=== PATIENT | female | born 1950 | race African-American/Black ===

== ENCOUNTER 2016-05-26 20:42 | Emergency (ER) | payer MEDICARE, MEDICAID ==
[~2016-05-26] VITALS: Ht 167.6 cm; Wt 51.7 kg
[~2016-05-26 20:42] MED LIST: ALBUTEROL SULF8.5 GM INH; AMLODIPINE BESY10 MG PO; ASPIRIN-LOW81 MG PO; ATENOLOL25 MG ORAL; AVAPRO150 MG ORAL; CATAPRES0.1 MG ORAL; DIOVAN80 MG PO; GUAIFENESIN-CO118 M1 ORAL; HYDROCHLOROTHIA25 MG ORAL; METOPROLOL SUCC25 MG ORAL; METOPROLOL TART25 MG ORAL; MICROZIDE12.5 M1 PO; NAPROXEN250 MG PO; RANITIDINE HCL150 MG ORAL; ZITHROMAX250 MG ORAL
[2016-05-26 21:15] VITALS: BP 154/76
--- NOTE | 2016-05-26 21:26 | Emergency Room Report ---
History of Present Illness General Chief Complaint: Multiple Trauma/Fall Source: Patient Present Illness HPI Patient is a 66-year-old female presented after a fall from a step ladder. Patient reported falling. She denied loss of consciousness. She denied having any fever. She denied feeling dizzy prior to falling. She reports having some bleeding from a laceration to the side of her head. She denied other locations of pain. The patient states that she takes medication for hypertension. She denied any other injuries. Allergies: Coded Allergies: No Known Allergies (Verified Allergy, Unknown, 12/19/05) Patient History Past Medical History: see triage record Reviewed Nursing Documentation: PMH: Agreed, PSxH: Agreed Nursing Documentation-PMH Hx Cardiac Problems: Yes Hx Hypertension: Yes Hx COPD: Yes Hx Cancer: No Hx Gastrointestinal Problems: No Hx Neurological Problems: No Hx Cerebrovascular Accident: Yes - 2010 Review of Systems All Other Systems: negative except mentioned in HPI Physical Exam Vital Signs Date Time Temp Pulse Resp B/P Pulse Ox O2 Delivery O2 Flow Rate FiO2 05/26/16 20:57 98.1 96 16 179/98 98 Room Air Sp02 EP Interpretation: reviewed, normal General Appearance: normal inspection, well appearing, no apparent distress, alert, GCS 15 Head: atraumatic ENT: normal ENT inspection, hearing grossly normal, normal voice Neck: normal inspection, full range of motion, supple, no bony tend Respiratory: normal inspection, lungs clear, normal breath sounds, no respiratory distress, no retraction, no wheezing Cardiovascular #1: regular rate, rhythm, no edema Gastrointestinal: normal inspection, normal bowel sounds, non tender, soft, no guarding, no hernia Genitourinary: no CVA tenderness Musculoskeletal: normal inspection, back normal, normal range of motion Neurologic: normal inspection, alert, responsive, speech normal Psychiatric: normal inspection, judgement/insight normal, mood/affect normal Skin: no rash, laceration - 1cm with minimal bleeding, overlying right parietal hematoma Medical Decision Making Diagnostic Impression: Primary Impression: Fall Additional Impressions: Blunt head trauma Contusion of scalp, initial encounter ER Course Patient presented for fall . Differential diagnosis included was not limited to neck fracture, CVA, close head injury, syncopal episode, basilar ischemia. Patient appeared to have a small laceration to the right side of her scalp. CT the head read by radiology showed soft tissue swelling without evident fracture there is no acute hemorrhage noted. CT cervical spine read by radiologist showed degenerative changes without fracture. At the time of discharge patient was awake alert and oriented, she was ambulatory without assistance.Patient was advised to discontinue her aspirin for the next 2 days. Patient's tetanus is up-to-date.The patient is advised to follow up with primary care doctor in 1 -2 days. Patient is advised to return if any worsening condition or if any changes in status that are concerning.Patient was given head injury precautions. Last Vital Signs Date Time Temp Pulse Resp B/P Pulse Ox O2 Delivery O2 Flow Rate FiO2 05/26/16 20:57 98.1 96 16 179/98 98 Room Air Status: improved Disposition: HOME, SELF-CARE Condition: Stable Scripts Acetaminophen (Tylenol) 325 Mg Tablet 650 MG ORAL Q6H Y for Prn Pain/Headache/Temp > 101, #30 TAB 0 Refills Prov: Isaac Dutton 05/26/16 Isaac Dutton May 26, 2016 21:26
[2016-05-26] MEDS ORDERED: Bacitracin Oint UD TOPIC ONE (21:30)
[2016-05-26] MEDS ORDERED: TYLENOL325 MG ORAL (22:14)
[2016-05-26 22:35] VITALS: BP 158/72
[2016-05-26 22:40] VITALS: BP 154/76
--- NOTE | 2016-05-27 11:01 | Diagnostic Imaging Report ---
Indication: Neck pain. Technique: Continuous helical imaging of the cervical spine was obtained transaxially from the skull base to the upper thoracic spine. 2-D coronal and sagittal reformatted images were obtained. Total Dose length Product (DLP): [address] Dose Index Volume (CTDIvol): 12 mGy Comparison: None Findings: There is no acute fracture or malalignment identified. There is no soft tissue swelling identified. 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 Some of the intervertebral discs show mild narrowing. There is reversal of cervical lordosis which is possibly due to muscle spasm. The bones are osteopenic. Impression: No acute injury Mild spondylosis [facility] has communicated the preliminary results to the Emergency Department. Their findings are largely concordant with this report. The CT scanner at [facility] is accredited by the [employer] and the scans are performed using protocols designed to limit radiation exposure to as low as reasonably achievable to attain images of sufficient resolution adequate for diagnostic evaluation.
--- NOTE | 2016-05-27 12:27 | Diagnostic Imaging Report ---
Indication: Headache Technique: Contiguous 5 mm thick transaxial imaging of the head obtained in a Siemens Sensation [address] scanner. Soft tissue and bone windows generated. Total Dose length Product (DLP): [address] Dose Index Volume (CTDIvol): 70.38 mGy Comparison: 12/21/15 Findings: There is mild prominence of the ventricles, basal cisterns, and cerebral sulci consistent with atrophy. Mild, nonspecific, white matter hypoattenuation is noted throughout the brain consistent with chronic small vessel disease. There is no midline shift, edema, acute hemorrhage, mass effect, or abnormal extra-axial fluid collections. Bones and extra osseous soft tissues are unremarkable. Some mucosal thickening noted within the paranasal sinuses. Impression: No acute intracranial bleed, mass effect or edema. Mild atrophy of the brain. Nonspecific white matter hypoattenuation probably due to chronic small vessel disease. Sinusitis [facility] has communicated the preliminary results to the Emergency Department. Their findings are largely concordant with this report. The CT scanner at [facility] is accredited by the [employer] and the scans are performed using protocols designed to limit radiation exposure to as low as reasonably achievable to attain images of sufficient resolution adequate for diagnostic evaluation.
== END 2016-05-26 22:40 | disposition home or self-care (01) ==
LOC: EMR 21:23
DX: S00.03XA Contusion of scalp, initial encounter (principal); S01.01XA Laceration without foreign body of scalp, initial encounter; I10 Essential (primary) hypertension; J44.9 Chronic obstructive pulmonary disease, unspecified; Z86.73 Personal history of transient ischemic attack (TIA), and cerebral infarction without residual deficits; W11.XXXA Fall on and from ladder, initial encounter; Y92.9 Unspecified place or not applicable; Y99.8 Other external cause status
CPT/HCPCS: 70450; 72125; 99284

== ENCOUNTER 2016-08-13 13:17 | Emergency (ER) | payer MEDICARE, MEDICAID ==
[~2016-08-13] VITALS: Ht 167.6 cm; Wt 52.2 kg
[~2016-08-13 13:17] MED LIST changes: +TYLENOL325 MG ORAL
--- NOTE | 2016-08-13 13:57 | Emergency Room Report ---
History of Present Illness General Chief Complaint: Hypertension Source: Patient, Family Member Present Illness HPI The patient presents with headache and blurred vision. When this happens in the past her high blood pressure has been out of control. She's been on these blood pressure medicines for many months now. She hasn't seen her doctor for 3 months. The headache is 9/10 and radiates towards the occiput on the R. She's never had migraines before. She just takes Tylenol at home for the pain. The headache is pounding. She's had headaches this severe in the past. She also complains about nausea. She's had some blurry vision. Her sister took her blood pressure earlier today. It was over 200 systolic and they got a diastolic of 198. She felt her sister needed to come to the hospital. Last night the patient took an extra dose of atenolol. She denies any chest pain. There is no shortness of breath. Her exercise is limited by pain in her knees. She also has some pain in her shoulders and elbows. She treats this with the Tylenol also. In the past for she's had a headache like this she's received morphine and fentanyl. She states that at home she would also take Tylenol with codeine. The patient denies any fevers, upper respiratory symptoms, change in bowels, dysuria, skin rashes. She's not on blood thinners. There is some diffuse tingling but no unilateral weakness. The patient has no oncologic problems. 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 He does not smoke or drink alcohol. Allergies: Coded Allergies: No Known Allergies (Verified Allergy, Unknown, 12/19/05) Patient History Past Medical History: see triage record Social History: Denies: smoking Social History Narrative and cares for others Reviewed Nursing Documentation: PMH: Agreed, PSxH: Agreed Nursing Documentation-PMH Hx Cardiac Problems: Yes Hx Hypertension: Yes Hx COPD: Yes Hx Cancer: No Hx Gastrointestinal Problems: No Hx Neurological Problems: No Hx Cerebrovascular Accident: Yes - 2010 Review of Systems All Other Systems: negative except mentioned in HPI Physical Exam Vital Signs Date Time Temp Pulse Resp B/P Pulse Ox O2 Delivery O2 Flow Rate FiO2 08/13/16 13:23 97.7 69 20 208/108 100 Room Air Sp02 EP Interpretation: reviewed, normal General Appearance: well appearing, no apparent distress, GCS 15, thin Head: normocephalic, atraumatic Eyes: bilateral eye PERRL, bilateral eye normal inspection ENT: moist mucus membranes Neck: supple Respiratory: lungs clear, normal breath sounds Cardiovascular #1: regular rate, rhythm Cardiovascular #2: 2+ radial (R) Gastrointestinal: normal inspection, normal bowel sounds, non tender, no mass, no bruit, non-distended, scaphoid Musculoskeletal: back normal, gait/station normal, normal range of motion Neurologic: alert, oriented x3, 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 Differential includes hypertensive urgency, malignant hypertension, uncontrolled hypertension, electrolyte imbalance, renal failure amongst others. Blood pressure is high and she symptomatic. This necessitates emergent evaluation with EKG, CT, labs. The patient will be treated with Zofran and fentanyl and possibly extra antihypertensive medication for blood pressure remains high. No red flag symptoms, but needs CT. EKG with LVH, CXR with enlarged heart. Labs unremarkable. CT with sinusitis and question of L mastoiditis (not where pain is and no sinus symptoms). Given dose of catapres. BP improved and symptoms resolved. Patient stable for outpatient observation and treatment. Laboratory Tests Test 08/13/16 13:50 08/13/16 15:14 White Blood Count 6.4 K/UL (4.8-10.8) Red Blood Count 4.03 M/UL (4.20-5.40) L Hemoglobin 13.5 G/DL (12.0-16.0) Hematocrit 38.7 % (37.0-47.0) Mean Corpuscular Volume 96 FL (80-99) Mean Corpuscular Hemoglobin 33.5 PG (27.0-31.0) H Mean Corpuscular Hemoglobin Concent 34.9 G/DL (32.0-36.0) Red Cell Distribution Width 10.9 % (11.6-14.8) L Platelet Count 218 K/UL (150-450) Mean Platelet Volume 8.3 FL (6.5-10.1) Neutrophils (%) (Auto) 50.8 % (45.0-75.0) Lymphocytes (%) (Auto) 34.7 % (20.0-45.0) Monocytes (%) (Auto) 9.8 % (1.0-10.0) Eosinophils (%) (Auto) 3.3 % (0.0-3.0) H Basophils (%) (Auto) 1.3 % (0.0-2.0) Erythrocyte Sedimentation Rate 25 MM/HR (0-30) Sodium Level 132 mEQ/L (135-145) L Potassium Level 3.5 mEQ/L (3.4-4.9) Chloride Level 92 mEQ/L (98-107) L Carbon Dioxide Level 25 mEQ/L (20-30) Anion Gap 15 (5-15) Blood Urea Nitrogen 6 mg/dL (7-23) L Creatinine 0.7 mg/dL (0.5-0.9) Estimate Glomerular Filtration Rate > 60 mL/min (>60) Glucose Level 91 mg/dL (74-106) Calcium Level 8.7 mg/dL (8.6-10.2) Total Bilirubin 0.4 mg/dL (0.0-1.2) Aspartate Amino Transferase (AST) 21 U/L (5-40) Alanine Aminotransferase (ALT) 10 U/L (3-33) Alkaline Phosphatase 72 U/L (35-104) Total Creatine Kinase 81 U/L (26-140) Creatine Kinase MB < 1.5 ng/mL (< 3.8) Creatine Kinase MB Relative Index Troponin I < 0.30 ng/mL (<=0.30) Pro-B-Type Natriuretic Peptide 255 pg/mL (0-125) H Total Protein 7.2 g/dL (6.6-8.7) Albumin 4.0 g/dL (3.5-5.2) Globulin 3.2 g/dL Albumin/Globulin Ratio 1.2 (1.0-2.7) Urine Color Pale yellow Urine Appearance Clear Urine pH 6.5 (4.5-8.0) Urine Specific [place] 1.005 (1.005-1.035) Urine Protein 1+ (NEGATIVE) H Urine Glucose (UA) Negative (NEGATIVE) Urine Ketones Negative (NEGATIVE) Urine Occult Blood 4+ (NEGATIVE) H Urine Nitrite Negative (NEGATIVE) Urine Bilirubin Negative (NEGATIVE) Urine Urobilinogen Normal MG/DL (0.0-1.0) Urine Leukocyte Esterase Negative (NEGATIVE) Urine RBC 5-10 /HPF (0 - 2) H Urine WBC 2-4 /HPF (0 - 2) Urine Squamous Epithelial Cells Few /LPF (NONE/OCC) Urine Bacteria Few /HPF (NONE) EKG Diagnostic Results Rate: normal Rhythm: NSR ST Segments: no acute changes - LVH Rhythm Strip Diag. Results EP Interpretation: yes Rhythm: NSR, no PVC's, no ectopy Chest X-Ray Diagnostic Results EP Interpretation: Yes Findings: no consolidation, no effusion, no pneumothorax, other - increased cor CT/MRI/US Diagnostic Results CT/MRI/US Diagnostic Results : Imaging Test Ordered: head Impression chronic white matter changes sinusitis and poss mastoiditis Last Vital Signs Date Time Temp Pulse Resp B/P Pulse Ox O2 Delivery O2 Flow Rate FiO2 08/13/16 16:28 76 16 140/90 98 Room Air 08/13/16 16:11 97.7 Status: improved Disposition: HOME, SELF-CARE Condition: Improved Vishal Mcneill M.D. August 13, 2016 13:57
[2016-08-13] MEDS ORDERED: fentaNYL 100 mcg/2 mL IV ONE (14:00)
[2016-08-13 14:12] LABS: BASOPHILS % (AUTO) 1.3 % (0.0-2.0); EOSINOPHILS % (AUTO) 3.3 % (0.0-3.0); LYMPHOCYTES % (AUTO) 34.7 % (20.0-45.0); MEAN CORPUSCULAR HEMOGLOBIN 33.5 PG (27.0-31.0); MEAN CORPUSCULAR HGB CONC 34.9 G/DL (32.0-36.0); MEAN CORPUSCULAR VOLUME 96 FL (80-99); MEAN PLATELET VOLUME 8.3 FL (6.5-10.1); MONOCYTES % (AUTO) 9.8 % (1.0-10.0); NEUTROPHILS % (AUTO) 50.8 % (45.0-75.0); PLATELET COUNT 218 K/UL (150-450); RED BLOOD COUNT 4.03 M/UL (4.20-5.40); RED CELL DISTRIBUTION WIDTH 10.9 % (11.6-14.8); WHITE BLOOD COUNT 6.4 K/UL (4.8-10.8)
[2016-08-13 14:20] LABS: TROPONIN I < 0.30 ng/mL (<=0.30)
[2016-08-13 14:21] LABS: ALANINE AMINOTRANSFERASE 10 U/L (3-33); ALBUMIN/GLOBULIN RATIO 1.2 (1.0-2.7); ANION GAP 15 (5-15); ASPARTATE AMINO TRANSFERASE 21 U/L (5-40); CALCIUM 8.7 mg/dL (8.6-10.2); CARBON DIOXIDE 25 mEQ/L (20-30); CHLORIDE 92 mEQ/L (98-107); CREATININE 0.7 mg/dL (0.5-0.9); GLOMERULAR FILTRATION RATE > 60 mL/min (>60); HEMOLYSIS 7; POTASSIUM 3.5 mEQ/L (3.4-4.9); SODIUM 132 mEQ/L (135-145); TOTAL PROTEIN 7.2 g/dL (6.6-8.7)
[2016-08-13 14:31] LABS: CKMB < 1.5 ng/mL (< 3.8)
[2016-08-13] MEDS ORDERED: cloNIDine 0.2mg Tab ORAL ONE (15:00)
[2016-08-13 15:32] VITALS: BP 188/97
[2016-08-13 15:45] LABS: APPEARANCE,URINE CLEAR; KETONES,URINE NEGATIVE (NEGATIVE); LEUKOCYTE ESTERASE ,URINE NEGATIVE (NEGATIVE); NITRITE,URINE NEGATIVE (NEGATIVE); PH,URINE 6.5 (4.5-8.0); PROTEIN,URINE 1+ (NEGATIVE); UROBILINOGEN,URINE NORMAL MG/DL (0.0-1.0)
[2016-08-13 15:53] LABS: BACTERIA,URINE FEW /HPF; SQUAMOUS EPITHELIAL CELL,UR FEW /LPF (NONE/OCC)
[2016-08-13 16:11] VITALS: BP 149/78
--- NOTE | 2016-08-13 16:23 | Diagnostic Imaging Report ---
Indications: Shortness of breath, dizziness Technique: Portable AP chest Findings: Comparison: 12/21/2015 Cardiac silhouette remains enlarged. Pulmonary vasculature remains within normal limits. Lungs and pleura remain clear. IMPRESSION: No evidence of acute disease, unchanged Stable chronic changes as described
[2016-08-13 16:28] VITALS: BP 140/90
--- NOTE | 2016-08-13 16:35 | Diagnostic Imaging Report ---
Indications: Vertigo Technique: Continuous helical CT imaging of the brain was performed with automatic exposure control on a Siemens sensation [address] scanner. Axial and coronal images were reconstructed at 5 mm slice thickness and interval. CTDI volume(s): 70 mGy Total DLP: 1350 mGy-cm Findings: Comparison: 05/26/16 Chronic microvascular ischemic changes bilateral cerebral periventricular and deep white matter, diffuse atrophy unchanged.. No evidence of mass or hemorrhage, other attenuation abnormality, mass effect, midline shift, hydrocephalus or increased intracranial pressure. Bone window images are unremarkable. Mucoperiosteal thickening persists in the paranasal sinuses. Partial opacification of the left mastoid air cells persists. Right Mastoid air cells are clear. IMPRESSION: No evidence of acute intracranial pathology, unchanged . Early/subtle acute abnormalities may be missed, however. If clinically indicated, MRI of the brain without and with gadolinium may be of benefit in further evaluation Stable sinusitis, left mastoiditis. Stable chronic age-related changes as described The CT scanner at [facility] is accredited by the [employer] and the scans are performed using protocols designed to limit radiation exposure to as low as reasonably achievable to attain images of sufficient resolution adequate for diagnostic evaluation.
--- NOTE | 2016-08-14 19:00 | Cardiology Report ---
APPROVED REPORT EKG Measurement Heart [id number] Normal sinus rhythm Voltage criteria for left ventricular hypertrophy Nonspecific ST abnormality Abnormal ECG
[2016-08-15] MEDS ORDERED: CATAPRES0.2 MG ORAL (21:08)
== END 2016-08-13 16:31 | disposition home or self-care (01) ==
LOC: EMR 14:39
DX: I10 Essential (primary) hypertension (principal); R51 Headache; Z86.79 Personal history of other diseases of the circulatory system; J44.9 Chronic obstructive pulmonary disease, unspecified; Z86.73 Personal history of transient ischemic attack (TIA), and cerebral infarction without residual deficits
CPT/HCPCS: 36415; 70450; 71010; 80053; 81003; 82550; 82553; 83880; 84484; 85025; 85651; 93005; 96374; 96375; 99284; J2405; J3010

== ENCOUNTER 2016-11-17 07:53 | Emergency (ER) | payer MEDICARE, MEDICAID ==
[~2016-11-17] VITALS: Ht 165.1 cm; Wt 45.4 kg
[~2016-11-17 07:53] MED LIST changes: +CATAPRES0.2 MG ORAL
[2016-11-17 07:55] VITALS: BP 189/95
[2016-11-17] MEDS ORDERED: HYDRALAZINE HCL50 MG ORAL (08:05)
[2016-11-17] MEDS ORDERED: LOPRESSOR25 M1 ORAL (08:05)
[2016-11-17 08:32] VITALS: BP 165/98
[2016-11-17 08:47] LABS: ALANINE AMINOTRANSFERASE 10 U/L (3-33); ALBUMIN/GLOBULIN RATIO 1.4 (1.0-2.7); ANION GAP 12 (5-15); ASPARTATE AMINO TRANSFERASE 19 U/L (5-40); CALCIUM 9.2 mg/dL (8.6-10.2); CARBON DIOXIDE 25 mEQ/L (20-30); CHLORIDE 91 mEQ/L (98-107); CREATININE 0.9 mg/dL (0.5-0.9); GLOMERULAR FILTRATION RATE > 60 mL/min (>60); HEMOLYSIS 4; POTASSIUM 3.4 mEQ/L (3.4-4.9); SODIUM 128 mEQ/L (135-145); TOTAL PROTEIN 7.5 g/dL (6.6-8.7)
[2016-11-17 08:49] LABS: BASOPHILS % (AUTO) 1.5 % (0.0-2.0); EOSINOPHILS % (AUTO) 3.2 % (0.0-3.0); MEAN CORPUSCULAR HEMOGLOBIN 33.9 PG (27.0-31.0); MEAN CORPUSCULAR HGB CONC 34.3 G/DL (32.0-36.0); MEAN CORPUSCULAR VOLUME 99 FL (80-99); MEAN PLATELET VOLUME 7.9 FL (6.5-10.1); MONOCYTES % (AUTO) 9.6 % (1.0-10.0); NEUTROPHILS % (AUTO) 64.8 % (45.0-75.0); PLATELET COUNT 245 K/UL (150-450); RED BLOOD COUNT 3.89 M/UL (4.20-5.40); RED CELL DISTRIBUTION WIDTH 11.3 % (11.6-14.8); TROPONIN I < 0.30 ng/mL (<=0.30); WHITE BLOOD COUNT 8.5 K/UL (4.8-10.8)
[2016-11-17 08:58] LABS: CKMB < 1.5 ng/mL (< 3.8)
--- NOTE | 2016-11-17 09:09 | Emergency Room Report ---
History of Present Illness General Chief Complaint: Hypertension Source: Patient Present Illness HPI 66-year-old female presents ED for evaluation. Patient presents with high blood pressure. States that this morning her systolic blood pressure was greater than 200. She presented with headache. Throbbing, frontal, 5/10. Patient states she gets headaches typically when her blood pressure is high. States that she is compliant with her medications but has trouble keeping her blood pressure controlled. Denies any drug use. Denies any chest pain shortness of breath. Denies photophobia, blurry vision, nausea or vomiting. No other aggravating relieving factors. Denies any other associated symptoms Allergies: Coded Allergies: No Known Allergies (Verified Allergy, Unknown, 12/19/05) Patient History Past Medical History: HTN, COPD, CVA/TIA Past Surgical History: none Pertinent Family History: none Social History: Denies: smoking, alcohol use, drug use Now: No Immunizations: UTD Reviewed Nursing Documentation: PMH: Agreed, PSxH: Agreed Nursing Documentation-PMH Hx Cardiac Problems: Yes - Palpatations Hx Hypertension: Yes Hx COPD: Yes Hx Cancer: No Hx Gastrointestinal Problems: No Hx Neurological Problems: No Hx Cerebrovascular Accident: Yes - 2010 Review of Systems All Other Systems: negative except mentioned in HPI Physical Exam Vital Signs Date Time Temp Pulse Resp B/P (MAP) Pulse Ox O2 Delivery O2 Flow Rate FiO2 11/17/16 07:55 97.7 62 16 189/95 98 Room Air Sp02 EP Interpretation: reviewed, normal General Appearance: no apparent distress, alert, GCS 15, non-toxic Head: normocephalic, atraumatic Eyes: bilateral eye normal inspection, bilateral eye PERRL ENT: hearing grossly normal, normal pharynx, no angioedema, normal voice Neck: full range of motion, supple, no meningismus, supple/symm/no masses Respiratory: chest non-tender, lungs clear, normal breath sounds, speaking full sentences Cardiovascular #1: regular rate, rhythm, no edema Cardiovascular #2: 2+ carotid (R), 2+ carotid (L), 2+ radial (R), 2+ radial (L) , 2+ dorsalis pedis (R), 2+ dorsalis pedis (L) Gastrointestinal: normal bowel sounds, non tender, soft, non-distended, no guarding, no rebound Rectal: deferred Genitourinary: normal inspection, no CVA tenderness Musculoskeletal: back normal, gait/station normal, normal range of motion, non- tender Neurologic: alert, oriented x3, responsive, motor strength/tone normal, sensory intact, speech normal Psychiatric: judgement/insight normal, memory normal, mood/affect normal, no suicidal/homicidal ideation Reflexes: 3+ bicep (R), 3+ bicep (L), 3+ tricep (R), 3+ tricep (L), 3+ knee (R) , 3+ knee (L) Skin: normal color, no rash, warm/dry, well hydrated Lymphatic: no adenopathy Medical Decision Making Diagnostic Impression: Primary Impression: Hypertension Qualified Codes: I10 - Essential (primary) hypertension ER Course Hospital Course 66-year-old female presents ED complaining of elevated BP, c/o headache Differential diagnoses include: hypertensive urgency, hypertensive emergency, arrythmia, MS/ACS Clinical course Patient placed on stretcher. After initial history and physical I ordered labs , EKG, CT labs reviewed- all electrolytes normal, troponins negative, no leukocytosis, hemoglobin/hematocrit stable EKG - NSR, no acute ischemic changes intrpreted by me CT Head unremarkable upon reassessment patient's BP has reduced on its own without intervention. Patient is on 3 medications to be taken twice daily. Patient also prescribed clonidine. I recommend that patient take a clonidine if her blood pressure is high before she is scheduled for her next dose of medications. I. I feel this is a highly complex case requiring extensive working including EKG/Rhythm strip, Xray/CT/US, Blood/urine lab work, repeat exams while in ED, and administration of strong opiates/narcotics for pain control, admission to hospital or close patient follow up. Diagnosis - hypertension Stable and discharged to home. Take medications as directed. Instructed to followup with PMD. Return to ED if symptoms recur or worsen Labs Test 11/17/16 08:25 White Blood Count 8.5 K/UL (4.8-10.8) Red Blood Count 3.89 M/UL (4.20-5.40) Hemoglobin 13.2 G/DL (12.0-16.0) Hematocrit 38.4 % (37.0-47.0) Mean Corpuscular Volume 99 FL (80-99) Mean Corpuscular Hemoglobin 33.9 PG (27.0-31.0) Mean Corpuscular Hemoglobin Concent 34.3 G/DL (32.0-36.0) Red Cell Distribution Width 11.3 % (11.6-14.8) Platelet Count 245 K/UL (150-450) Mean Platelet Volume 7.9 FL (6.5-10.1) Neutrophils (%) (Auto) 64.8 % (45.0-75.0) Lymphocytes (%) (Auto) 21.0 % (20.0-45.0) Monocytes (%) (Auto) 9.6 % (1.0-10.0) Eosinophils (%) (Auto) 3.2 % (0.0-3.0) Basophils (%) (Auto) 1.5 % (0.0-2.0) Sodium Level 128 mEQ/L (135-145) Potassium Level 3.4 mEQ/L (3.4-4.9) Chloride Level 91 mEQ/L (98-107) Carbon Dioxide Level 25 mEQ/L (20-30) Anion Gap 12 (5-15) Blood Urea Nitrogen 8 mg/dL (7-23) Creatinine 0.9 mg/dL (0.5-0.9) Estimat Glomerular Filtration Rate > 60 mL/min (>60) Glucose Level 95 mg/dL (74-106) Calcium Level 9.2 mg/dL (8.6-10.2) Total Bilirubin 0.7 mg/dL (0.0-1.2) Aspartate Amino Transf (AST/SGOT) 19 U/L (5-40) Alanine Aminotransferase (ALT/SGPT) 10 U/L (3-33) Alkaline Phosphatase 73 U/L (35-104) Total Creatine Kinase 64 U/L (26-140) Creatine Kinase MB < 1.5 ng/mL (< 3.8) Creatine Kinase MB Relative Index Troponin I < 0.30 ng/mL (<=0.30) Total Protein 7.5 g/dL (6.6-8.7) Albumin 4.4 g/dL (3.5-5.2) Globulin 3.1 g/dL Albumin/Globulin Ratio 1.4 (1.0-2.7) EKG Diagnostic Results Rate: normal Rhythm: NSR ST Segments: no acute changes ASA given to the pt in ED: No Rhythm Strip Diag. Results EP Interpretation: yes Rhythm: NSR, no PVC's, no ectopy CT/MRI/US Diagnostic Results CT/MRI/US Diagnostic Results : Imaging Test Ordered: CT Head Last Vital Signs Date Time Temp Pulse Resp B/P (MAP) Pulse Ox O2 Delivery O2 Flow Rate FiO2 11/17/16 08:32 97.7 58 17 165/98 99 Room Air Status: improved Disposition: HOME, SELF-CARE Condition: Stable Referrals: Tommy Enrique MD (PCP) TAL SEGURA M.D. Nov 17, 2016 09:09
[2016-11-17 09:15] VITALS: BP 174/78
--- NOTE | 2016-11-17 09:19 | Diagnostic Imaging Report ---
Indication: Headache Technique: Contiguous 5 mm thick transaxial imaging of the head obtained in a Siemens Sensation [address] scanner. Soft tissue and bone windows generated. Total Dose length Product (DLP): [address] Dose Index Volume (CTDIvol): 70.38, 0.15 mGy Comparison: 08/13/16 Findings: There is moderate prominence of the ventricles, basal cisterns, and cerebral sulci consistent with atrophy. Moderate, nonspecific, white matter hypoattenuation is noted throughout the brain consistent with chronic small vessel disease. There is no midline shift, edema, acute hemorrhage, mass effect, or abnormal extra-axial fluid collections. Bones and extra osseous soft tissues are unremarkable. There is mucosal thickening in the ethmoid sinus. Impression: No acute intracranial bleed, mass effect or edema. Moderate atrophy of the brain. Evidence of chronic small vessel disease involving white matter tracts. Sinusitis The CT scanner at [facility] is accredited by the [employer] and the scans are performed using dose optimization techniques as appropriate to a performed exam including Automatic Exposure control.
[2016-11-17] MEDS ORDERED: Famotidine 20 MG/ 2ML VIAL IVP ONE (09:30)
[2016-11-17 09:37] VITALS: BP 174/78
== END 2016-11-17 09:46 | disposition home or self-care (01) ==
LOC: EMR 08:16
DX: I10 Essential (primary) hypertension (principal); J44.9 Chronic obstructive pulmonary disease, unspecified; Z86.73 Personal history of transient ischemic attack (TIA), and cerebral infarction without residual deficits
CPT/HCPCS: 36415; 70450; 80053; 82550; 82553; 84484; 85025; 93005; 96374; 99284; S0028

== ENCOUNTER 2017-04-19 19:11 | Inpatient (IN) | payer MEDICARE, MEDICAID ==
[~2017-04-19] VITALS: Ht 165.1 cm; Wt 46.7 kg
[~2017-04-19 19:11] MED LIST changes: +HYDRALAZINE HCL50 MG ORAL; +LOPRESSOR25 M1 ORAL
[2017-04-19 20:15] VITALS: BP 220/125
[2017-04-19] MEDS ORDERED: Albuterol ud Inhalation HHN ONE (20:45)
[2017-04-19] MEDS ORDERED: Ipratropium 0.02% Inh Soln 2.5ml UD HHN ONE (20:45)
[2017-04-19 21:40] VITALS: BP 192/92
[2017-04-19 21:51] LABS: BASOPHILS % (AUTO) 1.6 % (0.0-2.0); EOSINOPHILS % (AUTO) 2.2 % (0.0-3.0); HEMATOCRIT 32.3 % (37.0-47.0); HEMOGLOBIN 11.3 G/DL (12.0-16.0); LYMPHOCYTES % (AUTO) 30.2 % (20.0-45.0); MEAN CORPUSCULAR VOLUME 97 FL (80-99); MONOCYTES % (AUTO) 13.5 % (1.0-10.0); NEUTROPHILS % (AUTO) 52.5 % (45.0-75.0); PLATELET COUNT 200 K/UL (150-450); RED BLOOD COUNT 3.33 M/UL (4.20-5.40); RED CELL DISTRIBUTION WIDTH 11.6 % (11.6-14.8); WHITE BLOOD COUNT 6.5 K/UL (4.8-10.8)
[2017-04-19] MEDS ORDERED: Solu-MEDROL 125mg Inj IVP ONE (22:00)
[2017-04-19 22:03] LABS: ANION GAP 10 mmol/L (5-15); BLOOD UREA NITROGEN 15 mg/dL (7-18); CALCIUM 8.9 MG/DL (8.5-10.1); CARBON DIOXIDE 29 MMOL/L (21-32); CHLORIDE 100 MMOL/L (98-107); POTASSIUM 3.1 MMOL/L (3.5-5.1); SODIUM 139 MMOL/L (136-145)
[2017-04-19] MEDS ORDERED: Nitroglycerin Subl 0.4mg tab SL PRN (22:15)
[2017-04-19] MEDS ORDERED: Miralax 17gm pkt ORAL PRN (22:15)
[2017-04-19] MEDS ORDERED: Labetalol 5mg/ml 20ml vial IV PRN (22:15)
[2017-04-19] MEDS ORDERED: dilTIAZem HCl 25mg/5ml Inj IV PRN (22:15)
[2017-04-19 22:18] LABS: ALANINE AMINOTRANSFERASE 15 U/L (12-78); ALBUMIN 3.7 G/DL (3.4-5.0); ALBUMIN/GLOBULIN RATIO 1.1 (1.0-2.7); ALKALINE PHOSPHATASE 72 U/L (46-116); ASPARTATE AMINO TRANSFERASE 18 U/L (15-37); BILIRUBIN,TOTAL 0.5 MG/DL (0.2-1.0); CKMB < 0.5 NG/ML (0.0-3.6); CREATINE KINASE 63 U/L (26-308)
[2017-04-19 22:30] VITALS: BP 168/88
--- NOTE | 2017-04-19 23:16 | Emergency Room Report ---
History of Present Illness General Chief Complaint: Upper Respiratory Illness Source: Patient Present Illness HPI Patient is a 67-year-old female who presented after increased cough congestion and difficulty breathing. Patient gradual onset of symptoms. She reports having some chest tightness she states that she had been compliant with her blood pressure medications. She reports having prior history of hypertension. She denies being a smoker Allergies: Coded Allergies: No Known Allergies (Verified Allergy, Unknown, 12/19/05) Patient History Past Medical History: see triage record Reviewed Nursing Documentation: PMH: Agreed, PSxH: Agreed Nursing Documentation-PMH Hx Cardiac Problems: Yes - Palpatations Hx Hypertension: Yes Hx COPD: Yes Hx Cancer: No Hx Gastrointestinal Problems: No Hx Neurological Problems: No Hx Cerebrovascular Accident: Yes - 2010 Review of Systems All Other Systems: negative except mentioned in HPI Physical Exam Vital Signs Date Time Temp Pulse Resp B/P (MAP) Pulse Ox O2 Delivery O2 Flow Rate FiO2 04/19/17 20:02 97.7 84 16 226/127 97 Room Air Sp02 EP Interpretation: reviewed, normal General Appearance: normal inspection, well appearing, no apparent distress, alert, GCS 15 Head: atraumatic ENT: normal ENT inspection, hearing grossly normal, normal voice Neck: normal inspection, full range of motion, supple, no bony tend Respiratory: normal inspection, no respiratory distress, no retraction, speaking full sentences, wheezing Cardiovascular #1: regular rate, rhythm, no edema Gastrointestinal: normal inspection, normal bowel sounds, non tender, soft, no guarding, no hernia Genitourinary: no CVA tenderness Musculoskeletal: normal inspection, back normal, normal range of motion Neurologic: normal inspection, alert, oriented x3, responsive, cone operator III-XII nml as tested, speech normal Psychiatric: normal inspection, judgement/insight normal, mood/affect normal Skin: normal inspection, normal color, no rash Medical Decision Making Diagnostic Impression: Primary Impression: Uncontrolled hypertension Additional Impressions: Headache Chest pain ER Course Patient presented for chest pain. Differential included but was not limited to anemia, pneumonia, pneumothorax, myocardial infarction, pericardial effusion, congestive heart failure, acidosis. Because of complexity of patient's case laboratory testing and imaging studies were ordered. the patient noted be markedly hypertensive. She is given clonidine by mouth as well as breathing treatment. Patient was noted to be continued to have some chest discomfort. The patient was given clonidine for blood pressure. Dr. Tommy Enrique was contacted for inpatient management Labs Test 04/19/17 21:05 White Blood Count 6.5 K/UL (4.8-10.8) Red Blood Count 3.33 M/UL (4.20-5.40) Hemoglobin 11.3 G/DL (12.0-16.0) Hematocrit 32.3 % (37.0-47.0) Mean Corpuscular Volume 97 FL (80-99) Mean Corpuscular Hemoglobin 33.9 PG (27.0-31.0) Mean Corpuscular Hemoglobin Concent 34.9 G/DL (32.0-36.0) Red Cell Distribution Width 11.6 % (11.6-14.8) Platelet Count 200 K/UL (150-450) Mean Platelet Volume 8.6 FL (6.5-10.1) Neutrophils (%) (Auto) 52.5 % (45.0-75.0) Lymphocytes (%) (Auto) 30.2 % (20.0-45.0) Monocytes (%) (Auto) 13.5 % (1.0-10.0) Eosinophils (%) (Auto) 2.2 % (0.0-3.0) Basophils (%) (Auto) 1.6 % (0.0-2.0) Sodium Level 139 MMOL/L (136-145) Potassium Level 3.1 MMOL/L (3.5-5.1) Chloride Level 100 MMOL/L (98-107) Carbon Dioxide Level 29 MMOL/L (21-32) Anion Gap 10 mmol/L (5-15) Blood Urea Nitrogen 15 mg/dL (7-18) Creatinine 1.0 MG/DL (0.55-1.30) Estimat Glomerular Filtration Rate > 60 mL/min (>60) Glucose Level 93 MG/DL (74-106) Calcium Level 8.9 MG/DL (8.5-10.1) Total Bilirubin 0.5 MG/DL (0.2-1.0) Aspartate Amino Transf (AST/SGOT) 18 U/L (15-37) Alanine Aminotransferase (ALT/SGPT) 15 U/L (12-78) Alkaline Phosphatase 72 U/L (46-116) Total Creatine Kinase 63 U/L (26-308) Creatine Kinase MB < 0.5 NG/ML (0.0-3.6) Creatine Kinase MB Relative Index 0.7 Troponin I 0.000 ng/mL (0.000-0.056) Pro-B-Type Natriuretic Peptide 429 pg/mL (0-125) Total Protein 7.0 G/DL (6.4-8.2) Albumin 3.7 G/DL (3.4-5.0) Globulin 3.3 g/dL Albumin/Globulin Ratio 1.1 (1.0-2.7) EKG Diagnostic Results Rate: normal Rhythm: NSR ST Segments: no acute changes Rhythm Strip Diag. Results EP Interpretation: yes Rhythm: NSR, no PVC's, no ectopy Last Vital Signs Date Time Temp Pulse Resp B/P (MAP) Pulse Ox O2 Delivery O2 Flow Rate FiO2 04/19/17 21:40 97.9 92 19 192/92 100 Room Air Status: improved Disposition: ADMITTED INPATIENT Condition: Serious Referrals: Tommy Enrique MD (PCP) Isaac Dutton Apr 19, 2017 23:16
[2017-04-19 23:55] VITALS: BP 160/99
[2017-04-20] MEDS: Enalaprilat 2.5mg/2ml Inj IV PRN ×2 (01:15→12:22)
[2017-04-20 04:00] VITALS: BP 160/91
[2017-04-20] MEDS: Solu-MEDROL 125mg Inj IV SCH ×4 (06:48→17:45)
[2017-04-20] MEDS: Albuterol/Ipratropium 3ml neb HHN PRN ×2 (06:52→15:29)
[2017-04-20 08:00] VITALS: BP 153/77
[2017-04-20 08:12] LABS: INR 0.9 (0.9-1.1)
[2017-04-20 08:23] LABS: HEMATOCRIT 32.8 % (37.0-47.0); HEMOGLOBIN 11.2 G/DL (12.0-16.0); MEAN CORPUSCULAR VOLUME 98 FL (80-99); PLATELET COUNT 204 K/UL (150-450); RED BLOOD COUNT 3.34 M/UL (4.20-5.40); RED CELL DISTRIBUTION WIDTH 11.4 % (11.6-14.8); WHITE BLOOD COUNT 5.1 K/UL (4.8-10.8)
[2017-04-20 08:56] LABS: CHOLESTEROL 163 MG/DL (< 200); HDL CHOLESTEROL 111 MG/DL (40-60); TRIGLYCERIDES 32 MG/DL (30-150)
[2017-04-20] MEDS ORDERED: cloNIDine 0.2mg Tab ORAL SCH (09:00)
--- NOTE | 2017-04-20 09:03 | Diagnostic Imaging Report ---
Indication: Shortness of breath Technique: One view of the chest Comparison: 08/13/2016 Findings: Lungs and pleural spaces are clear. The heart is borderline enlarged. The aorta is elongated and tortuous. There is no significant interim change Impression: Borderline cardiomegaly. No acute process
[2017-04-20] MEDS: HydrALAZINE 50mg tab ORAL SCH ×2 (10:01→17:46)
[2017-04-20] MEDS: Irbesartan 150mg tablet ORAL SCH ×2 (10:01→20:37)
[2017-04-20] MEDS: Metoprolol Succinate XL 25mg tab ORAL SCH (10:02)
[2017-04-20] MEDS: Heparin 5000 units/ml inj SUBQ SCH ×2 (10:11→20:39)
[2017-04-20 12:00] VITALS: BP 164/97
[2017-04-20 13:00] VITALS: BP 137/71
--- NOTE | 2017-04-20 14:28 | Consultation ---
History of Present Illness General Date patient seen: Apr 20, 2017 Chief Complaint: Upper Respiratory Illness Referring physician: Dr. Cedeno Reason for Consultation: COPD Present Illness HPI 67-year-old female with hx of HTN, COPD presented to ER with CC of after increased cough congestion and difficulty breathing with gradual onset of symptoms. She reports having some chest tightness she states that she had been compliant with her blood pressure medications. She reports having prior history of hypertension. Her initial Systolic BP was > 220. She is admitted to telemetry for hypertensive emergency. Allergies: Coded Allergies: No Known Allergies (Verified Allergy, Unknown, 12/19/05) Medication History Scheduled Amlodipine Besylate* (Amlodipine Besylate*), 10 MG PO DAILY, (Reported) Aspirin (Aspirin EC), 81 MG PO DAILY, (Reported) Clonidine Hcl* (Catapres*), 0.1 MG ORAL EVERY 6 HOURS, (Reported) Clonidine Hcl* (Catapres*), 0.2 MG ORAL Q12HR Hydralazine Hcl* (Hydralazine Hcl*), 50 MG ORAL BID, (Reported) Hydrochlorothiazide* (Hydrochlorothiazide*), 25 MG ORAL DAILY, (Reported) Irbesartan* (Avapro*), 150 MG ORAL Q12HR Metoprolol Succinate* (Metoprolol Succinate*), 25 MG ORAL DAILY, (Reported) Metoprolol Tartrate (Metoprolol Tartrate), 25 MG ORAL EVERY 12 HOURS, (Reported) Ranitidine Hcl* (Zantac*), 150 MG ORAL TWICE A DAY Valsartan (Diovan), 160 MG PO BID, (Reported) Scheduled PRN Acetaminophen (Tylenol), 650 MG ORAL Q6H PRN for Prn Pain/Headache/Temp > 101 Patient History Healthcare decision maker Resuscitation status Advanced Directive on File Past Medical/Surgical History Past Medical/Surgical History: (1) COPD (chronic obstructive pulmonary disease) (2) Hypertension (3) Tobacco use Review of Systems All Other Systems: negative except mentioned in HPI Physical Exam General Appearance: cachetic Lines, tubes and drains: peripheral HEENT: normocephalic, atraumatic Neck: non-tender, normal alignment Respiratory/Chest: chest wall non-tender, lungs clear Breasts: no masses Cardiovascular/Chest: normal peripheral pulses Abdomen: normal bowel sounds Genitourinary/Rectal: normal genital exam Last 24 Hour Vital Signs Date Time Temp Pulse Resp B/P (MAP) Pulse Ox O2 Delivery O2 Flow Rate FiO2 04/20/17 12:22 164/97 04/20/17 12:00 84 04/20/17 12:00 97.2 82 18 164/97 99 Room Air 04/20/17 10:02 92 153/77 04/20/17 10:01 153/77 04/20/17 10:01 153/77 04/20/17 10:01 153/77 04/20/17 10:01 92 153/77 04/20/17 08:00 97.9 92 18 153/77 99 Room Air 04/20/17 08:00 89 04/20/17 07:00 88 161/95 04/20/17 06:54 82 18 100 Room Air 04/20/17 06:45 80 16 98 Room Air 04/20/17 06:30 84 18 Room Air 04/20/17 04:00 97.2 86 16 160/91 99 Room Air 04/20/17 01:15 208/112 04/20/17 00:30 97.8 84 18 160/99 99 Room Air 04/19/17 23:55 97.8 84 18 160/99 99 Room Air 04/19/17 22:30 98.1 85 21 168/88 100 Room Air 04/19/17 21:40 97.9 92 19 192/92 100 Room Air 04/19/17 21:18 73 18 99 Room Air 04/19/17 21:18 77 17 Room Air 04/19/17 21:18 77 17 97 Room Air 04/19/17 21:13 226/127 04/19/17 20:15 91 17 Room Air 04/19/17 20:15 97.8 91 17 220/125 99 Room Air 04/19/17 20:02 97.7 84 16 226/127 97 Room Air Intake and Output 04/19/17 04/20/17 19:00 07:00 Intake Total 240 ml Balance 240 ml Intake Oral 240 ml Laboratory Tests Test 04/19/17 21:05 04/20/17 05:40 White Blood Count 6.5 K/UL (4.8-10.8) 5.1 K/UL (4.8-10.8) Red Blood Count 3.33 M/UL (4.20-5.40) L 3.34 M/UL (4.20-5.40) L Hemoglobin 11.3 G/DL (12.0-16.0) L 11.2 G/DL (12.0-16.0) L Hematocrit 32.3 % (37.0-47.0) L 32.8 % (37.0-47.0) L Mean Corpuscular Volume 97 FL (80-99) 98 FL (80-99) Mean Corpuscular Hemoglobin 33.9 PG (27.0-31.0) H 33.6 PG (27.0-31.0) H Mean Corpuscular Hemoglobin Concent 34.9 G/DL (32.0-36.0) 34.2 G/DL (32.0-36.0) Red Cell Distribution Width 11.6 % (11.6-14.8) 11.4 % (11.6-14.8) L Platelet Count 200 K/UL (150-450) 204 K/UL (150-450) Mean Platelet Volume 8.6 FL (6.5-10.1) 7.1 FL (6.5-10.1) Neutrophils (%) (Auto) 52.5 % (45.0-75.0) % (45.0-75.0) Lymphocytes (%) (Auto) 30.2 % (20.0-45.0) % (20.0-45.0) Monocytes (%) (Auto) 13.5 % (1.0-10.0) H % (1.0-10.0) Eosinophils (%) (Auto) 2.2 % (0.0-3.0) % (0.0-3.0) Basophils (%) (Auto) 1.6 % (0.0-2.0) % (0.0-2.0) Sodium Level 139 MMOL/L (136-145) Potassium Level 3.1 MMOL/L (3.5-5.1) L Chloride Level 100 MMOL/L (98-107) Carbon Dioxide Level 29 MMOL/L (21-32) Anion Gap 10 mmol/L (5-15) Blood Urea Nitrogen 15 mg/dL (7-18) Creatinine 1.0 MG/DL (0.55-1.30) Estimat Glomerular Filtration Rate > 60 mL/min (>60) Glucose Level 93 MG/DL (74-106) Calcium Level 8.9 MG/DL (8.5-10.1) Total Bilirubin 0.5 MG/DL (0.2-1.0) Aspartate Amino Transf (AST/SGOT) 18 U/L (15-37) Alanine Aminotransferase (ALT/SGPT) 15 U/L (12-78) Alkaline Phosphatase 72 U/L (46-116) Total Creatine Kinase 63 U/L (26-308) Creatine Kinase MB < 0.5 NG/ML (0.0-3.6) Creatine Kinase MB Relative Index 0.7 Troponin I 0.000 ng/mL (0.000-0.056) 0.000 ng/mL (0.000-0.056) Pro-B-Type Natriuretic Peptide 429 pg/mL (0-125) H Total Protein 7.0 G/DL (6.4-8.2) Albumin 3.7 G/DL (3.4-5.0) Globulin 3.3 g/dL Albumin/Globulin Ratio 1.1 (1.0-2.7) Differential Total Cells Counted 100 Neutrophils % (Manual) 95 % (45-75) H Lymphocytes % (Manual) 3 % (20-45) L Monocytes % (Manual) 2 % (1-10) Eosinophils % (Manual) 0 % (0-3) Basophils % (Manual) 0 % (0-2) Band Neutrophils 0 % (0-8) Platelet Estimate Adequate Platelet Morphology Normal Red Blood Cell Morphology Normal Prothrombin Time 9.9 SEC (9.30-11.50) Prothromb Time International Ratio 0.9 (0.9-1.1) Activated Partial Thromboplast Time 24 SEC (23-33) C-Reactive Protein, Quantitative < 0.4 mg/dL (0.00-0.90) Triglycerides Level 32 MG/DL (30-150) Cholesterol Level 163 MG/DL (< 200) LDL Cholesterol 52 mg/dL (<100) HDL Cholesterol 111 MG/DL (40-60) H Cholesterol/HDL Ratio 1.5 (3.3-4.4) L Thyroid Stimulating Hormone (TSH) 0.496 uiU/mL (0.358-3.740) Height (Feet): 5 Height (Inches): 5.00 Weight (Pounds): 103 Medications Current Medications Medications (Trade) Dose Ordered Sig/Oumar Route PRN Reason Start Time Stop Time Status Last Admin Dose Admin Acetaminophen (Tylenol) 650 mg Q4H PRN ORAL fever (temp>100.5 F)/headache 04/20/17 15:15 05/20/17 15:14 Albuterol/ Ipratropium (Albuterol/ Ipratropium) 3 ml Q4H PRN HHN Shortness of Breath 04/19/17 22:15 04/24/17 22:14 04/20/17 06:52 Amlodipine Besylate (Norvasc) 10 mg DAILY ORAL 04/20/17 09:00 05/20/17 08:59 04/20/17 10:01 Clonidine HCl (Catapres tab) 0.2 mg Q12HR ORAL 04/20/17 09:00 05/20/17 08:59 04/20/17 10:01 Diltiazem HCl (Cardizem) 10 mg EVERY HOUR PRN IV heart rate more than 120, 04/19/17 22:15 05/19/17 22:14 Enalaprilat (Vasotec) 2.5 mg Q6H PRN IV sbp more than 160 04/19/17 22:15 05/19/17 22:14 04/20/17 12:22 Heparin Sodium (Porcine) (Heparin 5000 units/ml) 5,000 units EVERY 12 HOURS SUBQ 04/20/17 09:00 05/20/17 08:59 04/20/17 10:11 Hydralazine HCl (Apresoline) 50 mg BID ORAL 04/20/17 09:00 05/20/17 08:59 04/20/17 10:01 Hydrochlorothiazide (Hydrodiuril) 25 mg DAILY ORAL 04/20/17 09:00 05/20/17 08:59 04/20/17 10:00 Irbesartan (Avapro) 150 mg Q12HR ORAL 04/20/17 09:00 05/20/17 08:59 04/20/17 10:01 Labetalol HCl (Normodyne) 20 mg Q1H PRN IV sbp more than 170 04/20/17 12:15 05/20/17 12:14 Methylprednisolone Sodium Succinate (Solu-MEDROL) 60 mg EVERY 6 HOURS IV 04/20/17 00:00 05/20/17 00:00 04/20/17 12:05 Metoprolol Succinate (Toprol XL) 25 mg DAILY ORAL 04/20/17 09:00 05/20/17 08:59 04/20/17 10:02 Nitroglycerin (Ntg) 0.4 mg Every 5 Minutes PRN SL Prn Chest Pain 04/19/17 22:15 05/19/17 22:14 Ondansetron HCl (Zofran) 4 mg Q6H PRN IVP Nausea & Vomiting 04/19/17 22:15 05/19/17 22:14 Pantoprazole (Protonix) 40 mg DAILY ORAL 04/20/17 09:00 05/20/17 08:59 04/20/17 10:01 Polyethylene Glycol (Miralax) 17 gm DAILYPRN PRN ORAL Constipation 04/19/17 22:15 05/19/17 22:14 Temazepam (Restoril) 15 mg HSPRN PRN ORAL Insomnia 04/19/17 22:15 04/26/17 22:14 Assessment/Plan Problem List: (1) Hypertensive emergency ICD Codes: I16.1 - Hypertensive emergency SNOMED: 971212393233445 (2) Tobacco use (3) COPD (chronic obstructive pulmonary disease) ICD Codes: J44.9 - Chronic obstructive pulmonary disease, unspecified SNOMED: 18947109 (4) Hypertension ICD Codes: I10 - Essential (primary) hypertension SNOMED: 39621387 (5) ACS (acute coronary syndrome) ICD Codes: I24.9 - Acute ischemic heart disease, unspecified SNOMED: 931949367 Assessment/Plan monitor and treatm BP serial ekg, torponin, echo cardio to see respiratory treatment titrate fio2 to sat of 92% dvt prophylaxis. EVANS ELLIS Apr 20, 2017 14:28
--- NOTE | 2017-04-20 15:10 | Cardiology Progress Note ---
Assessment/Plan Assessment/Plan cough perisitetn post uri tobacco use do copd htn cough induced cp all trop neg so far resuem antihypertensive but avoid acei may need ct pumwu in light of tobacco use do will leave to dr coulter [id number] Objective Last 24 Hour Vital Signs Date Time Temp Pulse Resp B/P (MAP) Pulse Ox O2 Delivery O2 Flow Rate FiO2 04/20/17 12:22 164/97 04/20/17 12:00 84 04/20/17 12:00 97.2 82 18 164/97 99 Room Air 04/20/17 10:02 92 153/77 04/20/17 10:01 153/77 04/20/17 10:01 153/77 04/20/17 10:01 153/77 04/20/17 10:01 92 153/77 04/20/17 08:00 97.9 92 18 153/77 99 Room Air 04/20/17 08:00 89 04/20/17 07:00 88 161/95 04/20/17 06:54 82 18 100 Room Air 04/20/17 06:45 80 16 98 Room Air 04/20/17 06:30 84 18 Room Air 04/20/17 04:00 97.2 86 16 160/91 99 Room Air 04/20/17 01:15 208/112 04/20/17 00:30 97.8 84 18 160/99 99 Room Air 04/19/17 23:55 97.8 84 18 160/99 99 Room Air 04/19/17 22:30 98.1 85 21 168/88 100 Room Air 04/19/17 21:40 97.9 92 19 192/92 100 Room Air 04/19/17 21:18 73 18 99 Room Air 04/19/17 21:18 77 17 Room Air 04/19/17 21:18 77 17 97 Room Air 04/19/17 21:13 226/127 04/19/17 20:15 91 17 Room Air 04/19/17 20:15 97.8 91 17 220/125 99 Room Air 04/19/17 20:02 97.7 84 16 226/127 97 Room Air Intake and Output 04/19/17 04/20/17 19:00 07:00 Intake Total 240 ml Balance 240 ml Intake Oral 240 ml Laboratory Tests Test 04/19/17 21:05 04/20/17 05:40 White Blood Count 6.5 K/UL (4.8-10.8) 5.1 K/UL (4.8-10.8) Red Blood Count 3.33 M/UL (4.20-5.40) L 3.34 M/UL (4.20-5.40) L Hemoglobin 11.3 G/DL (12.0-16.0) L 11.2 G/DL (12.0-16.0) L Hematocrit 32.3 % (37.0-47.0) L 32.8 % (37.0-47.0) L Mean Corpuscular Volume 97 FL (80-99) 98 FL (80-99) Mean Corpuscular Hemoglobin 33.9 PG (27.0-31.0) H 33.6 PG (27.0-31.0) H Mean Corpuscular Hemoglobin Concent 34.9 G/DL (32.0-36.0) 34.2 G/DL (32.0-36.0) Red Cell Distribution Width 11.6 % (11.6-14.8) 11.4 % (11.6-14.8) L Platelet Count 200 K/UL (150-450) 204 K/UL (150-450) Mean Platelet Volume 8.6 FL (6.5-10.1) 7.1 FL (6.5-10.1) Neutrophils (%) (Auto) 52.5 % (45.0-75.0) % (45.0-75.0) Lymphocytes (%) (Auto) 30.2 % (20.0-45.0) % (20.0-45.0) Monocytes (%) (Auto) 13.5 % (1.0-10.0) H % (1.0-10.0) Eosinophils (%) (Auto) 2.2 % (0.0-3.0) % (0.0-3.0) Basophils (%) (Auto) 1.6 % (0.0-2.0) % (0.0-2.0) Sodium Level 139 MMOL/L (136-145) Potassium Level 3.1 MMOL/L (3.5-5.1) L Chloride Level 100 MMOL/L (98-107) Carbon Dioxide Level 29 MMOL/L (21-32) Anion Gap 10 mmol/L (5-15) Blood Urea Nitrogen 15 mg/dL (7-18) Creatinine 1.0 MG/DL (0.55-1.30) Estimat Glomerular Filtration Rate > 60 mL/min (>60) Glucose Level 93 MG/DL (74-106) Calcium Level 8.9 MG/DL (8.5-10.1) Total Bilirubin 0.5 MG/DL (0.2-1.0) Aspartate Amino Transf (AST/SGOT) 18 U/L (15-37) Alanine Aminotransferase (ALT/SGPT) 15 U/L (12-78) Alkaline Phosphatase 72 U/L (46-116) Total Creatine Kinase 63 U/L (26-308) Creatine Kinase MB < 0.5 NG/ML (0.0-3.6) Creatine Kinase MB Relative Index 0.7 Troponin I 0.000 ng/mL (0.000-0.056) 0.000 ng/mL (0.000-0.056) Pro-B-Type Natriuretic Peptide 429 pg/mL (0-125) H Total Protein 7.0 G/DL (6.4-8.2) Albumin 3.7 G/DL (3.4-5.0) Globulin 3.3 g/dL Albumin/Globulin Ratio 1.1 (1.0-2.7) Differential Total Cells Counted 100 Neutrophils % (Manual) 95 % (45-75) H Lymphocytes % (Manual) 3 % (20-45) L Monocytes % (Manual) 2 % (1-10) Eosinophils % (Manual) 0 % (0-3) Basophils % (Manual) 0 % (0-2) Band Neutrophils 0 % (0-8) Platelet Estimate Adequate Platelet Morphology Normal Red Blood Cell Morphology Normal Prothrombin Time 9.9 SEC (9.30-11.50) Prothromb Time International Ratio 0.9 (0.9-1.1) Activated Partial Thromboplast Time 24 SEC (23-33) C-Reactive Protein, Quantitative < 0.4 mg/dL (0.00-0.90) Triglycerides Level 32 MG/DL (30-150) Cholesterol Level 163 MG/DL (< 200) LDL Cholesterol 52 mg/dL (<100) HDL Cholesterol 111 MG/DL (40-60) H Cholesterol/HDL Ratio 1.5 (3.3-4.4) L Thyroid Stimulating Hormone (TSH) 0.496 uiU/mL (0.358-3.740) REJI SALDANA Apr 20, 2017 15:10
[2017-04-20 16:00] VITALS: BP 134/79
--- NOTE | 2017-04-20 17:43 | Cardiology Report ---
APPROVED REPORT EXAM: Two-dimensional and M-mode echocardiogram with Doppler and color Doppler. INDICATION Left ventricular function M-Mode DIMENSIONS IVSd1.1 (0.7-1.1cm)Left Atrium (MM)2.4 (1.6-4.0cm) LVDd3.5 (3.5-5.6cm)Aortic Root2.8 (2.0-3.7cm) PWd1.0 (0.7-1.1cm)Aortic Cusp Exc.1.8 (1.5-2.0cm) LVDs2.2 (2.5-4.0cm) PWs1.4 cm Technically difficult study due to poor acoustical windows. Normal left ventricular chamber size, systolic function and wall motion. Left ventricular ejection fraction estimated to be 65-70%. Mild left ventricular hypertrophy. No evidence of pericardial or pleural effusion. Right cardiac chamber sizes are within normal limits. Mild left atrial enlargement by 2D. Focal aortic valve sclerosis with adequate cusp excursion. Thickened mitral valve leaflets with normal excursion. Mild mitral annulus and aortic root calcification. Pulmonic valve not well visualized. Normal tricuspid valve structure. IVC is normal in size and collapsible with respiration. A color flow and spectral Doppler study was performed and revealed: No aortic regurgitation. Mild to moderate mitral regurgitation. Mitral diastolic velocities suggest reduced left ventricular relaxation c/w diastolic dysfunction grade 1. No tricuspid regurgitation. Pulmonic regurgitation present.
[2017-04-20] MEDS: cloNIDine 0.2mg Tab ORAL SCH ×2 (17:45→21:48)
--- NOTE | 2017-04-20 19:15 | History & Physical ---
History and Physical History & Physicial Dictated for Int Med-Dr Enrique no. [id number]. CHRISTY RDZ Apr 20, 2017 19:15
[2017-04-20 20:00] VITALS: BP 155/80
[2017-04-21] VITALS (7 sets, daily range): BP systolic 140–180; BP diastolic 70–100
[2017-04-21] MEDS: Solu-MEDROL 125mg Inj IV SCH ×4 (00:29→17:44)
[2017-04-21] MEDS: Labetalol 5mg/ml 20ml vial IV PRN ×2 (00:41→04:19)
[2017-04-21] MEDS: cloNIDine 0.2mg Tab ORAL SCH ×2 (05:41→13:20)
[2017-04-21] MEDS: Metoprolol Succinate XL 25mg tab ORAL SCH (09:34)
[2017-04-21] MEDS: HydrALAZINE 50mg tab ORAL SCH ×2 (09:34→17:44)
[2017-04-21] MEDS: Irbesartan 150mg tablet ORAL SCH ×2 (09:35→21:07)
[2017-04-21] MEDS: Heparin 5000 units/ml inj SUBQ SCH ×2 (09:36→21:08)
--- NOTE | 2017-04-21 13:24 | Internal Med Progress Note ---
Subjective Date of Service: Apr 21, 2017 Physician Name Christy Rdz Attending Physician Tommy Enrique MD Current Medications Medications (Trade) Dose Ordered Sig/Oumar Route PRN Reason Start Time Stop Time Status Last Admin Dose Admin Acetaminophen (Tylenol) 650 mg Q4H PRN ORAL fever (temp>100.5 F)/headache 04/20/17 15:15 05/20/17 15:14 04/20/17 20:46 Albuterol/ Ipratropium (Albuterol/ Ipratropium) 3 ml Q4H PRN HHN Shortness of Breath 04/19/17 22:15 04/24/17 22:14 04/20/17 15:29 Amlodipine Besylate (Norvasc) 10 mg DAILY ORAL 04/20/17 09:00 05/20/17 08:59 04/21/17 09:34 Clonidine HCl (Catapres tab) 0.2 mg Q8HR ORAL 04/20/17 17:00 05/20/17 16:59 04/21/17 05:41 Diltiazem HCl (Cardizem) 10 mg EVERY HOUR PRN IV heart rate more than 120, 04/19/17 22:15 05/19/17 22:14 Enalaprilat (Vasotec) 2.5 mg Q6H PRN IV sbp more than 160 04/19/17 22:15 05/19/17 22:14 04/20/17 12:22 Heparin Sodium (Porcine) (Heparin 5000 units/ml) 5,000 units EVERY 12 HOURS SUBQ 04/20/17 09:00 05/20/17 08:59 04/21/17 09:36 Hydralazine HCl (Apresoline) 50 mg BID ORAL 04/20/17 09:00 05/20/17 08:59 04/21/17 09:34 Hydrochlorothiazide (Hydrodiuril) 25 mg DAILY ORAL 04/20/17 09:00 05/20/17 08:59 04/21/17 09:35 Irbesartan (Avapro) 150 mg Q12HR ORAL 04/20/17 09:00 05/20/17 08:59 04/21/17 09:35 Labetalol HCl (Normodyne) 20 mg Q1H PRN IV sbp more than 170 04/20/17 12:15 05/20/17 12:14 04/21/17 04:19 Methylprednisolone Sodium Succinate (Solu-MEDROL) 60 mg EVERY 6 HOURS IV 04/20/17 00:00 05/20/17 00:00 04/21/17 05:41 Metoprolol Succinate (Toprol XL) 25 mg DAILY ORAL 04/20/17 09:00 05/20/17 08:59 04/21/17 09:34 Nitroglycerin (Ntg) 0.4 mg Every 5 Minutes PRN SL Prn Chest Pain 04/19/17 22:15 05/19/17 22:14 Ondansetron HCl (Zofran) 4 mg Q6H PRN IVP Nausea & Vomiting 04/19/17 22:15 05/19/17 22:14 Pantoprazole (Protonix) 40 mg DAILY ORAL 04/20/17 09:00 05/20/17 08:59 04/21/17 09:33 Polyethylene Glycol (Miralax) 17 gm DAILYPRN PRN ORAL Constipation 04/19/17 22:15 05/19/17 22:14 Temazepam (Restoril) 15 mg HSPRN PRN ORAL Insomnia 04/19/17 22:15 04/26/17 22:14 Allergies: Coded Allergies: No Known Allergies (Verified Allergy, Unknown, 12/19/05) ROS Limited/Unobtainable: No Constitutional: Reports: no symptoms HEENT: Reports: no symptoms Cardiovascular: Reports: no symptoms Respiratory: Reports: shortness of breath Gastrointestinal/Abdominal: Reports: no symptoms Genitourinary: Reports: no symptoms Subjective 67 YO F admitted with shortness of breath. Blood pressure still elevated. Cover for Int Sebastian-Dr Enrique Objective Last Vital Signs Date Time Temp Pulse Resp B/P (MAP) Pulse Ox O2 Delivery O2 Flow Rate FiO2 04/21/17 09:35 154/82 04/21/17 09:34 77 04/21/17 08:10 20 Room Air 21 04/21/17 08:00 97.5 98 General Appearance: alert, mild distress, thin EENT: PERRL/EOMI, normal ENT inspection Neck: non-tender, normal alignment, supple, normal inspection Cardiovascular: normal peripheral pulses, normal rate, regular rhythm, no gallop/murmur, no JVD Respiratory/Chest: respiratory distress, crackles/rales, rhonchi - bilaterally , expiratory wheezing Abdomen: normal bowel sounds, non tender, soft, no organomegaly, no mass Extremities: normal range of motion 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 grossly normal, no motor/sensory deficits Skin: normal pigmentation, warm/dry Microbiology Date/Time Source Procedure Growth Status 04/19/17 21:05 Blood Blood Culture - Preliminary NO GROWTH AFTER 24 HOURS Resulted 04/19/17 20:50 Blood Blood Culture - Preliminary NO GROWTH AFTER 24 HOURS Resulted Intake and Output 04/20/17 04/21/17 19:00 07:00 Intake Total 720 ml 240 ml Balance 720 ml 240 ml Intake Oral 720 ml 240 ml # Voids 3 2 Assessment/Plan Problem List: (1) SOB (shortness of breath) (2) Hypertensive emergency Assessment & Plan: Multiple meds: clonidine, labetalol, norvasc, hydralazine, HCTZ, avapro and toprol CHRISTY RDZ Apr 21, 2017 13:24
--- NOTE | 2017-04-21 15:53 | Pulmonology Progress Note ---
Assessment/Plan Problems: (1) Hypertensive emergency (2) Tobacco use (3) COPD (chronic obstructive pulmonary disease) (4) Hypertension (5) ACS (acute coronary syndrome) Assessment/Plan pb better, claims to have episodes of shakiness. respiratory treatment med/surg if ok with cardio Neuro consult called. Subjective ROS Limited/Unobtainable: No Constitutional: Reports: no symptoms HEENT: Repors: no symptoms Allergies: Coded Allergies: No Known Allergies (Verified Allergy, Unknown, 12/19/05) Objective Last 24 Hour Vital Signs Date Time Temp Pulse Resp B/P (MAP) Pulse Ox O2 Delivery O2 Flow Rate FiO2 04/21/17 13:20 158/88 04/21/17 12:00 98.1 74 18 158/88 99 04/21/17 12:00 72 04/21/17 09:35 154/82 04/21/17 09:34 77 154/82 04/21/17 09:34 154/82 04/21/17 09:34 77 154/82 04/21/17 08:10 72 20 Room Air 21 04/21/17 08:00 97.5 77 18 154/82 98 04/21/17 08:00 73 04/21/17 05:51 74 164/88 04/21/17 05:41 164/88 04/21/17 04:19 79 172/95 04/21/17 04:00 76 04/21/17 04:00 98.1 85 16 180/100 95 Room Air 04/21/17 00:41 82 181/98 04/21/17 00:00 81 04/21/17 00:00 98.1 84 18 162/97 100 Room Air 04/20/17 21:48 158/95 04/20/17 20:37 155/80 04/20/17 20:00 97.5 83 20 155/80 98 04/20/17 20:00 85 04/20/17 19:30 80 16 Room Air 21 04/20/17 17:46 121/69 04/20/17 17:45 121/69 04/20/17 16:00 64 04/20/17 16:00 96.6 82 18 134/79 100 Room Air Intake and Output 04/20/17 04/21/17 19:00 07:00 Intake Total 720 ml 240 ml Balance 720 ml 240 ml Intake Oral 720 ml 240 ml # Voids 3 2 General Appearance: WD/WN HEENT: normocephalic, atraumatic Respiratory/Chest: chest wall non-tender, lungs clear Breasts: no masses Cardiovascular: normal peripheral pulses Abdomen: normal bowel sounds, soft, non tender Genitourinary: normal external genitalia Extremities: no clubbing 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 Microbiology Date/Time Source Procedure Growth Status 04/19/17 21:05 Blood Blood Culture - Preliminary NO GROWTH AFTER 24 HOURS Resulted 04/19/17 20:50 Blood Blood Culture - Preliminary NO GROWTH AFTER 24 HOURS Resulted Current Medications Medications (Trade) Dose Ordered Sig/Oumar Route PRN Reason Start Time Stop Time Status Last Admin Dose Admin Acetaminophen (Tylenol) 650 mg Q4H PRN ORAL fever (temp>100.5 F)/headache 04/20/17 15:15 05/20/17 15:14 04/20/17 20:46 Albuterol/ Ipratropium (Albuterol/ Ipratropium) 3 ml Q4H PRN HHN Shortness of Breath 04/19/17 22:15 04/24/17 22:14 04/20/17 15:29 Amlodipine Besylate (Norvasc) 10 mg DAILY ORAL 04/20/17 09:00 05/20/17 08:59 04/21/17 09:34 Clonidine HCl (Catapres tab) 0.2 mg Q8HR ORAL 04/20/17 17:00 05/20/17 16:59 04/21/17 13:20 Diltiazem HCl (Cardizem) 10 mg EVERY HOUR PRN IV heart rate more than 120, 04/19/17 22:15 05/19/17 22:14 Enalaprilat (Vasotec) 2.5 mg Q6H PRN IV sbp more than 160 04/19/17 22:15 05/19/17 22:14 04/20/17 12:22 Heparin Sodium (Porcine) (Heparin 5000 units/ml) 5,000 units EVERY 12 HOURS SUBQ 04/20/17 09:00 05/20/17 08:59 04/21/17 09:36 Hydralazine HCl (Apresoline) 50 mg BID ORAL 04/20/17 09:00 05/20/17 08:59 04/21/17 09:34 Hydrochlorothiazide (Hydrodiuril) 25 mg DAILY ORAL 04/20/17 09:00 05/20/17 08:59 04/21/17 09:35 Irbesartan (Avapro) 150 mg Q12HR ORAL 04/20/17 09:00 05/20/17 08:59 04/21/17 09:35 Labetalol HCl (Normodyne) 20 mg Q1H PRN IV sbp more than 170 04/20/17 12:15 05/20/17 12:14 04/21/17 04:19 Methylprednisolone Sodium Succinate (Solu-MEDROL) 60 mg EVERY 6 HOURS IV 04/20/17 00:00 05/20/17 00:00 04/21/17 13:20 Metoprolol Succinate (Toprol XL) 25 mg DAILY ORAL 04/20/17 09:00 05/20/17 08:59 04/21/17 09:34 Nitroglycerin (Ntg) 0.4 mg Every 5 Minutes PRN SL Prn Chest Pain 04/19/17 22:15 05/19/17 22:14 Ondansetron HCl (Zofran) 4 mg Q6H PRN IVP Nausea & Vomiting 04/19/17 22:15 05/19/17 22:14 Pantoprazole (Protonix) 40 mg DAILY ORAL 04/20/17 09:00 05/20/17 08:59 04/21/17 09:33 Polyethylene Glycol (Miralax) 17 gm DAILYPRN PRN ORAL Constipation 04/19/17 22:15 05/19/17 22:14 Temazepam (Restoril) 15 mg HSPRN PRN ORAL Insomnia 04/19/17 22:15 04/26/17 22:14 EVANS ELLIS Apr 21, 2017 15:53
--- NOTE | 2017-04-21 17:23 | Cardiology Progress Note ---
Assessment/Plan Assessment/Plan cough perisitetn post uri tobacco use do copd htn cough induced cp all trop neg so far resuem antihypertensive but avoid acei may need ct pumwu in light of tobacco use do will leave to dr coulter [id number] Subjective Cardiovascular: Reports: lightheadedness, Denies: chest pain Respiratory: Denies: cough, shortness of breath Gastrointestinal/Abdominal: Denies: abdominal pain Genitourinary: Denies: burning Subjective got up[ felt funny got shking her legs got herself back to bed Objective Last 24 Hour Vital Signs Date Time Temp Pulse Resp B/P (MAP) Pulse Ox O2 Delivery O2 Flow Rate FiO2 04/21/17 13:20 158/88 04/21/17 12:00 98.1 74 18 158/88 99 04/21/17 12:00 72 04/21/17 09:35 154/82 04/21/17 09:34 77 154/82 04/21/17 09:34 154/82 04/21/17 09:34 77 154/82 04/21/17 08:10 72 20 Room Air 21 04/21/17 08:00 97.5 77 18 154/82 98 04/21/17 08:00 73 04/21/17 05:51 74 164/88 04/21/17 05:41 164/88 04/21/17 04:19 79 172/95 04/21/17 04:00 76 04/21/17 04:00 98.1 85 16 180/100 95 Room Air 04/21/17 00:41 82 181/98 04/21/17 00:00 81 04/21/17 00:00 98.1 84 18 162/97 100 Room Air 04/20/17 21:48 158/95 04/20/17 20:37 155/80 04/20/17 20:00 97.5 83 20 155/80 98 04/20/17 20:00 85 04/20/17 19:30 80 16 Room Air 21 04/20/17 17:46 121/69 04/20/17 17:45 121/69 Intake and Output 04/20/17 04/21/17 19:00 07:00 Intake Total 720 ml 240 ml Balance 720 ml 240 ml Intake Oral 720 ml 240 ml # Voids 3 2 Microbiology Date/Time Source Procedure Growth Status 04/19/17 21:05 Blood Blood Culture - Preliminary NO GROWTH AFTER 24 HOURS Resulted 04/19/17 20:50 Blood Blood Culture - Preliminary NO GROWTH AFTER 24 HOURS Resulted REJI SALDANA Apr 21, 2017 17:23
--- NOTE | 2017-04-21 17:27 | Cardiology Progress Note ---
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 Subjective Subjective got up[ felt funny got shking her legs got herself back to bed Objective Last 24 Hour Vital Signs Date Time Temp Pulse Resp B/P (MAP) Pulse Ox O2 Delivery O2 Flow Rate FiO2 04/21/17 13:20 158/88 04/21/17 12:00 98.1 74 18 158/88 99 04/21/17 12:00 72 04/21/17 09:35 154/82 04/21/17 09:34 77 154/82 04/21/17 09:34 154/82 04/21/17 09:34 77 154/82 04/21/17 08:10 72 20 Room Air 21 04/21/17 08:00 97.5 77 18 154/82 98 04/21/17 08:00 73 04/21/17 05:51 74 164/88 04/21/17 05:41 164/88 04/21/17 04:19 79 172/95 04/21/17 04:00 76 04/21/17 04:00 98.1 85 16 180/100 95 Room Air 04/21/17 00:41 82 181/98 04/21/17 00:00 81 04/21/17 00:00 98.1 84 18 162/97 100 Room Air 04/20/17 21:48 158/95 04/20/17 20:37 155/80 04/20/17 20:00 97.5 83 20 155/80 98 04/20/17 20:00 85 04/20/17 19:30 80 16 Room Air 21 04/20/17 17:46 121/69 04/20/17 17:45 121/69 Intake and Output 04/20/17 04/21/17 19:00 07:00 Intake Total 720 ml 240 ml Balance 720 ml 240 ml Intake Oral 720 ml 240 ml # Voids 3 2 Microbiology Date/Time Source Procedure Growth Status 04/19/17 21:05 Blood Blood Culture - Preliminary NO GROWTH AFTER 24 HOURS Resulted 04/19/17 20:50 Blood Blood Culture - Preliminary NO GROWTH AFTER 24 HOURS Resulted REJI SALDANA Apr 21, 2017 17:27
--- NOTE | 2017-04-21 19:08 | Cardiology Report ---
APPROVED REPORT EKG Measurement Heart [id number] MN 210P51 [id number] Sinus rhythm with 1st degree AV block Possible Left atrial enlargement Left ventricular hypertrophy Prolonged QT Abnormal ECG
[2017-04-22] VITALS: BP 148/74
[2017-04-22] MEDS: Solu-MEDROL 125mg Inj IV SCH ×4 (00:24→18:17)
--- NOTE | 2017-04-22 03:00 | Consultation ---
DATE OF CONSULTATION: 04/20/2017 CARDIOLOGY CONSULTATION CONSULTING PHYSICIAN: Phan Singleton M.D. REFERRING PHYSICIAN: Tommy Enrique M.D. and Patricia Louis M.D. REASON FOR REFERRAL: Chest pain and hypertensive crisis. HISTORY OF PRESENT ILLNESS: This is an middle-aged female, who is known to me from prior evaluation, although has not seen her for some time. She says she has had the flu since the . She came to the emergency room at that time. Probably, the emergency room was very busy, she really did not stay, and continued to take some TheraFlu and [id number] medications. She got better. Initially, she has had some fevers and chills, those resolved. The coughing was productive of green sputum, that resolved now. She has continued coughing of significant degree, but she no longer has any sputum. She would like to bring up the phlegm. Over the past few days, she has had occasional pain in the chest in the sternum and occasional pain around the right rib when she coughs only, not when she walks or when she is not coughing. She does not have any PND or orthopnea, and she does not have dyspnea on exertion. She just had a significant amount of cough that finally caused her to come to the emergency room. In the emergency room, she was noted to have significantly elevated blood pressure with blood pressures in the 226/127 initially when she presented, and therefore, she has been admitted and this consultation has been requested. PAST MEDICAL HISTORY: According to her prior records are positive for history of accelerated hypertension, bradycardia secondary to increased vagal tone, history of hyponatremia, hypokalemia secondary to diuretic use, hyperlipidemia, history of CVA, osteoarthritis, and cervical disc disease. She has had vitamin D deficiency, atypical chest pains, CVA, transient ischemic attacks, osteoarthritis and stroke in the and rotator cuff tear. SOCIAL HISTORY: She smoked until approximately 4 to 6 weeks ago. She socially drinks alcoholic beverages. No drug use. REVIEW OF SYSTEMS: GASTROINTESTINAL: She has had some nausea and some diarrhea. No bloody or black tarry stools or bloody vomiting. GENITOURINARY: She denies. PULMONARY: As mentioned in the history of present illness. CONSTITUTIONAL: Fevers and chills, resolved. MUSCULOSKELETAL: Pain in her legs. NEUROLOGICAL: Negative. PHYSICAL EXAMINATION: GENERAL: Physical examination shows her to be elderly female, in no respiratory distress. She is thin. She has had several bouts of coughing spells while I was examining her. NECK: Supple. LUNGS: There are some crackles on the left side. CARDIAC: Regular rate and rhythm. No heaves or thrills noted. No rubs. ABDOMEN: Soft. Positive bowel sounds. Nontender. EXTREMITIES: There is no clubbing, cyanosis, nor is there any edema. NEUROLOGICAL: She is awake, alert, and responsive. LABORATORY AND DIAGNOSTIC DATA: EKG shows normal sinus with leftward axis. No significant ST-T wave abnormalities. She has incomplete right bundle with T-wave inversions in V1 and V2, relatively normal variant and her blood tests, white count of 5.1, hemoglobin 11.2, and platelet count of 204. Sodium is 139, potassium 3.1, chloride 100, bicarbonate 29, BUN of 15, creatinine 1.0 and glucose of 93. Two sets of cardiac enzymes are completely normal. Her proBNP was only 429. Triglycerides of 32, total cholesterol 163, and LDL of 113. TSH is 0.496. Coagulations, INR of 0.9 and PTT of 24. She did have a chest x-ray in the emergency room that showed borderline cardiomegaly. Lungs and pleural spaces are clear. An echocardiogram, technically difficult, ejection fraction 60% to 65%. No significant valvular disease. The patient's vital signs, her blood pressure is 164/97 at this time to 153/77. ASSESSMENT AND PLAN: 1. Status post upper respiratory tract infection, now with persistent cough. 2. Hypertension. 3. Tobacco use disorder. 4. Cough-induced chest pains. 5. Hypertensive crisis. 6. Chronic obstructive pulmonary disease. Dr. Louis, this patient was seen in cardiac consultation. Her pain is purely at the time of coughing and is not present all the time nor with exertion, and she does have some crackles on the left lung despite the fact that her chest x-ray is not significantly abnormal in light of the fact that she has a smoking history that may need to be further evaluated. She has been on amlodipine and clonidine for her blood pressure, but she is not taking any SALOME inhibitors. She is on Avapro and some beta-blockers, to be continued for the time being, although those need to be adjusted as well because of her coughing. We will follow along. We will repeat the electrocardiogram and a set of cardiac enzymes tomorrow morning. If those are abnormal, may consider further testing, otherwise, we will hold off on any stress testing until her cough improves. Phan Singleton M.D. DR: GAURAV JOB#: [id number] CC:
[2017-04-22 04:00] VITALS: BP 146/77
[2017-04-22 08:00] VITALS: BP 120/76
[2017-04-22] MEDS: Metoprolol Succinate XL 25mg tab ORAL SCH (08:58)
[2017-04-22] MEDS: HydrALAZINE 50mg tab ORAL SCH ×2 (08:58→21:37)
[2017-04-22] MEDS: Irbesartan 150mg tablet ORAL SCH ×2 (08:59→21:38)
[2017-04-22] MEDS: Heparin 5000 units/ml inj SUBQ SCH ×2 (09:00→21:40)
[2017-04-22 12:00] VITALS: BP 148/87
--- NOTE | 2017-04-22 15:45 | History and Physical Report ---
DATE OF ADMISSION: 04/19/2017 CHIEF COMPLAINT: The patient is a 67-year-old female, presents with chief complaint of shortness of breath and cough. HISTORY OF PRESENT ILLNESS: It began on 03/14/2017. The patient began to have cough. Cough is productive of whitish phlegm. The patient also complains of fever. The patient states that last evening, 04/19/2017, she began to experience extreme shortness of breath. The patient presented to [facility]. The patient was admitted for cough and shortness of breath to rule out pneumonia. REVIEW OF SYSTEMS: CONSTITUTIONAL: The patient denies weight loss or weight gain. The patient denies fevers or chills. HEENT: The patient denies ear or throat pain. The patient denies headache. CARDIOVASCULAR: The patient denies palpitations or chest pain. CHEST: The patient complains of cough as above. The patient denies wheezes. ABDOMEN: The patient denies nausea, vomiting, diarrhea, or constipation. GENITOURINARY: The patient denies dysuria or increased frequency of urination. NEUROMUSCULAR: The patient denies seizures or generalized weakness. PAST MEDICAL HISTORY: Significant for hypertension. PAST SURGICAL HISTORY: The patient denies. CURRENT MEDICATIONS: 1. Amlodipine 10 mg one tablet p.o. daily. 2. Clonidine 0.1 mg p.o. q.6 hours p.r.n. 3. Hydralazine 50 mg one tablet p.o. twice daily. 4. Hydrochlorothiazide 25 mg p.o. daily. 5. Avapro 150 mg p.o. q.12 hours. 6. Metoprolol 25 mg p.o. daily. 7. Diovan 80 mg p.o. daily. 8. Zantac 150 mg p.o. twice daily. ALLERGIES: No known drug allergies. SOCIAL HISTORY: The patient is and lives at home with her . The patient admits to tobacco use of one-third pack daily. The patient admits to alcohol use socially. The patient denies drug abuse. PHYSICAL EXAMINATION: VITAL SIGNS: Temperature 97.4, respirations 20, pulse 82, and blood pressure 137/71. GENERAL: The patient is a well-developed, well-nourished, thin-appearing female, in no apparent distress. HEENT: Eyes, pupils equal and responsive to light and accommodation. Extraocular movements are intact. NECK: Supple without lymphadenopathy. CHEST: Diffuse wheezes bilaterally. There are no crackles heard. There is good air movement bilaterally. CARDIOVASCULAR: Regular rate. S1, S2 normal without murmurs, rubs, or gallops. ABDOMEN: Soft, nontender, nondistended. Positive bowel sounds. No evidence of hepatosplenomegaly. Currently, no rebound or guarding noted. EXTREMITIES: Negative for clubbing, cyanosis, or edema. RECTAL: Refused. GENITAL: Refused. NEUROLOGIC: Cranial nerves II through XII are grossly intact without focal deficits. Motor strength is 5/5 bilaterally intact. Deep tendon reflexes are 2+, plantar. LABORATORY STUDIES: WBC 6.5, hemoglobin hematocrit 32.3, and platelets 200,000. Sodium 139, potassium decreased at 3.1, chloride 101, CO2 29, BUN 15, creatinine 1.0, and glucose 93. Chest x-ray was reported as no acute disease. ASSESSMENT: This is a 67-year-old female with: 1. Shortness of breath. 2. Cough. 3. Hypertension. TREATMENT: 1. Shortness of breath/cough. Pulmonary consultation has been obtained with Dr. Patricia Louis. The patient has been placed empirically on albuterol nebulized q.4 h. p.r.n. The patient has also been placed on Solu-Medrol intravenously. We will follow recommendations of Pulmonary. An initial chest x-ray was reported as no acute disease. 2. Hypertension. Continue hydralazine, Avapro, and amlodipine as above. Jonnathan Cedeno M.D. DR: BERNARDINO JOB#: [id number] CC:
[2017-04-22 16:00] VITALS: BP 119/78
[2017-04-22] MEDS ORDERED: Labetalol 5mg/ml 20ml vial IV PRN (16:15)
[2017-04-22] MEDS ORDERED: Albuterol/Ipratropium 3ml neb HHN PRN (16:30)
[2017-04-22] MEDS ORDERED: Nitroglycerin Subl 0.4mg tab SL PRN (16:30)
[2017-04-22] MEDS ORDERED: Miralax 17gm pkt ORAL PRN (16:30)
[2017-04-22] MEDS ORDERED: Enalaprilat 2.5mg/2ml Inj IV PRN (16:30)
--- NOTE | 2017-04-22 16:41 | Internal Med Progress Note ---
Subjective Date of Service: Apr 22, 2017 Physician Name Jonnathan Rdz Attending Physician Tommy Enrique MD Current Medications Medications (Trade) Dose Ordered Sig/Oumar Route PRN Reason Start Time Stop Time Status Last Admin Dose Admin Acetaminophen (Tylenol) 650 mg Q4H PRN ORAL fever (temp>100.5 F)/headache 04/22/17 16:30 05/20/17 16:29 04/22/17 16:26 Albuterol/ Ipratropium (Albuterol/ Ipratropium) 3 ml Q4H PRN HHN Shortness of Breath 04/22/17 16:30 04/24/17 16:29 Amlodipine Besylate (Norvasc) 10 mg DAILY ORAL 04/23/17 09:00 05/20/17 08:59 Clonidine HCl (Catapres Tab) 0.1 mg EVERY 8 HOURS ORAL 04/22/17 22:00 05/21/17 17:29 Enalaprilat (Vasotec) 2.5 mg Q6H PRN IV sbp more than 160 04/22/17 16:30 05/19/17 16:29 Heparin Sodium (Porcine) (Heparin 5000 units/ml) 5,000 units EVERY 12 HOURS SUBQ 04/22/17 21:00 05/20/17 08:59 Hydralazine HCl (Apresoline) 50 mg Q12HR ORAL 04/22/17 21:00 05/22/17 20:59 Hydrochlorothiazide (Hydrodiuril) 25 mg DAILY ORAL 04/23/17 09:00 05/20/17 08:59 Irbesartan (Avapro) 150 mg Q12HR ORAL 04/22/17 21:00 05/20/17 08:59 Methylprednisolone Sodium Succinate (Solu-MEDROL) 60 mg EVERY 6 HOURS IV 04/22/17 18:00 05/20/17 00:00 Metoprolol Succinate (Toprol XL) 25 mg DAILY ORAL 04/23/17 09:00 05/20/17 08:59 Nitroglycerin (Ntg) 0.4 mg Every 5 Minutes PRN SL Prn Chest Pain 04/22/17 16:30 05/19/17 16:29 Ondansetron HCl (Zofran) 4 mg Q6H PRN IVP Nausea & Vomiting 04/22/17 16:30 05/19/17 16:29 Pantoprazole (Protonix) 40 mg ACBREAKFAST ORAL 04/23/17 06:30 05/23/17 06:29 Polyethylene Glycol (Miralax) 17 gm DAILYPRN PRN ORAL Constipation 04/22/17 16:30 05/19/17 16:29 Temazepam (Restoril) 15 mg HSPRN PRN ORAL Insomnia 04/22/17 21:00 04/26/17 20:59 Allergies: Coded Allergies: No Known Allergies (Verified Allergy, Unknown, 12/19/05) ROS Limited/Unobtainable: No Constitutional: Reports: no symptoms HEENT: Reports: no symptoms Cardiovascular: Reports: no symptoms Respiratory: Reports: cough Gastrointestinal/Abdominal: Reports: no symptoms Genitourinary: Reports: no symptoms Neurologic/Psychiatric: Reports: no symptoms Subjective 67 YO F admitted with shortness of breath. Blood pressure still elevated. Cover for Int Med-Dr Enrique Objective Last Vital Signs Date Time Temp Pulse Resp B/P (MAP) Pulse Ox O2 Delivery O2 Flow Rate FiO2 04/22/17 16:00 98.9 68 18 119/78 100 Room Air 04/22/17 06:40 21 Laboratory Tests Test 04/21/17 21:50 Troponin I 0.000 ng/mL (0.000-0.056) Microbiology Date/Time Source Procedure Growth Status 04/19/17 21:05 Blood Blood Culture - Preliminary NO GROWTH AFTER 48 HOURS Resulted 04/19/17 20:50 Blood Blood Culture - Preliminary NO GROWTH AFTER 48 HOURS Resulted Intake and Output 04/21/17 04/22/17 19:00 07:00 Intake Total 960 ml Output Total 800 ml Balance 960 ml -800 ml Intake Oral 960 ml Output Urine Total 800 ml # Voids 2 # Bowel Movements 1 Objective General Appearance: alert, mild distress, thin EENT: PERRL/EOMI, normal ENT inspection Neck: non-tender, normal alignment, supple, normal inspection Cardiovascular: normal peripheral pulses, normal rate, regular rhythm, no gallop/murmur, no JVD Respiratory/Chest: respiratory distress, crackles/rales, rhonchi - bilaterally , expiratory wheezing Abdomen: normal bowel sounds, non tender, soft, no organomegaly, no mass Extremities: normal range of motion 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 Multiple meds: clonidine, labetalol, norvasc, hydralazine, HCTZ, avapro and toprol Status: progressing JONNATHAN RDZ Apr 22, 2017 16:41
[2017-04-22] MEDS ORDERED: dilTIAZem HCl 25mg/5ml Inj IV PRN (17:00)
--- NOTE | 2017-04-22 17:56 | Pulmonology Progress Note ---
Assessment/Plan Problems: (1) Hypertensive emergency (2) Tobacco use (3) COPD (chronic obstructive pulmonary disease) (4) Hypertension (5) ACS (acute coronary syndrome) Assessment/Plan pb better, respiratory treatment med/surg if ok with cardio Neuro consult appreciated home with Subjective ROS Limited/Unobtainable: No Constitutional: Reports: no symptoms HEENT: Repors: no symptoms Respiratory: Reports: no symptoms Allergies: Coded Allergies: No Known Allergies (Verified Allergy, Unknown, 12/19/05) Objective Last 24 Hour Vital Signs Date Time Temp Pulse Resp B/P (MAP) Pulse Ox O2 Delivery O2 Flow Rate FiO2 04/22/17 17:00 64 67 72 04/22/17 16:00 98.9 68 18 119/78 100 Room Air 04/22/17 15:08 148/87 04/22/17 12:00 97.7 73 18 148/87 100 Room Air 04/22/17 09:00 87 72 80 04/22/17 08:59 120/76 04/22/17 08:59 72 120/76 04/22/17 08:58 72 120/76 04/22/17 08:58 120/76 04/22/17 08:00 98.2 72 18 120/76 100 Room Air 04/22/17 08:00 70 04/22/17 06:40 74 18 Room Air 21 04/22/17 06:28 145/64 04/22/17 04:00 98.7 74 20 146/77 97 Room Air 04/22/17 04:00 67 04/22/17 01:00 88 77 89 04/22/17 00:00 69 04/22/17 00:00 98.2 77 19 148/74 97 Room Air 04/21/17 22:25 144/88 04/21/17 21:07 151/89 04/21/17 20:24 96.8 68 19 151/89 97 Room Air 04/21/17 20:24 72 18 Room Air 21 04/21/17 20:00 72 04/21/17 18:30 73 71 79 Intake and Output 04/21/17 04/22/17 19:00 07:00 Intake Total 960 ml Output Total 800 ml Balance 960 ml -800 ml Intake Oral 960 ml Output Urine Total 800 ml # Voids 2 # Bowel Movements 1 General Appearance: WD/WN HEENT: normocephalic, atraumatic Respiratory/Chest: chest wall non-tender, lungs clear Breasts: no masses Cardiovascular: normal peripheral pulses Abdomen: normal bowel sounds, soft, non tender Genitourinary: normal external genitalia 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 Lymphatic: no neck adenopathy, no groin adenopathy Microbiology Date/Time Source Procedure Growth Status 04/19/17 21:05 Blood Blood Culture - Preliminary NO GROWTH AFTER 48 HOURS Resulted 04/19/17 20:50 Blood Blood Culture - Preliminary NO GROWTH AFTER 48 HOURS Resulted Laboratory Tests 04/21/17 21:50: Troponin I 0.000 Current Medications Medications (Trade) Dose Ordered Sig/Oumar Route PRN Reason Start Time Stop Time Status Last Admin Dose Admin Acetaminophen (Tylenol) 650 mg Q4H PRN ORAL fever (temp>100.5 F)/headache 04/22/17 16:30 05/20/17 16:29 04/22/17 16:26 Albuterol/ Ipratropium (Albuterol/ Ipratropium) 3 ml Q4H PRN HHN Shortness of Breath 04/22/17 16:30 04/24/17 16:29 Amlodipine Besylate (Norvasc) 10 mg DAILY ORAL 04/23/17 09:00 05/20/17 08:59 Clonidine HCl (Catapres Tab) 0.1 mg EVERY 8 HOURS ORAL 04/22/17 22:00 05/21/17 17:29 Enalaprilat (Vasotec) 2.5 mg Q6H PRN IV sbp more than 160 04/22/17 16:30 05/19/17 16:29 Heparin Sodium (Porcine) (Heparin 5000 units/ml) 5,000 units EVERY 12 HOURS SUBQ 04/22/17 21:00 05/20/17 08:59 Hydralazine HCl (Apresoline) 50 mg Q12HR ORAL 04/22/17 21:00 05/22/17 20:59 Hydrochlorothiazide (Hydrodiuril) 25 mg DAILY ORAL 04/23/17 09:00 05/20/17 08:59 Irbesartan (Avapro) 150 mg Q12HR ORAL 04/22/17 21:00 05/20/17 08:59 Methylprednisolone Sodium Succinate (Solu-MEDROL) 60 mg EVERY 6 HOURS IV 04/22/17 18:00 05/20/17 00:00 Metoprolol Succinate (Toprol XL) 25 mg DAILY ORAL 04/23/17 09:00 05/20/17 08:59 Nitroglycerin (Ntg) 0.4 mg Every 5 Minutes PRN SL Prn Chest Pain 04/22/17 16:30 05/19/17 16:29 Ondansetron HCl (Zofran) 4 mg Q6H PRN IVP Nausea & Vomiting 04/22/17 16:30 05/19/17 16:29 Pantoprazole (Protonix) 40 mg ACBREAKFAST ORAL 04/23/17 06:30 05/23/17 06:29 Polyethylene Glycol (Miralax) 17 gm DAILYPRN PRN ORAL Constipation 04/22/17 16:30 05/19/17 16:29 Temazepam (Restoril) 15 mg HSPRN PRN ORAL Insomnia 04/22/17 21:00 04/26/17 20:59 EVANS ELLIS Apr 22, 2017 17:56
[2017-04-22 20:00] VITALS: BP 124/73
[2017-04-23] VITALS: BP 114/75
[2017-04-23] MEDS: Solu-MEDROL 125mg Inj IV SCH ×2 (00:17→06:53)
[2017-04-23 04:00] VITALS: BP 122/68
[2017-04-23 08:11] VITALS: BP 119/79
--- NOTE | 2017-04-23 08:28 | Pulmonology Progress Note ---
Assessment/Plan Assessment/Plan ASSESSMENT HTN emergency Chest pain, cough induced COPD ATN ( likely due to steroids, started due to bronchospasm) tobacco use CVA Orthostatic changes hypokalemia PLAN OF CARE [facility] floor BP management with multiple regimen of anti-HTN, avoid SALOME due to cough BP currently stable O2 HN prn CXR with Borderline cardiomegaly. 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 Cardio follows, serial troponin negative ECG no acute changes~ ECHO with pEF 65-70% chest pain likely cough induced as per cardio DVT GI prophylaxis orthostatic VS positive replace K, check K and Mg in am 1 L NS ( for orthostatic changes and elev creat) check BMP in am, rise in creat likely due to steroids neuro eval pending ( shaking on standing) PT eval and Rx fall precautions dc plan for tomorrow case discussed and evaluated by supervising physician Subjective Allergies: Coded Allergies: No Known Allergies (Verified Allergy, Unknown, 12/19/05) Subjective denies chest pain, SOB shaking when walking orthostatic VS positive creat up to 1.5 K low cough significantly decreased Objective Last 24 Hour Vital Signs Date Time Temp Pulse Resp B/P (MAP) Pulse Ox O2 Delivery O2 Flow Rate FiO2 04/23/17 08:11 97.7 76 21 119/79 99 Room Air 04/23/17 07:38 75 18 Room Air 04/23/17 06:52 122/68 04/23/17 04:00 98 96 75 04/23/17 04:00 97.1 72 20 122/68 72 04/23/17 01:00 98 96 90 04/23/17 00:00 97.5 71 21 114/75 99 04/22/17 21:39 124/73 04/22/17 21:38 124/73 04/22/17 21:37 124/73 04/22/17 20:28 68 16 99 Room Air 04/22/17 20:20 68 18 98 Room Air 04/22/17 20:00 97.9 65 21 124/73 98 04/22/17 19:04 68 18 Room Air 21 04/22/17 17:00 64 67 72 04/22/17 16:00 98.9 68 18 119/78 100 Room Air 04/22/17 15:08 148/87 04/22/17 12:00 97.7 73 18 148/87 100 Room Air 04/22/17 09:00 87 72 80 04/22/17 08:59 120/76 04/22/17 08:59 72 120/76 04/22/17 08:58 72 120/76 04/22/17 08:58 120/76 Intake and Output 04/22/17 04/23/17 19:00 07:00 Intake Total 840 ml Output Total 800 ml Balance 40 ml Intake Oral 840 ml Output Urine Total 800 ml # Voids 1 3 General Appearance: no acute distress HEENT: normocephalic, atraumatic, anicteric, mucous membranes moist Respiratory/Chest: lungs clear, no respiratory distress, no accessory muscle use Cardiovascular: normal peripheral pulses, normal rate, regular rhythm, no JVD Abdomen: normal bowel sounds, soft, non tender, non distended Extremities: no edema, pedal pulses normal Neurologic/Psychiatric: alert, oriented x 3, responsive Musculoskeletal: normal muscle bulk Current Medications Medications (Trade) Dose Ordered Sig/Oumar Route PRN Reason Start Time Stop Time Status Last Admin Dose Admin Acetaminophen (Tylenol) 650 mg Q4H PRN ORAL fever (temp>100.5 F)/headache 04/22/17 16:30 05/20/17 16:29 04/22/17 16:26 Albuterol/ Ipratropium (Albuterol/ Ipratropium) 3 ml Q4H PRN HHN Shortness of Breath 04/22/17 16:30 04/24/17 16:29 04/22/17 20:20 Amlodipine Besylate (Norvasc) 10 mg DAILY ORAL 04/23/17 09:00 05/20/17 08:59 Clonidine HCl (Catapres Tab) 0.1 mg EVERY 8 HOURS ORAL 04/22/17 22:00 05/21/17 17:29 04/23/17 06:52 Enalaprilat (Vasotec) 2.5 mg Q6H PRN IV sbp more than 160 04/22/17 16:30 05/19/17 16:29 Heparin Sodium (Porcine) (Heparin 5000 units/ml) 5,000 units EVERY 12 HOURS SUBQ 04/22/17 21:00 05/20/17 08:59 04/22/17 21:40 Hydralazine HCl (Apresoline) 50 mg Q12HR ORAL 04/22/17 21:00 05/22/17 20:59 04/22/17 21:37 Hydrochlorothiazide (Hydrodiuril) 25 mg DAILY ORAL 04/23/17 09:00 05/20/17 08:59 Irbesartan (Avapro) 150 mg Q12HR ORAL 04/22/17 21:00 05/20/17 08:59 04/22/17 21:38 Methylprednisolone Sodium Succinate (Solu-MEDROL) 60 mg EVERY 6 HOURS IV 04/22/17 18:00 05/20/17 00:00 04/23/17 06:53 Metoprolol Succinate (Toprol XL) 25 mg DAILY ORAL 04/23/17 09:00 05/20/17 08:59 Nitroglycerin (Ntg) 0.4 mg Every 5 Minutes PRN SL Prn Chest Pain 04/22/17 16:30 05/19/17 16:29 Ondansetron HCl (Zofran) 4 mg Q6H PRN IVP Nausea & Vomiting 04/22/17 16:30 05/19/17 16:29 Pantoprazole (Protonix) 40 mg ACBREAKFAST ORAL 04/23/17 06:30 05/23/17 06:29 04/23/17 06:52 Polyethylene Glycol (Miralax) 17 gm DAILYPRN PRN ORAL Constipation 04/22/17 16:30 05/19/17 16:29 Temazepam (Restoril) 15 mg HSPRN PRN ORAL Insomnia 04/22/17 21:00 04/26/17 20:59 Isela Crawford NP ([facility]) Apr 23, 2017 08:28
[2017-04-23] MEDS: HydrALAZINE 50mg tab ORAL SCH ×2 (08:33→21:00)
[2017-04-23] MEDS: Metoprolol Succinate XL 25mg tab ORAL SCH (08:34)
[2017-04-23] MEDS: Irbesartan 150mg tablet ORAL SCH ×2 (08:34→21:00)
[2017-04-23 08:49] LABS: BASOPHILS % (AUTO) 0.4 % (0.0-2.0); HEMATOCRIT 35.8 % (37.0-47.0); HEMOGLOBIN 12.6 G/DL (12.0-16.0); LYMPHOCYTES % (AUTO) 10.4 % (20.0-45.0); MEAN CORPUSCULAR VOLUME 97 FL (80-99); MONOCYTES % (AUTO) 7.5 % (1.0-10.0); NEUTROPHILS % (AUTO) 81.7 % (45.0-75.0); PLATELET COUNT 236 K/UL (150-450); RED BLOOD COUNT 3.69 M/UL (4.20-5.40); WHITE BLOOD COUNT 7.7 K/UL (4.8-10.8)
[2017-04-23] MEDS: Heparin 5000 units/ml inj SUBQ SCH ×2 (08:58→22:46)
[2017-04-23 09:02] LABS: ANION GAP 11 mmol/L (5-15); BLOOD UREA NITROGEN 32 mg/dL (7-18); CALCIUM 8.6 MG/DL (8.5-10.1); CARBON DIOXIDE 27 MMOL/L (21-32); CHLORIDE 92 MMOL/L (98-107); CREATININE 1.5 MG/DL (0.55-1.30); SODIUM 131 MMOL/L (136-145)
[2017-04-23 09:09] LABS: POTASSIUM 2.7 MMOL/L (3.5-5.1)
[2017-04-23] MEDS ORDERED: Guaifenesin/DM 10ml syrup ORAL PRN (09:45)
[2017-04-23 12:15] VITALS: BP 110/61
--- NOTE | 2017-04-23 12:47 | Neurology Progress Note ---
Interim History Interim History ROS Limited/Unobtainable: No Objective Physical Exam Last Vital Signs Date Time Temp Pulse Resp B/P (MAP) Pulse Ox O2 Delivery O2 Flow Rate FiO2 04/23/17 12:15 98.3 71 22 110/61 99 Room Air 04/23/17 07:38 21 Laboratory Tests Test 04/23/17 08:04 White Blood Count 7.7 K/UL (4.8-10.8) Red Blood Count 3.69 M/UL (4.20-5.40) L Hemoglobin 12.6 G/DL (12.0-16.0) Hematocrit 35.8 % (37.0-47.0) L Mean Corpuscular Volume 97 FL (80-99) Mean Corpuscular Hemoglobin 34.2 PG (27.0-31.0) H Mean Corpuscular Hemoglobin Concent 35.3 G/DL (32.0-36.0) Red Cell Distribution Width 11.0 % (11.6-14.8) L Platelet Count 236 K/UL (150-450) Mean Platelet Volume 7.6 FL (6.5-10.1) Neutrophils (%) (Auto) 81.7 % (45.0-75.0) H Lymphocytes (%) (Auto) 10.4 % (20.0-45.0) L Monocytes (%) (Auto) 7.5 % (1.0-10.0) Eosinophils (%) (Auto) 0.0 % (0.0-3.0) Basophils (%) (Auto) 0.4 % (0.0-2.0) Sodium Level 131 MMOL/L (136-145) L Potassium Level 2.7 MMOL/L (3.5-5.1) *L Chloride Level 92 MMOL/L (98-107) L Carbon Dioxide Level 27 MMOL/L (21-32) Anion Gap 11 mmol/L (5-15) Blood Urea Nitrogen 32 mg/dL (7-18) H Creatinine 1.5 MG/DL (0.55-1.30) H Estimat Glomerular Filtration Rate 41.7 mL/min (>60) Glucose Level 156 MG/DL (74-106) H Calcium Level 8.6 MG/DL (8.5-10.1) Impression/Recommendations Problems: (1) Unspecified abnormalities of gait and mobility (2) Hypertensive emergency (3) COPD (chronic obstructive pulmonary disease) Status: unchanged Recommendations #[id number] ANTONI GRIMES Apr 23, 2017 12:47
[2017-04-23] MEDS: Aspirin EC 81mg tab ORAL SCH (14:02)
[2017-04-23 16:00] VITALS: BP 112/64
--- NOTE | 2017-04-23 16:12 | Diagnostic Imaging Report ---
Indication: Altered mental status Technique: The head was imaged in a 1.5 Zarina magnet. Sequences obtained include sagittal and axial T1 FLAIR, axial T2 fast spin echo with fat saturation, axial T2 FLAIR, diffusion and ADC map. Comparison: None Findings: There is mild prominence of the sulci, ventricles, and basal cisterns consistent with atrophy. Mild, nonspecific T2 hyperintensity noted within white matter. This may be due to chronic small vessel disease. There is no restricted diffusion. Beard-white differentiation is normal. There is no mass effect, midline shift, edema, or hemorrhage. There are no abnormal extra-axial or intra-axial fluid collections. The corpus callosum and sella are unremarkable. The brainstem and cerebellum are unremarkable. Bone marrow signal within the visualized osseous structures appears age appropriate and unremarkable otherwise. Impression: No acute intracranial findings. Mild atrophy and evidence of chronic small vessel disease involving white matter tracts.
--- NOTE | 2017-04-23 19:26 | Internal Med Progress Note ---
Subjective Date of Service: Apr 23, 2017 Physician Name CedenoChristy caro Attending Physician Tommy Enrique MD Current Medications Medications (Trade) Dose Ordered Sig/Oumar Route PRN Reason Start Time Stop Time Status Last Admin Dose Admin Acetaminophen (Tylenol) 650 mg Q4H PRN ORAL fever (temp>100.5 F)/headache 04/22/17 16:30 05/20/17 16:29 04/22/17 16:26 Albuterol/ Ipratropium (Albuterol/ Ipratropium) 3 ml Q4H PRN HHN Shortness of Breath 04/22/17 16:30 04/24/17 16:29 04/22/17 20:20 Amlodipine Besylate (Norvasc) 10 mg DAILY ORAL 04/23/17 09:00 05/20/17 08:59 04/23/17 08:33 Aspirin (Ecotrin) 81 mg DAILY ORAL 04/23/17 14:00 05/23/17 13:59 04/23/17 14:02 Clonidine HCl (Catapres Tab) 0.1 mg EVERY 8 HOURS ORAL 04/22/17 22:00 05/21/17 17:29 04/23/17 14:02 Enalaprilat (Vasotec) 2.5 mg Q6H PRN IV sbp more than 160 04/22/17 16:30 05/19/17 16:29 Gabapentin (Neurontin) 100 mg THREE TIMES A DAY ORAL 04/23/17 14:00 05/23/17 13:59 04/23/17 17:31 Guaifenesin/ Dextromethorphan (Robitussin DM Syrup) 10 ml Q4H PRN ORAL For Cough 04/23/17 09:45 05/23/17 09:44 Heparin Sodium (Porcine) (Heparin 5000 units/ml) 5,000 units EVERY 12 HOURS SUBQ 04/22/17 21:00 05/20/17 08:59 04/23/17 08:58 Hydralazine HCl (Apresoline) 50 mg Q12HR ORAL 04/22/17 21:00 05/22/17 20:59 04/23/17 08:33 Hydrochlorothiazide (Hydrodiuril) 25 mg DAILY ORAL 04/23/17 09:00 05/20/17 08:59 04/23/17 08:33 Irbesartan (Avapro) 150 mg Q12HR ORAL 04/22/17 21:00 05/20/17 08:59 04/23/17 08:34 Metoprolol Succinate (Toprol XL) 25 mg DAILY ORAL 04/23/17 09:00 05/20/17 08:59 04/23/17 08:34 Nitroglycerin (Ntg) 0.4 mg Every 5 Minutes PRN SL Prn Chest Pain 04/22/17 16:30 05/19/17 16:29 Ondansetron HCl (Zofran) 4 mg Q6H PRN IVP Nausea & Vomiting 04/22/17 16:30 05/19/17 16:29 Pantoprazole (Protonix) 40 mg ACBREAKFAST ORAL 04/23/17 06:30 05/23/17 06:29 04/23/17 06:52 Polyethylene Glycol (Miralax) 17 gm DAILYPRN PRN ORAL Constipation 04/22/17 16:30 05/19/17 16:29 Sodium Chloride 1,000 ml @ 75 mls/hr [id number] ONCE IV 04/23/17 11:00 04/24/17 00:19 04/23/17 11:21 Temazepam (Restoril) 15 mg HSPRN PRN ORAL Insomnia 04/22/17 21:00 04/26/17 20:59 Allergies: Coded Allergies: No Known Allergies (Verified Allergy, Unknown, 12/19/05) ROS Limited/Unobtainable: No Constitutional: Reports: no symptoms HEENT: Reports: no symptoms Cardiovascular: Reports: no symptoms Respiratory: Reports: shortness of breath Gastrointestinal/Abdominal: Reports: no symptoms Genitourinary: Reports: no symptoms Neurologic/Psychiatric: Reports: no symptoms Subjective 67 YO F admitted with shortness of breath. Blood pressure still elevated. Cover for Int Sebastian-Dr Enrique Objective Last Vital Signs Date Time Temp Pulse Resp B/P (MAP) Pulse Ox O2 Delivery O2 Flow Rate FiO2 04/23/17 17:00 61 63 65 04/23/17 16:00 97.6 20 112/64 100 04/23/17 12:15 Room Air 04/23/17 07:38 21 Laboratory Tests Test 04/23/17 08:04 04/23/17 15:10 White Blood Count 7.7 K/UL (4.8-10.8) Red Blood Count 3.69 M/UL (4.20-5.40) L Hemoglobin 12.6 G/DL (12.0-16.0) Hematocrit 35.8 % (37.0-47.0) L Mean Corpuscular Volume 97 FL (80-99) Mean Corpuscular Hemoglobin 34.2 PG (27.0-31.0) H Mean Corpuscular Hemoglobin Concent 35.3 G/DL (32.0-36.0) Red Cell Distribution Width 11.0 % (11.6-14.8) L Platelet Count 236 K/UL (150-450) Mean Platelet Volume 7.6 FL (6.5-10.1) Neutrophils (%) (Auto) 81.7 % (45.0-75.0) H Lymphocytes (%) (Auto) 10.4 % (20.0-45.0) L Monocytes (%) (Auto) 7.5 % (1.0-10.0) Eosinophils (%) (Auto) 0.0 % (0.0-3.0) Basophils (%) (Auto) 0.4 % (0.0-2.0) Sodium Level 131 MMOL/L (136-145) L Potassium Level 2.7 MMOL/L (3.5-5.1) *L Chloride Level 92 MMOL/L (98-107) L Carbon Dioxide Level 27 MMOL/L (21-32) Anion Gap 11 mmol/L (5-15) Blood Urea Nitrogen 32 mg/dL (7-18) H Creatinine 1.5 MG/DL (0.55-1.30) H Estimat Glomerular Filtration Rate 41.7 mL/min (>60) Glucose Level 156 MG/DL (74-106) H Calcium Level 8.6 MG/DL (8.5-10.1) Erythrocyte Sedimentation Rate 30 MM/HR (0-30) Total Protein (PEP) Pending Albumin (PEP) Pending Globulin (PEP) Pending Albumin/Globulin Ratio Pending Ehbyu-[id number] Pending Nwjam-4-Ykhzfuedt Pending Beta Globulins Pending Beta Gamma Globulin Pending PEP Abnormal Protein Bands Pending Protein Electrophoresis Interpret Pending Vitamin B12 Level 652 PG/ML (193-986) Methylmalonic Acid Pending Anti-Nuclear Antibody Screen Pending Intake and Output 04/22/17 04/23/17 19:00 07:00 Intake Total 840 ml Output Total 800 ml Balance 40 ml Intake Oral 840 ml Output Urine Total 800 ml # Voids 1 3 Objective General Appearance: alert, mild distress, thin EENT: PERRL/EOMI, normal ENT inspection Neck: non-tender, normal alignment, supple, normal inspection Cardiovascular: normal peripheral pulses, normal rate, regular rhythm, no gallop/murmur, no JVD Respiratory/Chest: respiratory distress, crackles/rales, rhonchi - bilaterally , expiratory wheezing Abdomen: normal bowel sounds, non tender, soft, no organomegaly, no mass Extremities: normal range of motion 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 Multiple meds: clonidine, labetalol, norvasc, hydralazine, HCTZ, avapro and toprol Status: progressing CHRISTY CEDENO Apr 23, 2017 19:26
[2017-04-23 20:00] VITALS: BP 105/58
--- NOTE | 2017-04-23 21:45 | Consultation ---
DATE OF CONSULTATION: 04/23/2017 NEUROLOGICAL CONSULTATION CONSULTING PHYSICIAN: Mac Rodríguez M.D. REQUESTING PHYSICIAN: Tommy Enrique M.D. HISTORY OF PRESENT ILLNESS: The patient is a 67-year-old female, seen in neurological consultation to evaluate abnormal gait, dizziness. The patient informed me that in February of last year she had several days of flu, gradually improved but then a couple days prior to current admission she started to have again increasing congestion, cough, difficulty breathing, cough, chest tightness in her chest. She was admitted to emergency room where blood pressure was 226/127, heart rate of 84, temperature 97.7. Her EKG normal sinus rhythm. Her initial chest x-ray borderline cardiomegaly, no acute process. A 2D echocardiogram, ejection fraction 65% to 70%. Following admission, the patient complained of dizziness usually in upright position, difficulty ambulation, fear to fall. This was observed by nursing staff who described that she was trying to get up. She has some shaking in her both lower extremities, being required assistance with ambulation. The patient now informs me that actually symptoms started about a year ago when she started developed a throbbing sensation in her both lower extremities, this increased in January of last year. She was sent for neurology assessment. EMG and nerve conduction studies were obtained. Vascular study both lower extremities was obtained and this was reported to her as nonconclusive. She was given trial off Neurontin and felt some improvement, but she ran out of medications. PAST MEDICAL HISTORY: History of hypertension, COPD. Following current admission, lab work was obtained, this revealed mild anemia, hemoglobin 11.3 and hematocrit 32.3. Her chemistry panel with normal troponins, normal liver function. Electrolyte panel was unremarkable except potassium 3.1. BNP of 429. Normal TSH. Elevated BUN of 32 and creatinine 1.5. The patient denies previous strokes, TIA, or seizures. She was a smoker until last month. No alcohol or drug abuse. MEDICATIONS: Treatment prior to admission included aspirin, amlodipine, hydralazine, clonidine, hydrochlorothiazide, , metoprolol, ranitidine, and Diovan. ALLERGIES: None reported. SOCIAL HISTORY: Lives with her family, smoker in the past. No alcohol or drug abuse. FAMILY HISTORY: Noncontributory. REVIEW OF SYMPTOMS: The patient is anxious concerning that she has "neuropathies" She is concerned with gait instability. Now new onset of positional dizziness, coughing, sneezing, shortness of breath but no chest pain. She has fear of fall. PHYSICAL EXAMINATION: GENERAL: A well-developed and well-nourished elderly female, not in acute distress. VITAL SIGNS: Stable. Blood pressure 110/61, temperature 98.3. HEENT: Head is normocephalic. There is no evidence of trauma. Eyes, ears, and throat are clear. NECK: Supple. No meningeal signs. MUSCULOSKELETAL: Unremarkable. There is no deformities. Peripheral pulses 1+ symmetric. MENTAL STATUS: She is alert and oriented x3. She is quite poor historian. This is contradictory information, the patient was cooperative and follow commands. CRANIAL NERVE II: Pupils both responding to light and accommodation. Extraocular movement intact. No nystagmus. CRANIAL NERVES V: Normal corneal responses. CRANIAL NERVES VII: No facial asymmetry. CRANIAL NERVES VIII: Grossly normal hearing. CRANIAL NERVES IX THROUGH XII: Tongue is in midline. Symmetric palate elevation. MOTOR EXAMINATION: Normal muscle tone. Strength 5/5 in all extremities. No involuntary movement. No tremors. No rigidity. Deep tendon reflexes depressed bilaterally both biceps, triceps, knee and ankle jerks. Plantar responses flexor. No pathological responses noted. SENSORY EXAMINATION: Normal to pin stimulation both upper and lower extremities. The patient was able to stand up on her own. She has slightly wide-based stance, walking slowly, somewhat wobbly although patient indicated that she has fear of falling. IMPRESSION: 1. Abnormal slightly ataxic gait, rule out cerebellar lesion, rule out posterior column disease. 2. Normal nonfocal neurological examination except abnormality of gait. 3. Anxiety. 4. status post hypertensive crisis. 5. Recent viral syndrome. RECOMMENDATION: 1. Get an MRI of the brain, noncontrast. 2. B12, methylmalonic acid, JERMAINE, sedimentation rate. 3. PT/OT and mobility protocol. 4. Trial of Neurontin starting 100 mg t.i.d. to be titrated for presumed sensory neuropathy. Thank you for allowing me to see this interesting patient in neurological consultation. Mac Rodríguez M.D. DR: Priscilla JOB#: [id number] CC:
[2017-04-24] VITALS: BP 116/73
[2017-04-24 04:00] VITALS: BP 121/73
[2017-04-24 07:52] LABS: BASOPHILS % (AUTO) 0.8 % (0.0-2.0); EOSINOPHILS % (AUTO) 0.1 % (0.0-3.0); HEMATOCRIT 34.9 % (37.0-47.0); HEMOGLOBIN 12.5 G/DL (12.0-16.0); LYMPHOCYTES % (AUTO) 21.4 % (20.0-45.0); MEAN CORPUSCULAR VOLUME 96 FL (80-99); MONOCYTES % (AUTO) 11.6 % (1.0-10.0); NEUTROPHILS % (AUTO) 66.1 % (45.0-75.0); PLATELET COUNT 225 K/UL (150-450); RED BLOOD COUNT 3.62 M/UL (4.20-5.40); WHITE BLOOD COUNT 8.9 K/UL (4.8-10.8)
[2017-04-24 08:00] VITALS: BP 112/67
[2017-04-24 08:13] LABS: ANION GAP 11 mmol/L (5-15); BLOOD UREA NITROGEN 32 mg/dL (7-18); CALCIUM 8.5 MG/DL (8.5-10.1); CARBON DIOXIDE 24 MMOL/L (21-32); CHLORIDE 97 MMOL/L (98-107); CREATININE 1.3 MG/DL (0.55-1.30); POTASSIUM 3.3 MMOL/L (3.5-5.1); SODIUM 131 MMOL/L (136-145)
--- NOTE | 2017-04-24 08:56 | Pulmonology Progress Note ---
Assessment/Plan Assessment/Plan ASSESSMENT HTN emergency Chest pain, cough induced COPD ATN ( likely due to steroids, started due to bronchospasm)-resolved Abnormal slightly ataxic gait, rule out cerebellar lesion, rule out posterior column disease-negative tobacco use CVA Orthostatic changes hypokalemia presumed sensory neuropathy PLAN OF CARE [facility] floor BP management with multiple regimen of anti-HTN, stable now avoid SALOME due to cough BP currently stable wth multiple regimen of anti HTN O2 HHN prn CXR with Borderline cardiomegaly. 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 Cardio follows, serial troponin negative ECG no acute changes~ ECHO with pEF 65-70% chest pain likely cough induced as per cardio DVT GI prophylaxis orthostatic VS positive replaced K, check K and Mg in am s/p 1 L NS ( for orthostatic changes and elev creat) creat down, additional K replacement neuro eval appreciated MRI brain negative started on neurontin as pr neuro recs for presumed sensory neuropathy PT eval and Rx fall precautions dc today with servcies for PT ( [facility]) case discussed and evaluated by supervising physician Subjective Allergies: Coded Allergies: No Known Allergies (Verified Allergy, Unknown, 12/19/05) Subjective denies chest pain, SOB orthostatic VS positive creat down to 1.3 K still low cough significantly decreased Objective Last 24 Hour Vital Signs Date Time Temp Pulse Resp B/P (MAP) Pulse Ox O2 Delivery O2 Flow Rate FiO2 04/24/17 08:00 98.1 65 20 112/67 100 04/24/17 05:37 105/65 04/24/17 04:00 98.1 63 20 121/73 100 Room Air 04/24/17 01:00 60 61 76 04/24/17 00:30 60 61 76 04/24/17 00:00 97.5 60 19 116/73 99 Room Air 04/23/17 22:42 120/68 04/23/17 21:00 105/58 04/23/17 21:00 105/58 04/23/17 20:00 97.5 64 18 105/58 99 Room Air 04/23/17 19:20 78 18 Room Air 21 04/23/17 17:00 61 63 65 04/23/17 16:00 97.6 66 20 112/64 100 04/23/17 14:02 110/61 2/2/18 12:15 98.3 71 22 110/61 99 Room Air 04/23/17 09:00 72 75 81 Intake and Output 04/23/17 04/24/17 19:00 07:00 Intake Total 600 ml Balance 600 ml Intake Oral 600 ml # Voids 5 2 # Bowel Movements 2 Laboratory Tests 04/23/17 15:10: Erythrocyte Sedimentation Rate 30, Total Protein (PEP) [Pending], Albumin (PEP) [Pending], Globulin (PEP) [Pending], Albumin/Globulin Ratio [Pending], Alpha-1- Globulins [Pending], [id number]-3-[id number] [Pending], Beta Globulins [Pending], Beta Gamma Globulin [Pending], PEP Abnormal Protein Bands [Pending], Protein Electrophoresis Interpret [Pending], Vitamin B12 Level 652, Methylmalonic Acid [ Pending], Anti-Nuclear Antibody Screen [Pending] 04/24/17 06:20: White Blood Count 8.9, Red Blood Count 3.62L, Hemoglobin 12.5, Hematocrit 34.9L , Mean Corpuscular Volume 96, Mean Corpuscular Hemoglobin 34.4H, Mean Corpuscular Hemoglobin Concent 35.8, Red Cell Distribution Width 11.0L, Platelet Count 225, Mean Platelet Volume 7.9, Neutrophils (%) (Auto) 66.1, Lymphocytes (%) (Auto) 21.4, Monocytes (%) (Auto) 11.6H, Eosinophils (%) (Auto) 0.1, Basophils (%) (Auto) 0.8 Current Medications Medications (Trade) Dose Ordered Sig/Ouamr Route PRN Reason Start Time Stop Time Status Last Admin Dose Admin Acetaminophen (Tylenol) 650 mg Q4H PRN ORAL fever (temp>100.5 F)/headache 04/22/17 16:30 05/20/17 16:29 04/22/17 16:26 Albuterol/ Ipratropium (Albuterol/ Ipratropium) 3 ml Q4H PRN HHN Shortness of Breath 04/22/17 16:30 04/24/17 16:29 04/22/17 20:20 Amlodipine Besylate (Norvasc) 10 mg DAILY ORAL 04/23/17 09:00 05/20/17 08:59 04/23/17 08:33 Aspirin (Ecotrin) 81 mg DAILY ORAL 04/23/17 14:00 05/23/17 13:59 04/23/17 14:02 Clonidine HCl (Catapres Tab) 0.1 mg EVERY 8 HOURS ORAL 04/22/17 22:00 05/21/17 17:29 04/23/17 22:42 Enalaprilat (Vasotec) 2.5 mg Q6H PRN IV sbp more than 160 04/22/17 16:30 05/19/17 16:29 Gabapentin (Neurontin) 100 mg THREE TIMES A DAY ORAL 04/23/17 14:00 05/23/17 13:59 04/23/17 17:31 Guaifenesin/ Dextromethorphan (Robitussin DM Syrup) 10 ml Q4H PRN ORAL For Cough 04/23/17 09:45 05/23/17 09:44 Heparin Sodium (Porcine) (Heparin 5000 units/ml) 5,000 units EVERY 12 HOURS SUBQ 04/22/17 21:00 05/20/17 08:59 04/23/17 22:46 Hydralazine HCl (Apresoline) 50 mg Q12HR ORAL 04/22/17 21:00 05/22/17 20:59 04/23/17 08:33 Hydrochlorothiazide (Hydrodiuril) 25 mg DAILY ORAL 04/23/17 09:00 05/20/17 08:59 04/23/17 08:33 Irbesartan (Avapro) 150 mg Q12HR ORAL 04/22/17 21:00 05/20/17 08:59 04/23/17 08:34 Metoprolol Succinate (Toprol XL) 25 mg DAILY ORAL 04/23/17 09:00 05/20/17 08:59 04/23/17 08:34 Nitroglycerin (Ntg) 0.4 mg Every 5 Minutes PRN SL Prn Chest Pain 04/22/17 16:30 05/19/17 16:29 Ondansetron HCl (Zofran) 4 mg Q6H PRN IVP Nausea & Vomiting 04/22/17 16:30 05/19/17 16:29 Pantoprazole (Protonix) 40 mg ACBREAKFAST ORAL 04/23/17 06:30 05/23/17 06:29 04/24/17 05:41 Polyethylene Glycol (Miralax) 17 gm DAILYPRN PRN ORAL Constipation 04/22/17 16:30 05/19/17 16:29 Temazepam (Restoril) 15 mg HSPRN PRN ORAL Insomnia 04/22/17 21:00 04/26/17 20:59 Ty ([facility])Isela NP Apr 24, 2017 08:56
[2017-04-24] MEDS: HydrALAZINE 50mg tab ORAL SCH (09:00)
[2017-04-24] MEDS: Metoprolol Succinate XL 25mg tab ORAL SCH (09:00)
[2017-04-24] MEDS: Irbesartan 150mg tablet ORAL SCH (09:00)
[2017-04-24] MEDS: Aspirin EC 81mg tab ORAL SCH (09:23)
[2017-04-24] MEDS: Heparin 5000 units/ml inj SUBQ SCH (09:29)
[2017-04-24] MEDS ORDERED: GABAPENTIN100 MG ORAL (12:06)
[2017-04-24] MEDS ORDERED: CLONIDINE0.1 MG ORAL (12:06)
--- NOTE | 2017-04-24 14:55 | Internal Med Progress Note ---
Subjective Date of Service: Apr 24, 2017 Physician Name Christy Rdz Attending Physician Tommy Enrique MD Current Medications Medications (Trade) Dose Ordered Sig/Oumar Route PRN Reason Start Time Stop Time Status Last Admin Dose Admin Acetaminophen (Tylenol) 650 mg Q4H PRN ORAL fever (temp>100.5 F)/headache 04/22/17 16:30 05/20/17 16:29 04/22/17 16:26 Albuterol/ Ipratropium (Albuterol/ Ipratropium) 3 ml Q4H PRN HHN Shortness of Breath 04/22/17 16:30 04/24/17 16:29 04/22/17 20:20 Amlodipine Besylate (Norvasc) 10 mg DAILY ORAL 04/23/17 09:00 05/20/17 08:59 04/24/17 09:23 Aspirin (Ecotrin) 81 mg DAILY ORAL 04/23/17 14:00 05/23/17 13:59 04/24/17 09:23 Clonidine HCl (Catapres Tab) 0.1 mg EVERY 8 HOURS ORAL 04/22/17 22:00 05/21/17 17:29 04/23/17 22:42 Enalaprilat (Vasotec) 2.5 mg Q6H PRN IV sbp more than 160 04/22/17 16:30 05/19/17 16:29 Gabapentin (Neurontin) 100 mg THREE TIMES A DAY ORAL 04/23/17 14:00 05/23/17 13:59 04/24/17 13:14 Guaifenesin/ Dextromethorphan (Robitussin DM Syrup) 10 ml Q4H PRN ORAL For Cough 04/23/17 09:45 05/23/17 09:44 Heparin Sodium (Porcine) (Heparin 5000 units/ml) 5,000 units EVERY 12 HOURS SUBQ 04/22/17 21:00 05/20/17 08:59 04/24/17 09:29 Hydralazine HCl (Apresoline) 50 mg Q12HR ORAL 04/22/17 21:00 05/22/17 20:59 04/23/17 08:33 Hydrochlorothiazide (Hydrodiuril) 25 mg DAILY ORAL 04/23/17 09:00 05/20/17 08:59 04/23/17 08:33 Irbesartan (Avapro) 150 mg Q12HR ORAL 04/22/17 21:00 05/20/17 08:59 04/23/17 08:34 Metoprolol Succinate (Toprol XL) 25 mg DAILY ORAL 04/23/17 09:00 05/20/17 08:59 04/23/17 08:34 Nitroglycerin (Ntg) 0.4 mg Every 5 Minutes PRN SL Prn Chest Pain 04/22/17 16:30 05/19/17 16:29 Ondansetron HCl (Zofran) 4 mg Q6H PRN IVP Nausea & Vomiting 04/22/17 16:30 05/19/17 16:29 Pantoprazole (Protonix) 40 mg ACBREAKFAST ORAL 04/23/17 06:30 05/23/17 06:29 04/24/17 05:41 Polyethylene Glycol (Miralax) 17 gm DAILYPRN PRN ORAL Constipation 04/22/17 16:30 05/19/17 16:29 Temazepam (Restoril) 15 mg HSPRN PRN ORAL Insomnia 04/22/17 21:00 04/26/17 20:59 Allergies: Coded Allergies: No Known Allergies (Verified Allergy, Unknown, 12/19/05) ROS Limited/Unobtainable: No Constitutional: Reports: no symptoms HEENT: Reports: no symptoms Cardiovascular: Reports: no symptoms Respiratory: Reports: no symptoms Gastrointestinal/Abdominal: Reports: no symptoms Genitourinary: Reports: no symptoms Neurologic/Psychiatric: Reports: no symptoms Subjective 67 YO F admitted with shortness of breath. Blood pressure still elevated. Cover for Int Sebastian-Dr Enrique Objective Last Vital Signs Date Time Temp Pulse Resp B/P (MAP) Pulse Ox O2 Delivery O2 Flow Rate FiO2 04/24/17 12:35 74 20 Room Air 21 04/24/17 09:23 112/67 04/24/17 08:00 98.1 100 Laboratory Tests Test 04/23/17 15:10 04/24/17 06:20 Erythrocyte Sedimentation Rate 30 MM/HR (0-30) Total Protein (PEP) Pending Albumin (PEP) Pending Globulin (PEP) Pending Albumin/Globulin Ratio Pending [id number] Pending [id number] Pending Beta Globulins Pending Beta Gamma Globulin Pending PEP Abnormal Protein Bands Pending Protein Electrophoresis Interpret Pending Vitamin B12 Level 652 PG/ML (193-986) Methylmalonic Acid Pending Anti-Nuclear Antibody Screen Pending White Blood Count 8.9 K/UL (4.8-10.8) Red Blood Count 3.62 M/UL (4.20-5.40) L Hemoglobin 12.5 G/DL (12.0-16.0) Hematocrit 34.9 % (37.0-47.0) L Mean Corpuscular Volume 96 FL (80-99) Mean Corpuscular Hemoglobin 34.4 PG (27.0-31.0) H Mean Corpuscular Hemoglobin Concent 35.8 G/DL (32.0-36.0) Red Cell Distribution Width 11.0 % (11.6-14.8) L Platelet Count 225 K/UL (150-450) Mean Platelet Volume 7.9 FL (6.5-10.1) Neutrophils (%) (Auto) 66.1 % (45.0-75.0) Lymphocytes (%) (Auto) 21.4 % (20.0-45.0) Monocytes (%) (Auto) 11.6 % (1.0-10.0) H Eosinophils (%) (Auto) 0.1 % (0.0-3.0) Basophils (%) (Auto) 0.8 % (0.0-2.0) Sodium Level 131 MMOL/L (136-145) L Potassium Level 3.3 MMOL/L (3.5-5.1) L Chloride Level 97 MMOL/L (98-107) L Carbon Dioxide Level 24 MMOL/L (21-32) Anion Gap 11 mmol/L (5-15) Blood Urea Nitrogen 32 mg/dL (7-18) H Creatinine 1.3 MG/DL (0.55-1.30) Estimat Glomerular Filtration Rate 49.2 mL/min (>60) Glucose Level 93 MG/DL (74-106) Calcium Level 8.5 MG/DL (8.5-10.1) Magnesium Level 1.6 MG/DL (1.8-2.4) L Intake and Output 04/23/17 04/24/17 19:00 07:00 Intake Total 600 ml Balance 600 ml Intake Oral 600 ml # Voids 5 2 # Bowel Movements 2 Objective General Appearance: alert, mild distress, thin EENT: PERRL/EOMI, normal ENT inspection Neck: non-tender, normal alignment, supple, normal inspection Cardiovascular: normal peripheral pulses, normal rate, regular rhythm, no gallop/murmur, no JVD Respiratory/Chest: respiratory distress, crackles/rales, rhonchi - bilaterally , expiratory wheezing Abdomen: normal bowel sounds, non tender, soft, no organomegaly, no mass Extremities: normal range of motion Neurologic: 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 Multiple meds: clonidine, labetalol, norvasc, hydralazine, HCTZ, avapro and toprol Assessment/Plan D/C home today CHRISTY RDZ Apr 24, 2017 14:55
[2017-04-24] MEDS ORDERED: MAG-OX 400400 MG ORAL (15:32)
[2017-04-24 16:00] VITALS: BP 128/75
[2017-04-24] MEDS ORDERED: Magnesium Oxide 400mg tab ORAL SCH (18:00)
--- NOTE | 2017-04-27 12:45 | Discharge Summary ---
Discharge Summary Hospital Course Date of Admission Apr 19, 2017 at 22:19 Date of Discharge Apr 24, 2017 at 17:46 Admitting Diagnosis hypertensive crisis HPI Magda Jeffrey is a 67 year old female who was admitted on Apr 19, 2017 at 22: 19 for Hypertensive Crisis Hospital Course dc summary #[id number] Discharge Medications New Medications: Magnesium Oxide (Magnesium Oxide) 400 Mg Tablet 400 MG ORAL DAILY, #7 TAB 0 Refills Clonidine HCl (Clonidine HCl) 0.1 Mg Tablet 0.1 MG ORAL EVERY 8 HOURS, #90 TAB Gabapentin* (Gabapentin*) 100 Mg Capsule 100 MG ORAL THREE TIMES A DAY, #90 CAP Continued Medications: Amlodipine Besylate* (Amlodipine Besylate*) 10 Mg Tablet 10 MG PO DAILY Aspirin (Aspirin EC) 81 Mg Tabec 81 MG PO DAILY Hydralazine Hcl* (Hydralazine Hcl*) 50 Mg Tablet 50 MG ORAL BID, TAB Hydrochlorothiazide* (Hydrochlorothiazide*) 25 Mg Tablet 25 MG ORAL DAILY, TAB Irbesartan* (Avapro*) 150 Mg Tablet 150 MG ORAL Q12HR, #1 TAB Metoprolol Succinate* (Metoprolol Succinate*) 25 Mg Tab.er.24h 25 MG ORAL DAILY, TAB Discontinued Medications: Acetaminophen (Tylenol) 325 Mg Tablet 650 MG ORAL Q6H PRN for Prn Pain/Headache/Temp > 101, #30 TAB 0 Refills Clonidine Hcl* (Catapres*) 0.1 Mg Tablet 0.1 MG ORAL EVERY 6 HOURS, TAB Clonidine Hcl* (Catapres*) 0.2 Mg Tablet 0.2 MG ORAL Q12HR, #90 TAB Metoprolol Tartrate (Metoprolol Tartrate) 25 Mg Tablet 25 MG ORAL EVERY 12 HOURS, TAB Ranitidine Hcl* (Zantac*) 150 Mg Tablet 150 MG ORAL TWICE A DAY, #60 Valsartan (Diovan) 80 Mg Tab 160 MG PO BID, TAB Take one tablet by mouth daily Discharge Condition Upon Discharge: stable Discharge Disposition Patient was discharged to Home with services Discharge Diagnoses: Ty (Celso)Isela NP Apr 27, 2017 12:45
--- NOTE | 2017-04-28 03:45 | Discharge Summary 2 SIG ---
DATE OF ADMISSION: 04/19/2017 DATE OF DISCHARGE: 04/24/2017 REASON FOR ADMISSION: 67-year-old female, with history of hypertension, chronic obstructive pulmonary disease, and CVA, presented to emergency department with cough, congestion, and difficulty breathing. The patient reported chest tightness. She stated she had been compliant with her blood pressure medication regimen. She denied being a smoker. Workup in the emergency room revealed blood pressure -226/127. Pulse oximetry was stable on room air. Laboratory workup revealed no leukocytosis. Mild anemia with hemoglobin -11.3 and hematocrit -32.3. Electrolytes showed hypokalemia, potassium -3.1. Stable renal parameters and LFT. Troponin negative. ProBNP -429. EKG revealed normal sinus rhythm. No acute ischemic changes. The patient was admitted with chest pain, rule out acute coronary syndrome, hypertensive emergency, chronic obstructive pulmonary disease, and tobacco use. HOSPITAL COURSE: The patient was admitted to telemetry floor. Serial troponin, EKG, and Echo were ordered. Cardiology consult was requested. Pulmonary toilet provided as needed. Supplemental oxygen titrated to keep saturation above 92%. DVT prophylaxis provided. Blood pressure was managed with multiple regimen of antihypertensive medication as per line painting machine operator. Regimen was uptitrated, and blood pressure stabilized prior to discharge. Blanket Maker recommended to avoid SALOME inhibitor due to cough. Chest x-ray revealed borderline cardiomegaly, but no acute process. The patient initially was on steroids, then off steroids ,since bronchospasm resolved. Antitussive provided as needed. The patient was counseled on smoking cessation. Blanket Maker closely followed. Serial troponin negative. EKG with no acute ischemic changes. The patient was ruled out for acute myocardial infarction. Echocardiogram revealed preserved ejection fraction of 65% to 70%. Chest pain likely was cough-induced as per line painting machine operator. Orthostatic vital signs were positive. The patient received 1 liter of normal saline for orthostatic changes and elevated creatinine, which was noted on 04/23/2017. Potassium was replaced. Electrolytes were stable. Creatinine down after one liter of fluid. Neurologist seen and evaluated the patient. MRI of the brain was negative. Cerebral lesion and posterior column disease were ruled out. The patient was started on Neurontin as per Neurology recommendation for presumed sensory neuropathy. Creatinine up to 1.5 on 04/23/2017 and potassium 2.7. The next day creatinine down to 1.3 after one liter of fluid. The patient was working with physical therapists, was out of bed, and ambulated. Fall precaution were maintained. Patient counseled on smoking cessation, declined Nicotine patch. The patient was stable for discharge home with home health services for PT. FINAL DIAGNOSES: 1. Hypertensive emergency, resolved. 2. Chest pain, cough-induced. 3. Chronic obstructive pulmonary disease. 4. Acute tubular necrosis (likely due to steroids, started due to bronchospasm), resolved. 5. Abnormal slightly ataxic gait. 6. Tobacco use. 7. History of cerebrovascular accident. 8. Orthostatic changes. 9. Hypokalemia. 10. Presumed sensory neuropathy. DISCHARGE MEDICATIONS: See medication reconciliation list. DISCHARGE INSTRUCTIONS: The patient was discharged home with [facility]. Follow up with the primary care provider next week. Tommy Enrique M.D. Isela SarkarNorthwell HealthRusty NShanna DR: TERRANCE JOB#: [id number] CC: DAJA
== END 2017-04-24 17:46 | disposition home health service (06) | DRG 304 ==
LOC: EMR 20:25 → 2E 22:19 → EDBEDREQ 22:57 → 2E 23:57 → 4E 04-22 16:03
DX: I16.1 Hypertensive emergency (principal); N17.0 Acute kidney failure with tubular necrosis; Z68.1 Body mass index [BMI] 19.9 or less, adult; T38.0X5A Adverse effect of glucocorticoids and synthetic analogues, initial encounter; J44.9 Chronic obstructive pulmonary disease, unspecified; R07.89 Other chest pain; E87.6 Hypokalemia; R27.0 Ataxia, unspecified; F17.200 Nicotine dependence, unspecified, uncomplicated; Z86.73 Personal history of transient ischemic attack (TIA), and cerebral infarction without residual deficits; I95.1 Orthostatic hypotension; G62.9 Polyneuropathy, unspecified
CPT/HCPCS: 36415; 70551; 71045; 80048; 80053; 80061; 82550; 82553; 82607; 83735; 83880; 83921; 84165; 84443; 84484; 85007; 85025; 85610; 85651; 85730; 86039; 86140; 87040; 93005; 93306; 94640; 94664; 99285; J7620; J8499

== ENCOUNTER 2017-04-26 08:17 | Emergency (ER) | payer MEDICARE, MEDICAID ==
[~2017-04-26] VITALS: Ht 165.1 cm; Wt 49.4 kg
[~2017-04-26 08:17] MED LIST changes: +CLONIDINE0.1 MG ORAL; +GABAPENTIN100 MG ORAL; +MAG-OX 400400 MG ORAL
[2017-04-26] MEDS ORDERED: METOPROLOL TART25 MG ORAL (08:39)
[2017-04-26] MEDS ORDERED: ZANTAC150 MG ORAL (08:39)
[2017-04-26] MEDS ORDERED: CATAPRES0.2 MG ORAL (08:39)
[2017-04-26] MEDS ORDERED: DIOVAN80 MG ORAL (08:39)
[2017-04-26] MEDS ORDERED: Bacitracin Oint UD TOPIC ONE (08:45)
[2017-04-26] MEDS ORDERED: Bactrim-DS 1 tab ORAL ONE (08:45)
--- NOTE | 2017-04-26 08:45 | Emergency Room Report ---
History of Present Illness General Chief Complaint: General Complaint Source: Patient, Medical Record Present Illness HPI Patient has swelling and drainage from her right antecubital area where an IV was started when she presented to emergency departments before 6 day hospitalization. She was discharged April 24. She has more pain and a little redness. She felt feverish but no documented temperature. Pain rated 8/ 10 aching, constant. Not radiate. Tetanus last year. R handed. She was in the hospital for treatment of hypertension and hypokalemia. Allergies: Coded Allergies: No Known Allergies (Verified Allergy, Unknown, 12/19/05) Patient History Past Medical History: see triage record Social History: Denies: smoking, alcohol use, drug use Social History Narrative from home Reviewed Nursing Documentation: PMH: Agreed, PSxH: Agreed Nursing Documentation-PMH Hx Cardiac Problems: Yes - Palpatations Hx Hypertension: Yes Hx COPD: Yes Hx Cancer: No Hx Gastrointestinal Problems: No Hx Neurological Problems: No Hx Cerebrovascular Accident: Yes - 2010 Review of Systems All Other Systems: negative except mentioned in HPI Physical Exam Vital Signs Date Time Temp Pulse Resp B/P (MAP) Pulse Ox O2 Delivery O2 Flow Rate FiO2 04/26/17 08:22 112 18 165/79 98 Room Air Sp02 EP Interpretation: reviewed, normal General Appearance: well appearing, no apparent distress Head: normocephalic, atraumatic ENT: hearing grossly normal, normal voice Neck: full range of motion, supple Respiratory: no respiratory distress, speaking full sentences Cardiovascular #2: 2+ radial (R) Musculoskeletal: no calf tenderness Neurologic: alert, normal gait, grossly normal Psychiatric: mood/affect normal Skin: other - superficial abscess/open and with some drainage and erythema R antecubital area Medical Decision Making Diagnostic Impression: Primary Impression: Cellulitis Qualified Codes: L03.113 - Cellulitis of right upper limb ER Course Patient with cellulitis/abscess R antecubital area. Draining. Needs local and parenteral antibiotics. Needs re-evaluation in 2 - 4 days. Patient stable for outpatient observation and treatment. Last Vital Signs Date Time Temp Pulse Resp B/P (MAP) Pulse Ox O2 Delivery O2 Flow Rate FiO2 04/26/17 09:06 100 18 165/79 98 Room Air Patient afebrile. Status: improved Disposition: HOME, SELF-CARE Condition: Improved Scripts Bacitracin (Bacitracin) 28.4 Gm Oint...g. 1 APPLIC TOPIC BID, #10 GM Prov: Vishal Mcneill M.D. 04/26/17 Hydrocodone Bit/Acetaminophen 5-325* (NORCO 5-325*) 1 Each Tablet 1 TAB ORAL Q6H Y for For Pain, #10 TAB 0 Refills Prov: Vishal Mcneill M.D. 04/26/17 Trimethoprim/Sulfamethoxazole 160/800* (BACTRIM DS TABLET*) 1 Each Tablet 1 TAB ORAL Q12H, #14 TAB 0 Refills Prov: Vishal Mcneill M.D. 04/26/17 Vishal Mcneill M.D. Apr 26, 2017 08:45
[2017-04-26] MEDS ORDERED: NORCO 5-325 TA1 EACH ORAL (08:49)
[2017-04-26] MEDS ORDERED: BACTRIM DS TAB1 EAC1 ORAL (08:49)
[2017-04-26] MEDS ORDERED: BACITRACIN15 GM TOPIC (08:49)
[2017-04-26 09:05] VITALS: BP 165/79
[2017-04-26 09:06] VITALS: BP 165/79
== END 2017-04-26 09:05 | disposition home or self-care (01) ==
LOC: EMR 08:58
DX: L03.113 Cellulitis of right upper limb (principal); I10 Essential (primary) hypertension; J44.9 Chronic obstructive pulmonary disease, unspecified; Z86.73 Personal history of transient ischemic attack (TIA), and cerebral infarction without residual deficits
CPT/HCPCS: 99283

== ENCOUNTER 2017-05-06 12:32 | Inpatient (IN) | payer MEDICARE, MEDICAID ==
[2017-05-06] VITALS (8 sets, daily range): BP systolic 77–140; BP diastolic 51–79
[~2017-05-06] VITALS: Ht 167.6 cm; Wt 51.7 kg
[~2017-05-06 12:32] MED LIST changes: +BACITRACIN15 GM TOPIC; +BACTRIM DS TAB1 EAC1 ORAL; +DIOVAN80 MG ORAL; +NORCO 5-325 TA1 EACH ORAL; +ZANTAC150 MG ORAL
--- NOTE | 2017-05-06 13:09 | Diagnostic Imaging Report ---
Indication: Dyspnea Comparison: 04/19/2017 A single view chest radiograph was obtained. Findings: No definite infiltrate or pulmonary vascular congestion identified. The heart is enlarged. The aorta is mildly enlarged consistent with atherosclerotic vascular disease. The bones are osteopenic. Impression: No acute disease
[2017-05-06 13:16] LABS: BASOPHILS % (AUTO) 1.2 % (0.0-2.0); EOSINOPHILS % (AUTO) 1.3 % (0.0-3.0); HEMATOCRIT 32.4 % (37.0-47.0); HEMOGLOBIN 11.4 G/DL (12.0-16.0); LYMPHOCYTES % (AUTO) 13.9 % (20.0-45.0); MEAN CORPUSCULAR VOLUME 97 FL (80-99); MONOCYTES % (AUTO) 8.3 % (1.0-10.0); NEUTROPHILS % (AUTO) 75.3 % (45.0-75.0); PLATELET COUNT 281 K/UL (150-450); RED BLOOD COUNT 3.35 M/UL (4.20-5.40); RED CELL DISTRIBUTION WIDTH 11.1 % (11.6-14.8); WHITE BLOOD COUNT 12.5 K/UL (4.8-10.8)
[2017-05-06 13:22] LABS: ANION GAP 7 mmol/L (5-15); BLOOD UREA NITROGEN 16 mg/dL (7-18); CALCIUM 8.9 MG/DL (8.5-10.1); CARBON DIOXIDE 25 MMOL/L (21-32); CHLORIDE 94 MMOL/L (98-107); CREATININE 1.6 MG/DL (0.55-1.30); POTASSIUM 4.5 MMOL/L (3.5-5.1); SODIUM 125 MMOL/L (136-145)
[2017-05-06 13:36] LABS: ALANINE AMINOTRANSFERASE 34 U/L (12-78); ALBUMIN 3.3 G/DL (3.4-5.0); ALBUMIN/GLOBULIN RATIO 0.8 (1.0-2.7); ALKALINE PHOSPHATASE 85 U/L (46-116); ASPARTATE AMINO TRANSFERASE 18 U/L (15-37); BILIRUBIN,TOTAL 0.3 MG/DL (0.2-1.0); CKMB < 0.5 NG/ML (0.0-3.6); CREATINE KINASE 52 U/L (26-308)
--- NOTE | 2017-05-06 13:39 | Emergency Room Report ---
History of Present Illness General Chief Complaint: Syncope Source: Patient, Family Member Present Illness HPI 67YOF KRISTAN with synopal episode She states she got up to walk to the sink at her kitchen and next thing she knew she was on the ground being attended to by neighbors. She noted she was unable to walk because of pain to left hip. sHe states she was unconscious for minutes. She denies pain anywhere else aside from left hip. sHe takes multiple blood pressure medications, she took metoprolol,. HCTZ and norvasc this morning. Per patient's relative patient had multiple episodes of syncope in route as well She was last admitted here for hypertensive urgency Currently denies chest pain, shortness of breath, palpitations Allergies: Coded Allergies: No Known Allergies (Verified Allergy, Unknown, 12/19/05) Patient History Past Medical History: HTN Past Surgical History: none Pertinent Family History: none Social History: Denies: smoking, alcohol use, drug use Last Menstrual Period: 0 Now: No Immunizations: UTD Reviewed Nursing Documentation: PMH: Agreed, PSxH: Agreed Nursing Documentation-PMH Past Medical History: No History, Except For Hx Cardiac Problems: Yes - Palpatations Hx Hypertension: Yes Hx COPD: Yes Hx Cancer: No Hx Gastrointestinal Problems: No Hx Neurological Problems: No Hx Cerebrovascular Accident: Yes - 2010 Review of Systems All Other Systems: negative except mentioned in HPI Physical Exam Vital Signs Date Time Temp Pulse Resp B/P (MAP) Pulse Ox O2 Delivery O2 Flow Rate FiO2 05/06/17 12:40 97.5 72 20 83/56 100 Room Air 97.5 Sp02 EP Interpretation: reviewed, normal General Appearance: normal inspection, well appearing, no apparent distress, alert, GCS 15, non-toxic Head: normocephalic, atraumatic Eyes: bilateral eye PERRL, bilateral eye EOMI ENT: normal ENT inspection, hearing grossly normal, normal pharynx, no angioedema, normal voice, TMs + canals normal, uvula midline, moist mucus membranes Neck: normal inspection, full range of motion, supple, thyroid normal, no meningismus, no bony tend Respiratory: normal inspection, lungs clear, normal breath sounds, no rhonchi, no respiratory distress, no retraction, no accessory muscle use, no wheezing, speaking full sentences Cardiovascular #1: regular rate, rhythm, no edema, no JVD, normal capillary refill Gastrointestinal: normal inspection, normal bowel sounds, non tender, soft, no mass, no peritonitis, non-distended, no guarding, no hernia, no pulsatile mass Genitourinary: no CVA tenderness Musculoskeletal: normal inspection, back normal, normal range of motion, non- tender, no calf tenderness, pelvis stable, decreased range of motion, Leny's Sign negative, other - Palpable ttp left groin. No lower left ext shortening or rotation Neurologic: normal inspection, alert, oriented x3, responsive, supervisor operations III-XII nml as tested, motor strength/tone normal, cerebellar normal, normal gait, speech normal Psychiatric: normal inspection, judgement/insight normal, mood/affect normal, no suicidal/homicidal ideation, no delusions Skin: normal inspection, normal color, no rash Lymphatic: normal inspection, no adenopathy Medical Decision Making Diagnostic Impression: Primary Impression: Syncope Qualified Codes: R55 - Syncope and collapse Additional Impressions: Left hip pain Fall Qualified Codes: W19.XXXA - Unspecified fall, initial encounter JAKY (acute kidney injury) Polypharmacy ER Course VS normotensive Afebrile Syncope likely combination of polypharmacy - metoprolol gracie - for HTN, hypotension and dehydration given slight elevation in serumCr Previously seen first degree AV block also seen today Labs significant for hyponatremia, JAKY Trop WNL ECG no other ischemia Hip xrays: no acute traumatic injury is obvious. Chronic arthritis. Endorsed: Dr Enrique 237pm EKG Diagnostic Results Rate: normal, other - 1st degree AV block ST Segments: no acute changes ASA given to the pt in ED: No Rhythm Strip Diag. Results EP Interpretation: yes Rate: 73 Rhythm: NSR, no PVC's, no ectopy Other X-Ray Diagnostic Results Other X-Ray Diagnostic Results : X-Ray ordered: Left hip # of Views/Limited Vs Complete: 3 View Indication: Pain EP Interpretation: Yes Interpretation: no dislocation, no soft tissue swelling, no fractures Impression: No acute disease Electronically Signed by: Dr Rich Lund MD Last Vital Signs Date Time Temp Pulse Resp B/P (MAP) Pulse Ox O2 Delivery O2 Flow Rate FiO2 05/06/17 12:50 97.5 78 20 77/54 100 Room Air 97.5 Status: improved Disposition: ADMITTED INPATIENT Condition: Serious Referrals: Tommy Enrique MD (PCP) RICH LUND M.D. May 06, 2017 13:39
[2017-05-06] MEDS ORDERED: Mylanta II UD 30ml ORAL PRN (14:45)
[2017-05-06] MEDS ORDERED: Albuterol/Ipratropium 3ml neb HHN PRN (14:45)
[2017-05-06] MEDS ORDERED: LORazepam Inj 2mg/ml 1ml IV PRN (14:45)
[2017-05-06] MEDS ORDERED: Nitroglycerin Subl 0.4mg tab SL PRN (14:45)
--- NOTE | 2017-05-06 15:05 | Diagnostic Imaging Report ---
Indications: hip pain Findings: Two views of the left hip were obtained. No acute fracture is demonstrated. Alignment of the hip is within normal limits. Osteopenia noted. Moderate acetabular osteophyte formation noted. Soft tissues are unremarkable. Impression: Negative for acute injury.
[2017-05-06] MEDS: Morphine Sulfate 2mg/ml Inj IVP PRN (19:58)
--- NOTE | 2017-05-06 20:04 | Cardiology Progress Note ---
Assessment/Plan Assessment/Plan hold antihypertensive ivf hold hctrx firas med to be start clinsidien when bp greater thna 150 to avoid withdrawl htn [id number] Objective Last 24 Hour Vital Signs Date Time Temp Pulse Resp B/P (MAP) Pulse Ox O2 Delivery O2 Flow Rate FiO2 05/06/17 19:58 98.0 05/06/17 18:36 98.0 77 16 107/63 100 Room Air 98.0 05/06/17 17:50 98.0 72 15 114/69 100 Room Air 98.0 05/06/17 16:47 98.0 75 16 110/51 98 Room Air 98.0 05/06/17 15:18 97.5 71 13 140/78 100 Room Air 97.5 05/06/17 13:39 97.5 73 17 127/79 100 Room Air 97.5 05/06/17 13:10 97.5 78 18 108/68 99 Room Air 97.5 05/06/17 12:50 97.5 78 20 77/54 100 Room Air 97.5 05/06/17 12:40 97.5 72 20 83/56 100 Room Air 97.5 Laboratory Tests Test 05/06/17 12:50 White Blood Count 12.5 K/UL (4.8-10.8) H Red Blood Count 3.35 M/UL (4.20-5.40) L Hemoglobin 11.4 G/DL (12.0-16.0) L Hematocrit 32.4 % (37.0-47.0) L Mean Corpuscular Volume 97 FL (80-99) Mean Corpuscular Hemoglobin 34.0 PG (27.0-31.0) H Mean Corpuscular Hemoglobin Concent 35.2 G/DL (32.0-36.0) Red Cell Distribution Width 11.1 % (11.6-14.8) L Platelet Count 281 K/UL (150-450) Mean Platelet Volume 6.5 FL (6.5-10.1) Neutrophils (%) (Auto) 75.3 % (45.0-75.0) H Lymphocytes (%) (Auto) 13.9 % (20.0-45.0) L Monocytes (%) (Auto) 8.3 % (1.0-10.0) Eosinophils (%) (Auto) 1.3 % (0.0-3.0) Basophils (%) (Auto) 1.2 % (0.0-2.0) Sodium Level 125 MMOL/L (136-145) L Potassium Level 4.5 MMOL/L (3.5-5.1) Chloride Level 94 MMOL/L (98-107) L Carbon Dioxide Level 25 MMOL/L (21-32) Anion Gap 7 mmol/L (5-15) Blood Urea Nitrogen 16 mg/dL (7-18) Creatinine 1.6 MG/DL (0.55-1.30) H Estimat Glomerular Filtration Rate 38.8 mL/min (>60) Glucose Level 110 MG/DL (74-106) H Calcium Level 8.9 MG/DL (8.5-10.1) Total Bilirubin 0.3 MG/DL (0.2-1.0) Aspartate Amino Transf (AST/SGOT) 18 U/L (15-37) Alanine Aminotransferase (ALT/SGPT) 34 U/L (12-78) Alkaline Phosphatase 85 U/L (46-116) Total Creatine Kinase 52 U/L (26-308) Creatine Kinase MB < 0.5 NG/ML (0.0-3.6) Creatine Kinase MB Relative Index 0.9 Troponin I 0.017 ng/mL (0.000-0.056) Total Protein 7.5 G/DL (6.4-8.2) Albumin 3.3 G/DL (3.4-5.0) L Globulin 4.2 g/dL Albumin/Globulin Ratio 0.8 (1.0-2.7) REJI GRANT May 06, 2017 20:04
[2017-05-06] MEDS: Heparin 5000 units/ml inj SUBQ SCH (21:22)
[2017-05-07] VITALS: BP 124/72
--- NOTE | 2017-05-07 02:01 | Consultation ---
DATE OF CONSULTATION: 05/06/2017 CARDIOLOGY CONSULTATION CONSULTING PHYSICIAN: Phan Singleton M.D. REFERRING PHYSICIAN: Patricia Louis M.D. REASON FOR REFERRAL: Syncope. HISTORY OF PRESENT ILLNESS: This is an elderly female, who is known to me from one prior evaluation here at [facility] when she presented with hypertensive issues and upper respiratory tract infection. She states she was discharged home and visiting nurse have been checking her blood pressures and they have been on the lower side, yet she has been taking a lot of medication. This morning, she got up to go to the restroom and developed wooziness, then she found herself on the floor, subsequently had hip pain on the left with pelvic pain on the left side. She does not have any chest pain. There is no PND, no orthopnea. She uses two pillows. There is no dyspnea on exertion. No chest pain on exertion. She has had occasional dizziness on standing. No heart pounding or palpitations at this time. PAST MEDICAL HISTORY: Positive for recent upper respiratory tract infection, hypertension, tobacco use disorder, cough-induced chest pain, hypertensive crisis, chronic obstructive pulmonary disease, accelerated hypertension, bradycardia secondary to increased vagal tone, history of hyponatremia, hypokalemia, secondary to diuretic use, hyperlipidemia, prior history of CVA, osteoarthritis, cervical disk disease, vitamin D deficiency, atypical chest pains, CVA, transient ischemic attack, osteoarthritis, stroke in the , and rotator cuff tear. SOCIAL HISTORY: She smokes about five cigarettes a day. She says socially drinks alcoholic beverages. No drug use, although her son indicates that she may have had some uses previously, but not recently. REVIEW OF SYSTEMS: GASTROINTESTINAL: She has had constipation and diarrhea. No bloody or black stool. GENITOURINARY: Negative. PULMONARY: Occasional coughing and wheezing. CONSTITUTIONAL: Negative. NEUROLOGICAL: She has problems of tingling sensation in her feet and she has occasional problems with spinning, but not frequent. PHYSICAL EXAMINATION: GENERAL: Shows to be an elderly female, in no respiratory distress. NECK: Supple. No jugular venous distention. No abdominojugular reflux noted. LUNGS: Clear to auscultation and percussion. CARDIAC: S1 is normal. S2 is normal. Regular rate and rhythm. No heaves, thrills, gallops, or rubs are noted. ABDOMEN: Soft and nontender. Positive bowel sounds. She has some pain in the left hip area. NEUROLOGICAL: She is awake, alert, and responsive. LABORATORY AND DIAGNOSTIC DATA: Laboratory values, white count of 12.5 with hemoglobin of 11.4 and platelet count of 291. Sodium is 125, potassium 4.5, chloride 94, bicarbonate of 25, BUN 16, creatinine 1.6, glucose of 110, and calcium is 8.9. Troponin is negative. Liver function tests are normal. Albumin is 3.3. Urine, there is no urine. Her imaging, she has had x-ray of her hip and a chest x-ray. Chest x-ray is negative. Hip x-ray is also negative for acute injury, although the patient has pain. EKG, sinus rhythm, normal QRS axis, delay in R-wave progression, otherwise no significant ST or T-wave abnormalities. ASSESSMENT AND PLAN: 1. Syncopal episode. 2. History of hypertension. 3. Recent upper respiratory tract infection. 4. Hypotension. 5. Hyponatremia. Dr. Louis, this patient was seen in cardiac consultation. The patient indicates that she has been taking several medications. It is not clear whether she is taking all the same medications that she was taking prior to her last admission when her medications were adjusted or new ones have been added. Her pill bottles, all of them appear to be old to me and some are almost finished indicating that she probably has been taking back all her old medications that she was taking prior to her last admission. Certianly her blood pressure may have been low at the time of her syncopal episode and her medications for blood pressure need to be adjusted. Anyway, I think her blood pressure may be lower because of volume status in addition to antihypertensive medications and likely cause of her syncope. She will receive some intravenous fluids for the time being and her blood pressure medications gradually resumed as needed, probably would resume the clonidine first because otherwise she may have a withdrawal hypertension from that and other medication to be added. The list of medications that she has from home indicates she is on Norvasc 10 mg on a daily basis, she is also on Septra DS, she is on metoprolol-XL 25 mg every day and magnesium on a daily basis, and she is on hydralazine 50 mg twice daily. She is on gabapentin 100 mg three times daily, she is on hydrochlorothiazide 25 mg daily, and she is on clonidine 0.2 mg twice daily in addition to irbesartan mg every 12 hours. Phan Singleton M.D. DR: ROCKY JOB#: [id number] CC:
[2017-05-07 04:00] VITALS: BP 108/65
[2017-05-07 07:03] LABS: INR 0.9 (0.9-1.1)
[2017-05-07 07:08] LABS: ALANINE AMINOTRANSFERASE 28 U/L (12-78); ALBUMIN 2.9 G/DL (3.4-5.0); ALBUMIN/GLOBULIN RATIO 0.8 (1.0-2.7); ALKALINE PHOSPHATASE 75 U/L (46-116); ANION GAP 8 mmol/L (5-15); ASPARTATE AMINO TRANSFERASE 13 U/L (15-37); BILIRUBIN,TOTAL 0.5 MG/DL (0.2-1.0); BLOOD UREA NITROGEN 16 mg/dL (7-18); CALCIUM 8.2 MG/DL (8.5-10.1); CARBON DIOXIDE 22 MMOL/L (21-32); CHLORIDE 101 MMOL/L (98-107); CHOLESTEROL 151 MG/DL (< 200); CREATININE 1.2 MG/DL (0.55-1.30); HDL CHOLESTEROL 67 MG/DL (40-60); POTASSIUM 4.4 MMOL/L (3.5-5.1); SODIUM 131 MMOL/L (136-145); TRIGLYCERIDES 52 MG/DL (30-150)
[2017-05-07 07:37] LABS: EOSINOPHILS % (AUTO) 2.2 % (0.0-3.0); HEMATOCRIT 28.1 % (37.0-47.0); HEMOGLOBIN 9.8 G/DL (12.0-16.0); MEAN CORPUSCULAR VOLUME 97 FL (80-99); MONOCYTES % (AUTO) 10.1 % (1.0-10.0); NEUTROPHILS % (AUTO) 61.7 % (45.0-75.0); PLATELET COUNT 218 K/UL (150-450); RED BLOOD COUNT 2.89 M/UL (4.20-5.40); RED CELL DISTRIBUTION WIDTH 11.3 % (11.6-14.8); WHITE BLOOD COUNT 6.1 K/UL (4.8-10.8)
[2017-05-07 08:00] VITALS: BP 124/63
--- NOTE | 2017-05-07 08:21 | Pulmonology Progress Note ---
Assessment/Plan Assessment/Plan ASSESSMENT Syncopal episode ( prob due to antiHTN medication and dehydration) Acute hypoNa (likely due to diuretic) JAKY (possibly due to dehydration~ and diuretic) HTN COPD L hip pain (after fall) Hx of CVA anemia PLAN OF CARE Tele hold all anti HTN hold diuretic IVF with NS orthostatic VS this am - no evidence of orthostatic O2 HN prn cardio follows ECHO Fall precautions PT/OT O2 HHN prn X ray L hip no fracture pain management DVT prophylaxis Monitor renal parameters correct lytes as needed, avoid nephrotoxic monitor HH, anemia w/up get UA case discussed and evaluated by supervising physician Subjective Allergies: Coded Allergies: No Known Allergies (Verified Allergy, Unknown, 12/19/05) Subjective reports dizziness, no CP no SOB remains normotensive w/out any anti HTN meds Objective Last 24 Hour Vital Signs Date Time Temp Pulse Resp B/P (MAP) Pulse Ox O2 Delivery O2 Flow Rate FiO2 05/07/17 04:00 72 05/07/17 04:00 97.7 70 20 108/65 98 Room Air 05/07/17 03:53 70 71 80 05/07/17 00:00 98.0 65 20 124/72 100 Room Air 05/07/17 00:00 56 05/06/17 19:58 98.0 05/06/17 19:40 98.0 77 20 96/54 100 Room Air 98.0 05/06/17 19:30 77 20 96/54 100 Room Air 05/06/17 18:36 98.0 77 16 107/63 100 Room Air 98.0 05/06/17 17:50 98.0 72 15 114/69 100 Room Air 98.0 05/06/17 16:47 98.0 75 16 110/51 98 Room Air 98.0 05/06/17 15:18 97.5 71 13 140/78 100 Room Air 97.5 05/06/17 13:39 97.5 73 17 127/79 100 Room Air 97.5 05/06/17 13:10 97.5 78 18 108/68 99 Room Air 97.5 05/06/17 12:50 97.5 78 20 77/54 100 Room Air 97.5 05/06/17 12:40 97.5 72 20 83/56 100 Room Air 97.5 Intake and Output 05/06/17 05/07/17 19:00 07:00 Intake Total 1000 ml Output Total 200 ml Balance 1000 ml -200 ml Intake Oral 0 ml IV Total 1000 ml Output Urine Total 200 ml # Bowel Movements 2 General Appearance: no acute distress HEENT: normocephalic, atraumatic, anicteric, mucous membranes moist, PERRL Respiratory/Chest: chest wall non-tender, lungs clear, normal breath sounds, no respiratory distress, no accessory muscle use Cardiovascular: normal peripheral pulses, normal rate, regular rhythm - SR on tele Abdomen: normal bowel sounds, soft, non tender Extremities: no edema Neurologic/Psychiatric: alert, oriented x 3, responsive Musculoskeletal: normal muscle bulk Laboratory Tests 05/06/17 12:50: White Blood Count 12.5H, Red Blood Count 3.35L, Hemoglobin 11.4L, Hematocrit 32.4L, Mean Corpuscular Volume 97, Mean Corpuscular Hemoglobin 34.0H, Mean Corpuscular Hemoglobin Concent 35.2, Red Cell Distribution Width 11.1L, Platelet Count 281, Mean Platelet Volume 6.5, Neutrophils (%) (Auto) 75.3H, Lymphocytes (%) (Auto) 13.9L, Monocytes (%) (Auto) 8.3, Eosinophils (%) (Auto) 1.3, Basophils (%) (Auto) 1.2, Sodium Level 125L, Potassium Level 4.5, Chloride Level 94L, Carbon Dioxide Level 25, Anion Gap 7, Blood Urea Nitrogen 16, Creatinine 1.6H, Estimat Glomerular Filtration Rate 38.8, Glucose Level 110H, Calcium Level 8.9, Total Bilirubin 0.3, Aspartate Amino Transf (AST/SGOT) 18, Alanine Aminotransferase (ALT/SGPT) 34, Alkaline Phosphatase 85, Total Creatine Kinase 52, Creatine Kinase MB < 0.5, Creatine Kinase MB Relative Index 0.9, Troponin I 0.017, Total Protein 7.5, Albumin 3.3L, Globulin 4.2, Albumin/ Globulin Ratio 0.8L 05/07/17 06:20: White Blood Count 6.1#, Red Blood Count 2.89L, Hemoglobin 9.8L, Hematocrit 28.1L , Mean Corpuscular Volume 97, Mean Corpuscular Hemoglobin 33.9H, Mean Corpuscular Hemoglobin Concent 34.9, Red Cell Distribution Width 11.3L, Platelet Count 218, Mean Platelet Volume 6.5, Neutrophils (%) (Auto) 61.7, Lymphocytes (%) (Auto) 25.0, Monocytes (%) (Auto) 10.1H, Eosinophils (%) (Auto) 2.2, Basophils (%) (Auto) 1.0, Sodium Level 131L, Potassium Level 4.4, Chloride Level 101, Carbon Dioxide Level 22, Anion Gap 8, Blood Urea Nitrogen 16, Creatinine 1.2, Estimat Glomerular Filtration Rate 53.9, Glucose Level 89, Calcium Level 8.2L, Total Bilirubin 0.5, Aspartate Amino Transf (AST/SGOT) 13L, Alanine Aminotransferase (ALT/SGPT) 28, Alkaline Phosphatase 75, Total Protein 6.6, Albumin 2.9L, Globulin 3.7, Albumin/Globulin Ratio 0.8L, Prothrombin Time 9.7, Prothromb Time International Ratio 0.9, Activated Partial Thromboplast Time 28, Triglycerides Level 52, Cholesterol Level 151, LDL Cholesterol 81, HDL Cholesterol 67H, Cholesterol/HDL Ratio 2.3L, Thyroid Stimulating Hormone (TSH) 1.625 Current Medications Medications (Trade) Dose Ordered Sig/Oumar Route PRN Reason Start Time Stop Time Status Last Admin Dose Admin Acetaminophen (Tylenol) 650 mg Q4H PRN ORAL fever (temp>100.5F) 05/06/17 14:45 06/05/17 14:44 05/06/17 23:47 Al Hydroxide/Mg Hydroxide (Mylanta II) 30 ml Q6H PRN ORAL dyspepsia 05/06/17 14:45 06/05/17 14:44 Albuterol/ Ipratropium (Albuterol/ Ipratropium) 3 ml Q4H PRN HHN Shortness of Breath 05/06/17 14:45 05/11/17 14:44 Clonidine HCl (Catapres Tab) 0.1 mg Q4H PRN ORAL For High Blood Pressure 05/06/17 14:45 06/05/17 14:44 Dextrose (Dextrose 50%) STAT PRN IV Hypoglycemia 05/06/17 14:45 06/05/17 14:44 Heparin Sodium (Porcine) (Heparin 5000 units/ml) 5,000 units EVERY 12 HOURS SUBQ 05/06/17 21:00 06/05/17 20:59 05/06/17 21:22 Lorazepam (Ativan 2mg/ml 1ml) 0.5 mg Q4H PRN IV For Anxiety 05/06/17 14:45 05/13/17 14:44 Morphine Sulfate (Morphine Sulfate) 1 mg Q4H PRN IVP For Pain 7-10 05/06/17 14:45 05/13/17 14:44 05/06/17 19:58 Nitroglycerin (Ntg) 0.4 mg Q5M X 3 DOSES PRN SL Prn Chest Pain 05/06/17 14:45 06/05/17 14:44 Ondansetron HCl (Zofran) 4 mg Q6H PRN IVP Nausea & Vomiting 05/06/17 14:45 06/05/17 14:44 Polyethylene Glycol (Miralax) 17 gm HSPRN PRN ORAL Constipation 05/06/17 14:45 06/05/17 14:44 Sodium Chloride 1,000 ml @ 75 mls/hr [id number] IV 05/06/17 22:30 06/05/17 22:29 05/06/17 23:47 Temazepam (Restoril) 15 mg HSPRN PRN ORAL Insomnia 05/06/17 14:45 05/13/17 14:44 05/06/17 23:47 Ty ([facility])Isela NP May 07, 2017 08:21
[2017-05-07] MEDS ORDERED: Metoprolol Succinate XL 25mg tab ORAL SCH (09:00)
[2017-05-07] MEDS: Morphine Sulfate 2mg/ml Inj IVP PRN (10:05)
[2017-05-07] MEDS: Heparin 5000 units/ml inj SUBQ SCH ×2 (10:30→21:05)
[2017-05-07 12:00] VITALS: BP 121/74
--- NOTE | 2017-05-07 14:12 | Cardiology Report ---
APPROVED REPORT EKG Measurement Heart [id number] Sinus rhythm with 2nd degree AV block (Mobitz I) Abnormal ECG
[2017-05-07 16:00] VITALS: BP 131/74
[2017-05-07] MEDS: Morphine Sulfate 4mg/ml Inj IVP PRN ×2 (16:07→20:56)
--- NOTE | 2017-05-07 16:09 | Consultation ---
History of Present Illness General Date patient seen: May 07, 2017 Time patient seen: 08:00 Chief Complaint: Syncope Referring physician: dr Enrique Reason for Consultation: inpatient management Present Illness HPI 67y/old female with PMD of HTN, COPD, CVA BIBEMS with syncopal episode She sustained apparently syncopal episode and subsequently s/p fall , found by neighbor on the floor Multiple episodes of presyncope/syncope en route - per relative upon presentation to ED denied CP, SOB, admitted to occasional palpitations VS with evidence of hypotension-83/56, ECG with NSR, no acute ischemic changes troponin negative CXR no acute cardiopulmonary pathology Na-125 Bun-16 creat- 1.6 WBC-12.5 mild anemia-11.4/32.4 L hip X ray no farctur patient was given bolus of NS fluid and was admitted for further amnageemtn Allergies: Coded Allergies: No Known Allergies (Verified Allergy, Unknown, 12/19/05) Medication History Scheduled Amlodipine Besylate* (Amlodipine Besylate*), 10 MG PO DAILY, (Reported) Aspirin (Aspirin EC), 81 MG PO DAILY, (Reported) Bacitracin (Bacitracin), 1 APPLIC TOPIC BID Clonidine HCl (Clonidine HCl), 0.1 MG ORAL EVERY 8 HOURS Clonidine Hcl* (Catapres*), 0.2 MG ORAL Q8HR, (Reported) Gabapentin* (Gabapentin*), 100 MG ORAL THREE TIMES A DAY Hydralazine Hcl* (Hydralazine Hcl*), 50 MG ORAL BID, (Reported) Hydrochlorothiazide* (Hydrochlorothiazide*), 25 MG ORAL DAILY, (Reported) Irbesartan* (Avapro*), 150 MG ORAL Q12HR Magnesium Oxide (Magnesium Oxide), 400 MG ORAL DAILY Metoprolol Succinate* (Metoprolol Succinate*), 25 MG ORAL DAILY, (Reported) Metoprolol Tartrate* (Metoprolol Tartrate*), 25 MG ORAL EVERY 12 HOURS, ( Reported) Ranitidine Hcl* (Zantac*), 150 MG ORAL TWICE A DAY, (Reported) Trimethoprim/Sulfamethoxazole 160/800* (Bactrim Ds Tablet*), 1 TAB ORAL Q12H Valsartan (Diovan), 160 MG ORAL BID, (Reported) Scheduled PRN Hydrocodone Bit/Acetaminophen 5-325* (Chandler 5-325*), 1 TAB ORAL Q6H PRN for For Pain Patient History Healthcare decision maker N Resuscitation status Full Code Advanced Directive on File Past Medical/Surgical History Past Medical/Surgical History: (1) Mobitz type 2 second degree heart block (2) COPD (chronic obstructive pulmonary disease) (3) Uncontrolled hypertension (4) Blunt head trauma Review of Systems Constitutional: Reports: weakness Eye: Reports: no symptoms ENT: Reports: no symptoms Respiratory: Reports: other - hx of COPD Cardiovascular: Reports: see HPI, syncope Gastrointestinal: Reports: constipation Genitourinary: Reports: no symptoms Musculoskeletal: Reports: see HPI, other - arthritis, L hip- pain after fall Skin: Reports: no symptoms Psychiatric: Reports: no symptoms Neurological: Reports: see HPI Endocrine: Reports: no symptoms Hematologic/Lymphatic: Reports: anemia Physical Exam General Appearance: no apparent distress, alert Lines, tubes and drains: peripheral HEENT: normocephalic, mucous membranes moist, PERRL Neck: non-tender, supple Respiratory/Chest: chest wall non-tender, lungs clear, no respiratory distress , no accessory muscle use Cardiovascular/Chest: normal peripheral pulses, normal rate, regular rhythm Abdomen: normal bowel sounds, non tender, soft Extremities: non-tender Skin Exam: warm/dry 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, alert Musculoskeletal: normal muscle bulk Last 24 Hour Vital Signs Date Time Temp Pulse Resp B/P (MAP) Pulse Ox O2 Delivery O2 Flow Rate FiO2 05/07/17 12:00 98.2 74 18 121/74 100 Room Air 05/07/17 08:00 81 05/07/17 08:00 97.4 86 18 124/63 96 Room Air 05/07/17 04:00 72 05/07/17 04:00 97.7 70 20 108/65 98 Room Air 05/07/17 03:53 70 71 80 05/07/17 00:00 98.0 65 20 124/72 100 Room Air 05/07/17 00:00 56 05/06/17 19:58 98.0 05/06/17 19:40 98.0 77 20 96/54 100 Room Air 98.0 05/06/17 19:30 77 20 96/54 100 Room Air 05/06/17 18:36 98.0 77 16 107/63 100 Room Air 98.0 05/06/17 17:50 98.0 72 15 114/69 100 Room Air 98.0 05/06/17 16:47 98.0 75 16 110/51 98 Room Air 98.0 Intake and Output 05/06/17 05/07/17 19:00 07:00 Intake Total 1000 ml Output Total 200 ml Balance 1000 ml -200 ml Intake Oral 0 ml IV Total 1000 ml Output Urine Total 200 ml # Bowel Movements 2 Laboratory Tests Test 05/07/17 06:20 White Blood Count 6.1 K/UL (4.8-10.8) # Red Blood Count 2.89 M/UL (4.20-5.40) L Hemoglobin 9.8 G/DL (12.0-16.0) L Hematocrit 28.1 % (37.0-47.0) L Mean Corpuscular Volume 97 FL (80-99) Mean Corpuscular Hemoglobin 33.9 PG (27.0-31.0) H Mean Corpuscular Hemoglobin Concent 34.9 G/DL (32.0-36.0) Red Cell Distribution Width 11.3 % (11.6-14.8) L Platelet Count 218 K/UL (150-450) Mean Platelet Volume 6.5 FL (6.5-10.1) Neutrophils (%) (Auto) 61.7 % (45.0-75.0) Lymphocytes (%) (Auto) 25.0 % (20.0-45.0) Monocytes (%) (Auto) 10.1 % (1.0-10.0) H Eosinophils (%) (Auto) 2.2 % (0.0-3.0) Basophils (%) (Auto) 1.0 % (0.0-2.0) Prothrombin Time 9.7 SEC (9.30-11.50) Prothromb Time International Ratio 0.9 (0.9-1.1) Activated Partial Thromboplast Time 28 SEC (23-33) Sodium Level 131 MMOL/L (136-145) L Potassium Level 4.4 MMOL/L (3.5-5.1) Chloride Level 101 MMOL/L (98-107) Carbon Dioxide Level 22 MMOL/L (21-32) Anion Gap 8 mmol/L (5-15) Blood Urea Nitrogen 16 mg/dL (7-18) Creatinine 1.2 MG/DL (0.55-1.30) Estimat Glomerular Filtration Rate 53.9 mL/min (>60) Glucose Level 89 MG/DL (74-106) Calcium Level 8.2 MG/DL (8.5-10.1) L Total Bilirubin 0.5 MG/DL (0.2-1.0) Aspartate Amino Transf (AST/SGOT) 13 U/L (15-37) L Alanine Aminotransferase (ALT/SGPT) 28 U/L (12-78) Alkaline Phosphatase 75 U/L (46-116) Total Protein 6.6 G/DL (6.4-8.2) Albumin 2.9 G/DL (3.4-5.0) L Globulin 3.7 g/dL Albumin/Globulin Ratio 0.8 (1.0-2.7) L Triglycerides Level 52 MG/DL (30-150) Cholesterol Level 151 MG/DL (< 200) LDL Cholesterol 81 mg/dL (<100) HDL Cholesterol 67 MG/DL (40-60) H Cholesterol/HDL Ratio 2.3 (3.3-4.4) L Thyroid Stimulating Hormone (TSH) 1.625 uiU/mL (0.358-3.740) Height (Feet): 5 Height (Inches): 6.00 Weight (Pounds): 114 Medications Current Medications Medications (Trade) Dose Ordered Sig/Oumar Route PRN Reason Start Time Stop Time Status Last Admin Dose Admin Acetaminophen (Tylenol) 650 mg Q4H PRN ORAL fever (temp>100.5F)/headache 05/07/17 15:45 06/06/17 15:44 Al Hydroxide/Mg Hydroxide (Mylanta II) 30 ml Q6H PRN ORAL dyspepsia 05/06/17 14:45 06/05/17 14:44 Albuterol/ Ipratropium (Albuterol/ Ipratropium) 3 ml Q4H PRN HHN Shortness of Breath 05/06/17 14:45 05/11/17 14:44 Clonidine HCl (Catapres Tab) 0.1 mg Q4H PRN ORAL For High Blood Pressure 05/06/17 14:45 06/05/17 14:44 Dextrose (Dextrose 50%) STAT PRN IV Hypoglycemia 05/06/17 14:45 06/05/17 14:44 Heparin Sodium (Porcine) (Heparin 5000 units/ml) 5,000 units EVERY 12 HOURS SUBQ 05/06/17 21:00 06/05/17 20:59 05/07/17 10:30 Lorazepam (Ativan 2mg/ml 1ml) 0.5 mg Q4H PRN IV For Anxiety 05/06/17 14:45 05/13/17 14:44 Morphine Sulfate (Morphine Sulfate) 1 mg Q4H PRN IVP For Pain 7-10 05/07/17 14:00 05/13/17 14:44 Nitroglycerin (Ntg) 0.4 mg Q5M X 3 DOSES PRN SL Prn Chest Pain 05/06/17 14:45 06/05/17 14:44 Ondansetron HCl (Zofran) 4 mg Q6H PRN IVP Nausea & Vomiting 05/06/17 14:45 06/05/17 14:44 Polyethylene Glycol (Miralax) 17 gm HSPRN PRN ORAL Constipation 05/06/17 14:45 06/05/17 14:44 Sodium Chloride 1,000 ml @ 75 mls/hr [id number] IV 05/06/17 22:30 06/05/17 22:29 05/07/17 14:07 Temazepam (Restoril) 15 mg HSPRN PRN ORAL Insomnia 05/06/17 14:45 05/13/17 14:44 05/06/17 23:47 Assessment/Plan Assessment/Plan ASSESSMENT Syncopal episode ( prob due to anti-HTN medication and dehydration) Acute hypo Na (likely due to diuretic) JAKY (possibly due to dehydration~ and diuretic) HTN COPD L hip pain (after fall) Hx of CVA PLAN OF CARE Tele hold all anti HTN hold diuretic IVF with NS orthostatic VS O2 HN prn cardio follows ECHO Fall precautions PT/OT O2 HHN prn X ray L hip no fracture~ pain management DVT prophylaxis Monitor renal parameters correct lytes as needed, avoid nephrotoxic case discussed and evaluated by supervising physician [facility]Isela NP May 07, 2017 16:09
--- NOTE | 2017-05-07 18:42 | History & Physical ---
History and Physical History & Physicial Dictated for Int Med-Dr Enrique no. [id number]. CHRISTY RDZ May 07, 2017 18:42
[2017-05-07 18:58] LABS: APPEARANCE,URINE CLEAR; BILIRUBIN, URINE NEGATIVE (NEGATIVE); COLOR,URINE PALE YELLOW; GLUCOSE, URINE (UA) NEGATIVE (NEGATIVE); KETONES,URINE NEGATIVE (NEGATIVE); LEUKOCYTE ESTERASE ,URINE 2+ (NEGATIVE); NITRITE,URINE NEGATIVE (NEGATIVE); PH,URINE 8 (4.5-8.0); PROTEIN,URINE NEGATIVE (NEGATIVE); UROBILINOGEN,URINE NORMAL MG/DL (0.0-1.0)
--- NOTE | 2017-05-07 19:05 | Cardiology Progress Note ---
Assessment/Plan Assessment/Plan 1. Syncopal episode. 2. History of hypertension. 3. Recent upper respiratory tract infection. 4. Hypotension. 5. Hyponatremia. doing better still has sig hip pain keep off iurtic watch o tele off bp med until bp increases then resume clonidine to avoid rebound htn but at a lower dose may need further evalution of hip pain Subjective Cardiovascular: Denies: chest pain, irregular heart rate, lightheadedness, palpitations Respiratory: Denies: shortness of breath Gastrointestinal/Abdominal: Denies: abdomen distended Genitourinary: Denies: burning Objective Last 24 Hour Vital Signs Date Time Temp Pulse Resp B/P (MAP) Pulse Ox O2 Delivery O2 Flow Rate FiO2 05/07/17 16:00 98.5 78 18 131/74 99 Room Air 05/07/17 16:00 72 05/07/17 12:00 98.2 74 18 121/74 100 Room Air 05/07/17 12:00 81 05/07/17 08:00 81 05/07/17 08:00 97.4 86 18 124/63 96 Room Air 05/07/17 04:00 72 05/07/17 04:00 97.7 70 20 108/65 98 Room Air 05/07/17 03:53 70 71 80 05/07/17 00:00 98.0 65 20 124/72 100 Room Air 05/07/17 00:00 56 05/06/17 19:58 98.0 05/06/17 19:40 98.0 77 20 96/54 100 Room Air 98.0 05/06/17 19:30 77 20 96/54 100 Room Air General Appearance: alert Cardiovascular: normal rate, regular rhythm Respiratory/Chest: lungs clear, normal breath sounds Abdomen: normal bowel sounds, non tender, soft Extremities: no swelling Intake and Output 05/06/17 05/07/17 19:00 07:00 Intake Total 1000 ml Output Total 200 ml Balance 1000 ml -200 ml Intake Oral 0 ml IV Total 1000 ml Output Urine Total 200 ml # Bowel Movements 2 Laboratory Tests Test 05/07/17 06:20 05/07/17 18:20 White Blood Count 6.1 K/UL (4.8-10.8) # Red Blood Count 2.89 M/UL (4.20-5.40) L Hemoglobin 9.8 G/DL (12.0-16.0) L Hematocrit 28.1 % (37.0-47.0) L Mean Corpuscular Volume 97 FL (80-99) Mean Corpuscular Hemoglobin 33.9 PG (27.0-31.0) H Mean Corpuscular Hemoglobin Concent 34.9 G/DL (32.0-36.0) Red Cell Distribution Width 11.3 % (11.6-14.8) L Platelet Count 218 K/UL (150-450) Mean Platelet Volume 6.5 FL (6.5-10.1) Neutrophils (%) (Auto) 61.7 % (45.0-75.0) Lymphocytes (%) (Auto) 25.0 % (20.0-45.0) Monocytes (%) (Auto) 10.1 % (1.0-10.0) H Eosinophils (%) (Auto) 2.2 % (0.0-3.0) Basophils (%) (Auto) 1.0 % (0.0-2.0) Prothrombin Time 9.7 SEC (9.30-11.50) Prothromb Time International Ratio 0.9 (0.9-1.1) Activated Partial Thromboplast Time 28 SEC (23-33) Sodium Level 131 MMOL/L (136-145) L Potassium Level 4.4 MMOL/L (3.5-5.1) Chloride Level 101 MMOL/L (98-107) Carbon Dioxide Level 22 MMOL/L (21-32) Anion Gap 8 mmol/L (5-15) Blood Urea Nitrogen 16 mg/dL (7-18) Creatinine 1.2 MG/DL (0.55-1.30) Estimat Glomerular Filtration Rate 53.9 mL/min (>60) Glucose Level 89 MG/DL (74-106) Calcium Level 8.2 MG/DL (8.5-10.1) L Total Bilirubin 0.5 MG/DL (0.2-1.0) Aspartate Amino Transf (AST/SGOT) 13 U/L (15-37) L Alanine Aminotransferase (ALT/SGPT) 28 U/L (12-78) Alkaline Phosphatase 75 U/L (46-116) Total Protein 6.6 G/DL (6.4-8.2) Albumin 2.9 G/DL (3.4-5.0) L Globulin 3.7 g/dL Albumin/Globulin Ratio 0.8 (1.0-2.7) L Triglycerides Level 52 MG/DL (30-150) Cholesterol Level 151 MG/DL (< 200) LDL Cholesterol 81 mg/dL (<100) HDL Cholesterol 67 MG/DL (40-60) H Cholesterol/HDL Ratio 2.3 (3.3-4.4) L Thyroid Stimulating Hormone (TSH) 1.625 uiU/mL (0.358-3.740) Urine Color Pale yellow Urine Appearance Clear Urine pH 8 (4.5-8.0) Urine Specific [place] 1.010 (1.005-1.035) Urine Protein Negative (NEGATIVE) Urine Glucose (UA) Negative (NEGATIVE) Urine Ketones Negative (NEGATIVE) Urine Occult Blood 2+ (NEGATIVE) H Urine Nitrite Negative (NEGATIVE) Urine Bilirubin Negative (NEGATIVE) Urine Urobilinogen Normal MG/DL (0.0-1.0) Urine Leukocyte Esterase 2+ (NEGATIVE) H Urine RBC Pending Urine WBC Pending Urine Squamous Epithelial Cells Pending Urine Bacteria Pending REJI SALDANA May 07, 2017 19:05
[2017-05-07 20:00] VITALS: BP 154/83
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
[2017-05-08] VITALS: BP 167/86
[2017-05-08 04:00] VITALS: BP 163/90
[2017-05-08 07:29] LABS: HEMATOCRIT 27.6 % (37.0-47.0); HEMOGLOBIN 9.9 G/DL (12.0-16.0); LYMPHOCYTES % (AUTO) 23.3 % (20.0-45.0); MEAN CORPUSCULAR VOLUME 96 FL (80-99); MONOCYTES % (AUTO) 9.2 % (1.0-10.0); NEUTROPHILS % (AUTO) 63.6 % (45.0-75.0); PLATELET COUNT 210 K/UL (150-450); RED BLOOD COUNT 2.88 M/UL (4.20-5.40); RED CELL DISTRIBUTION WIDTH 11.1 % (11.6-14.8); WHITE BLOOD COUNT 6.2 K/UL (4.8-10.8)
[2017-05-08 08:00] VITALS: BP 162/85
[2017-05-08 08:01] LABS: BLOOD UREA NITROGEN 10 mg/dL (7-18); CALCIUM 8.6 MG/DL (8.5-10.1); CHLORIDE 103 MMOL/L (98-107); SODIUM 134 MMOL/L (136-145)
[2017-05-08 08:05] LABS: % IRON SATURATION 20 % (15-50); IRON 49 ug/dL (50-175); TOTAL IRON BINDING CAPACITY 242 ug/dL (250-450)
[2017-05-08 08:24] LABS: ANION GAP 11 mmol/L (5-15); CARBON DIOXIDE 20 MMOL/L (21-32); CREATININE 0.9 MG/DL (0.55-1.30); FERRITIN 393 NG/ML (8-388)
[2017-05-08] MEDS: Heparin 5000 units/ml inj SUBQ SCH ×2 (08:56→21:00)
[2017-05-08] MEDS: Morphine Sulfate 4mg/ml Inj IVP PRN ×3 (10:33→22:24)
[2017-05-08 11:35] VITALS: BP_SYST 126; BP_SYST 138; BP_SYST 149; BP_DIAS 74; BP_DIAS 85; BP_DIAS 86
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
--- NOTE | 2017-05-08 12:22 | Pulmonology Progress Note ---
Assessment/Plan Assessment/Plan ASSESSMENT Syncopal episode ( prob due to antiHTN medication and dehydration) Acute hypoNa (likely due to diuretic) JAKY (possibly due to dehydration~ and diuretic) HTN COPD L hip pain (after fall) Hx of CVA anemia PLAN OF CARE Tele hold all anti HTN hold diuretic IVF with NS orthostatic VS this am -with small changes, but no significant, O2 HN prn cardio follows ECHO Fall precautions PT/OT O2 HHN prn X ray L hip no fracture get CT L hip r/o acute occult fracture pain management DVT prophylaxis Monitor renal parameters correct lytes as needed, avoid nephrotoxic monitor HH, anemia w/up c/w anemia of chronic disease may need short term rehab case discussed and evaluated by supervising physician Subjective Allergies: Coded Allergies: No Known Allergies (Verified Allergy, Unknown, 12/19/05) Subjective reports dizziness, no CP no SOB orthostatic with some changes, but not significant c/o severe excruciating pain L hip Objective Last 24 Hour Vital Signs Date Time Temp Pulse Resp B/P (MAP) Pulse Ox O2 Delivery O2 Flow Rate FiO2 05/08/17 11:35 75 138/86 71 149/74 84 126/85 05/08/17 11:03 97.1 05/08/17 10:33 97.1 05/08/17 08:57 162/85 05/08/17 08:00 97.1 81 19 162/85 100 Room Air 05/08/17 08:00 78 05/08/17 04:00 77 05/08/17 04:00 98.1 85 20 163/90 99 05/08/17 00:00 97.0 69 18 167/86 99 05/08/17 00:00 74 05/07/17 20:00 97.7 79 18 154/83 97 05/07/17 20:00 77 05/07/17 16:00 98.5 78 18 131/74 99 Room Air 05/07/17 16:00 72 Intake and Output 05/07/17 05/08/17 19:00 07:00 Intake Total 720 ml Output Total 800 ml Balance 720 ml -800 ml Intake Oral 720 ml Stool Total 800 ml # Voids 2 Objective General Appearance: no acute distress HEENT: normocephalic, atraumatic, anicteric, mucous membranes moist, PERRL Respiratory/Chest: chest wall non-tender, lungs clear, normal breath sounds, no respiratory distress, no accessory muscle use Cardiovascular: normal peripheral pulses, normal rate, regular rhythm - SR on tele Abdomen: normal bowel sounds, soft, non tender Extremities: no edema Neurologic/Psychiatric: alert, oriented x 3, responsive Musculoskeletal: normal muscle bulk Microbiology Date/Time Source Procedure Growth Status 05/06/17 20:00 Nasal Nares MRSA Culture - Final NO METHICILLIN RESISTANT STAPH AUREUS... Complete 05/06/17 20:00 Rectum VRE Culture - Final NO VANCOMYCIN RESISTANT ENTEROCOCCUS ... Complete Laboratory Tests 05/07/17 18:20: Urine Color Pale yellow, Urine Appearance Clear, Urine pH 8, Urine Specific [place] 1.010, Urine Protein Negative, Urine Glucose (UA) Negative, Urine Ketones Negative, Urine Occult Blood 2+H, Urine Nitrite Negative, Urine Bilirubin Negative, Urine Urobilinogen Normal, Urine Leukocyte Esterase 2+H, Urine RBC 0-2, Urine WBC 0-2, Urine Squamous Epithelial Cells ModerateH, Urine Bacteria Occasional 05/08/17 06:40: White Blood Count 6.2, Red Blood Count 2.88L, Hemoglobin 9.9L, Hematocrit 27.6L , Mean Corpuscular Volume 96, Mean Corpuscular Hemoglobin 34.4H, Mean Corpuscular Hemoglobin Concent 36.0, Red Cell Distribution Width 11.1L, Platelet Count 210, Mean Platelet Volume 6.5, Neutrophils (%) (Auto) 63.6, Lymphocytes (%) (Auto) 23.3, Monocytes (%) (Auto) 9.2, Eosinophils (%) (Auto) 3.0, Basophils (%) (Auto) 1.0, Sodium Level 134L, Potassium Level 4.0, Chloride Level 103, Carbon Dioxide Level 20L, Anion Gap 11, Blood Urea Nitrogen 10, Creatinine 0.9, Estimat Glomerular Filtration Rate > 60, Glucose Level 83, Calcium Level 8.6, Iron Level 49L, Total Iron Binding Capacity 242L, Percent Iron Saturation 20, Unsaturated Iron Binding 193, Ferritin 393H, Troponin I 0.000, Vitamin B12 Level 447, Folate 13.9 Current Medications Medications (Trade) Dose Ordered Sig/Oumar Route PRN Reason Start Time Stop Time Status Last Admin Dose Admin Acetaminophen (Tylenol) 650 mg Q4H PRN ORAL fever (temp>100.5F)/headache 05/07/17 15:45 06/06/17 15:44 05/07/17 17:01 Al Hydroxide/Mg Hydroxide (Mylanta II) 30 ml Q6H PRN ORAL dyspepsia 05/06/17 14:45 06/05/17 14:44 Albuterol/ Ipratropium (Albuterol/ Ipratropium) 3 ml Q4H PRN HHN Shortness of Breath 05/06/17 14:45 05/11/17 14:44 Clonidine HCl (Catapres Tab) 0.1 mg Q4H PRN ORAL For High Blood Pressure 05/06/17 14:45 06/05/17 14:44 05/08/17 08:57 Dextrose (Dextrose 50%) STAT PRN IV Hypoglycemia 05/06/17 14:45 06/05/17 14:44 Heparin Sodium (Porcine) (Heparin 5000 units/ml) 5,000 units EVERY 12 HOURS SUBQ 05/06/17 21:00 06/05/17 20:59 05/08/17 08:56 Lorazepam (Ativan 2mg/ml 1ml) 0.5 mg Q4H PRN IV For Anxiety 05/06/17 14:45 05/13/17 14:44 Morphine Sulfate (Morphine Sulfate) 1 mg Q4H PRN IVP For Pain 7-10 05/07/17 14:00 05/13/17 14:44 05/08/17 10:33 Nitroglycerin (Ntg) 0.4 mg Q5M X 3 DOSES PRN SL Prn Chest Pain 05/06/17 14:45 06/05/17 14:44 Ondansetron HCl (Zofran) 4 mg Q6H PRN IVP Nausea & Vomiting 05/06/17 14:45 06/05/17 14:44 Polyethylene Glycol (Miralax) 17 gm HSPRN PRN ORAL Constipation 05/06/17 14:45 06/05/17 14:44 Sodium Chloride 1,000 ml @ 75 mls/hr [id number] IV 05/06/17 22:30 06/05/17 22:29 05/08/17 01:10 Temazepam (Restoril) 15 mg HSPRN PRN ORAL Insomnia 05/06/17 14:45 05/13/17 14:44 05/06/17 23:47 Crawford (Vanchtein),Isela ACUNA May 08, 2017 12:22
--- NOTE | 2017-05-08 15:06 | Cardiology Progress Note ---
Assessment/Plan Assessment/Plan 1. Syncopal episode. 2. History of hypertension. 3. Recent upper respiratory tract infection. 4. Hypotension. 5. Hyponatremia. doing better still has sig hip pain keep off diuretic tele neg may need further evalution of hip pain heplock iv start on clonidine po for now to prevent rebound htn will add otehr agent as needed but keep of dailuy diuretics tele neg Subjective Cardiovascular: Denies: chest pain, lightheadedness, palpitations Respiratory: Denies: shortness of breath Gastrointestinal/Abdominal: Denies: abdominal pain Genitourinary: Denies: burning Subjective pelvi and hip pain Objective Last 24 Hour Vital Signs Date Time Temp Pulse Resp B/P (MAP) Pulse Ox O2 Delivery O2 Flow Rate FiO2 05/08/17 12:00 68 05/08/17 11:35 75 138/86 71 149/74 84 126/85 05/08/17 11:03 97.1 05/08/17 10:33 97.1 05/08/17 08:57 162/85 05/08/17 08:00 97.1 81 19 162/85 100 Room Air 05/08/17 08:00 78 05/08/17 04:00 77 05/08/17 04:00 98.1 85 20 163/90 99 05/08/17 00:00 97.0 69 18 167/86 99 05/08/17 00:00 74 05/07/17 20:00 97.7 79 18 154/83 97 05/07/17 20:00 77 05/07/17 16:00 98.5 78 18 131/74 99 Room Air 05/07/17 16:00 72 General Appearance: alert Neck: supple Cardiovascular: normal rate, regular rhythm Respiratory/Chest: lungs clear, normal breath sounds Abdomen: normal bowel sounds, non tender, soft Extremities: no swelling Intake and Output 05/07/17 05/08/17 19:00 07:00 Intake Total 720 ml Output Total 800 ml Balance 720 ml -800 ml Intake Oral 720 ml Stool Total 800 ml # Voids 2 Laboratory Tests Test 05/07/17 18:20 05/08/17 06:40 Urine Color Pale yellow Urine Appearance Clear Urine pH 8 (4.5-8.0) Urine Specific [place] 1.010 (1.005-1.035) Urine Protein Negative (NEGATIVE) Urine Glucose (UA) Negative (NEGATIVE) Urine Ketones Negative (NEGATIVE) Urine Occult Blood 2+ (NEGATIVE) H Urine Nitrite Negative (NEGATIVE) Urine Bilirubin Negative (NEGATIVE) Urine Urobilinogen Normal MG/DL (0.0-1.0) Urine Leukocyte Esterase 2+ (NEGATIVE) H Urine RBC 0-2 /HPF (0 - 2) Urine WBC 0-2 /HPF (0 - 2) Urine Squamous Epithelial Cells Moderate /LPF (NONE/OCC) H Urine Bacteria Occasional /HPF (NONE) White Blood Count 6.2 K/UL (4.8-10.8) Red Blood Count 2.88 M/UL (4.20-5.40) L Hemoglobin 9.9 G/DL (12.0-16.0) L Hematocrit 27.6 % (37.0-47.0) L Mean Corpuscular Volume 96 FL (80-99) Mean Corpuscular Hemoglobin 34.4 PG (27.0-31.0) H Mean Corpuscular Hemoglobin Concent 36.0 G/DL (32.0-36.0) Red Cell Distribution Width 11.1 % (11.6-14.8) L Platelet Count 210 K/UL (150-450) Mean Platelet Volume 6.5 FL (6.5-10.1) Neutrophils (%) (Auto) 63.6 % (45.0-75.0) Lymphocytes (%) (Auto) 23.3 % (20.0-45.0) Monocytes (%) (Auto) 9.2 % (1.0-10.0) Eosinophils (%) (Auto) 3.0 % (0.0-3.0) Basophils (%) (Auto) 1.0 % (0.0-2.0) Sodium Level 134 MMOL/L (136-145) L Potassium Level 4.0 MMOL/L (3.5-5.1) Chloride Level 103 MMOL/L (98-107) Carbon Dioxide Level 20 MMOL/L (21-32) L Anion Gap 11 mmol/L (5-15) Blood Urea Nitrogen 10 mg/dL (7-18) Creatinine 0.9 MG/DL (0.55-1.30) Estimat Glomerular Filtration Rate > 60 mL/min (>60) Glucose Level 83 MG/DL (74-106) Calcium Level 8.6 MG/DL (8.5-10.1) Iron Level 49 ug/dL (50-175) L Total Iron Binding Capacity 242 ug/dL (250-450) L Percent Iron Saturation 20 % (15-50) Unsaturated Iron Binding 193 ug/dL (112-346) Ferritin 393 NG/ML (8-388) H Troponin I 0.000 ng/mL (0.000-0.056) Vitamin B12 Level 447 PG/ML (193-986) Folate 13.9 NG/ML (8.6-58.9) Microbiology Date/Time Source Procedure Growth Status 05/06/17 20:00 Nasal Nares MRSA Culture - Final NO METHICILLIN RESISTANT STAPH AUREUS... Complete 05/06/17 20:00 Rectum VRE Culture - Final NO VANCOMYCIN RESISTANT ENTEROCOCCUS ... Complete REJI SALDANA May 08, 2017 15:06
[2017-05-08 15:53] VITALS: BP 141/74
[2017-05-08 20:00] VITALS: BP 136/82
[2017-05-08] MEDS: Miralax 17gm pkt ORAL PRN (22:30)
[2017-05-09] VITALS (7 sets, daily range): BP systolic 107–161; BP diastolic 71–92
[2017-05-09 06:19] LABS: BASOPHILS % (AUTO) 1.1 % (0.0-2.0); EOSINOPHILS % (AUTO) 5.1 % (0.0-3.0); HEMATOCRIT 25.6 % (37.0-47.0); LYMPHOCYTES % (AUTO) 29.6 % (20.0-45.0); MEAN CORPUSCULAR VOLUME 96 FL (80-99); MONOCYTES % (AUTO) 10.8 % (1.0-10.0); NEUTROPHILS % (AUTO) 53.4 % (45.0-75.0); PLATELET COUNT 188 K/UL (150-450); RED BLOOD COUNT 2.66 M/UL (4.20-5.40); RED CELL DISTRIBUTION WIDTH 11.4 % (11.6-14.8); WHITE BLOOD COUNT 5.6 K/UL (4.8-10.8)
[2017-05-09 06:37] LABS: ANION GAP 8 mmol/L (5-15); BLOOD UREA NITROGEN 11 mg/dL (7-18); CALCIUM 8.4 MG/DL (8.5-10.1); CARBON DIOXIDE 21 MMOL/L (21-32); CHLORIDE 104 MMOL/L (98-107); CREATININE 0.8 MG/DL (0.55-1.30); POTASSIUM 4.5 MMOL/L (3.5-5.1); SODIUM 132 MMOL/L (136-145)
[2017-05-09] MEDS: Miralax 17gm pkt ORAL PRN (08:32)
[2017-05-09] MEDS: Morphine Sulfate 4mg/ml Inj IVP PRN ×3 (08:33→20:53)
[2017-05-09] MEDS: Heparin 5000 units/ml inj SUBQ SCH ×2 (08:35→20:41)
--- NOTE | 2017-05-09 10:28 | Diagnostic Imaging Report ---
Indication: Hip pain Technique: continuous helical imaging in the transaxial plane was performed from the iliac crests to the pubic symphysis with attention to the left hip. Coronal 2-D reformatted images were also generated. Study obtained in a Siemens Sensation [address] total DLP: 284.14 mGycm CTD/vol: 8.95 mGy Comparison: None Findings: There is no evidence of an acute fracture or significant malalignment identified on this examination. Aorta is calcified. There are spurs involving the left hip joint at the joint margin. Bones are slightly osteopenic. Diverticula noted within the colon. IMPRESSION: No acute injury identified. [facility] has communicated the preliminary results to the Emergency Department. Their findings are largely concordant with this report. The CT scanner at [facility] is accredited by the [employer] [employer] and the scans are performed using dose optimization techniques as appropriate to a performed exam including Automatic Exposure control.
--- NOTE | 2017-05-09 11:38 | Cardiology Progress Note ---
Assessment/Plan Assessment/Plan 1. Syncopal episode. 2. History of hypertension. 3. Recent upper respiratory tract infection. 4. Hypotension. 5. Hyponatremia. doing better still has sig hip pain keep off diuretic tele neg hip ct neg for fx heplock iv start on clonidine po for now to prevent rebound htn will add otehr agent as needed but keep off daily diuretics dc planning need to be seen soon after dc to adjust bp meds to avoid readmission she has her own cardiologsit ([facility]) at this point bp is fine just on sandra clonidine off allother p meds avoid sudden dc of clinidien as may cuse rebound htn Subjective Cardiovascular: Denies: chest pain, lightheadedness, palpitations Respiratory: Denies: shortness of breath Genitourinary: Denies: burning Subjective pelvi and hip pain Objective Last 24 Hour Vital Signs Date Time Temp Pulse Resp B/P (MAP) Pulse Ox O2 Delivery O2 Flow Rate FiO2 05/09/17 08:00 97.3 71 16 139/80 100 05/09/17 08:00 72 05/09/17 06:29 145/78 05/09/17 04:00 97.0 65 16 145/78 100 05/09/17 04:00 61 05/09/17 00:00 98.1 69 16 134/78 98 05/09/17 00:00 64 05/08/17 22:23 136/82 05/08/17 20:00 97.7 70 16 136/82 99 05/08/17 20:00 71 05/08/17 19:04 98.7 05/08/17 18:34 98.7 05/08/17 16:15 141/74 05/08/17 16:00 90 05/08/17 15:53 98.7 77 18 141/74 100 Room Air 77 05/08/17 12:00 68 General Appearance: alert Neck: supple Cardiovascular: normal rate, regular rhythm Respiratory/Chest: lungs clear, normal breath sounds Abdomen: normal bowel sounds, non tender, soft Extremities: no swelling Intake and Output 05/08/17 05/09/17 19:00 07:00 Intake Total 690 ml 240 ml Balance 690 ml 240 ml Intake Oral 690 ml 240 ml # Voids 1 Laboratory Tests Test 05/09/17 05:50 White Blood Count 5.6 K/UL (4.8-10.8) Red Blood Count 2.66 M/UL (4.20-5.40) L Hemoglobin 9.0 G/DL (12.0-16.0) L Hematocrit 25.6 % (37.0-47.0) L Mean Corpuscular Volume 96 FL (80-99) Mean Corpuscular Hemoglobin 33.8 PG (27.0-31.0) H Mean Corpuscular Hemoglobin Concent 35.2 G/DL (32.0-36.0) Red Cell Distribution Width 11.4 % (11.6-14.8) L Platelet Count 188 K/UL (150-450) Mean Platelet Volume 6.4 FL (6.5-10.1) L Neutrophils (%) (Auto) 53.4 % (45.0-75.0) Lymphocytes (%) (Auto) 29.6 % (20.0-45.0) Monocytes (%) (Auto) 10.8 % (1.0-10.0) H Eosinophils (%) (Auto) 5.1 % (0.0-3.0) H Basophils (%) (Auto) 1.1 % (0.0-2.0) Sodium Level 132 MMOL/L (136-145) L Potassium Level 4.5 MMOL/L (3.5-5.1) Chloride Level 104 MMOL/L (98-107) Carbon Dioxide Level 21 MMOL/L (21-32) Anion Gap 8 mmol/L (5-15) Blood Urea Nitrogen 11 mg/dL (7-18) Creatinine 0.8 MG/DL (0.55-1.30) Estimat Glomerular Filtration Rate > 60 mL/min (>60) Glucose Level 89 MG/DL (74-106) Calcium Level 8.4 MG/DL (8.5-10.1) L Microbiology Date/Time Source Procedure Growth Status 05/06/17 20:00 Nasal Nares MRSA Culture - Final NO METHICILLIN RESISTANT STAPH AUREUS... Complete 05/06/17 20:00 Rectum VRE Culture - Final NO VANCOMYCIN RESISTANT ENTEROCOCCUS ... Complete REJI SALDANA May 09, 2017 11:38
--- NOTE | 2017-05-09 11:48 | Pulmonology Progress Note ---
Assessment/Plan Assessment/Plan ASSESSMENT Syncopal episode ( prob due to antiHTN medication and dehydration) Acute hypoNa (likely due to diuretic) JAKY (possibly due to dehydration~ and diuretic) HTN COPD L hip pain (after fall) Hx of CVA anemia PLAN OF CARE BP now OK started on Clonidine as per cardio hold other anti HTN for now hold diuretic IVF orthostatic VS -with small changes, but no significant, dizziness resovled O2 HHN prn cardio follows ECHO Fall precautions PT/OT X ray L hip no fracture CT L hip no fracture pain management PT/OT DVT prophylaxis Monitor renal parameters correct lytes as needed, avoid nephrotoxic monitor HH, anemia w/up c/w anemia of chronic disease may need short term rehab wants to go home, strong family support dc plan for tomorrow home with [facility] for PT and fup with cardio this coming week cardio eval and recs greatly appreciated case discussed and evaluated by supervising physician Subjective Allergies: Coded Allergies: No Known Allergies (Verified Allergy, Unknown, 12/19/05) Subjective no dizziness, no CP no SOB orthostatic with some changes, but not significant still significant pain L hip CT hip negative for fx working with Pt and was OOB yesterday Objective Last 24 Hour Vital Signs Date Time Temp Pulse Resp B/P (MAP) Pulse Ox O2 Delivery O2 Flow Rate FiO2 05/09/17 08:00 97.3 71 16 139/80 100 05/09/17 08:00 72 05/09/17 06:29 145/78 05/09/17 04:00 97.0 65 16 145/78 100 05/09/17 04:00 61 05/09/17 00:00 98.1 69 16 134/78 98 05/09/17 00:00 64 05/08/17 22:23 136/82 05/08/17 20:00 97.7 70 16 136/82 99 05/08/17 20:00 71 05/08/17 19:04 98.7 05/08/17 18:34 98.7 05/08/17 16:15 141/74 05/08/17 16:00 90 05/08/17 15:53 98.7 77 18 141/74 100 Room Air 77 05/08/17 12:00 68 Intake and Output 05/08/17 05/09/17 19:00 07:00 Intake Total 690 ml 240 ml Balance 690 ml 240 ml Intake Oral 690 ml 240 ml # Voids 1 Objective General Appearance: no acute distress HEENT: normocephalic, atraumatic, anicteric, mucous membranes moist, PERRL Respiratory/Chest: chest wall non-tender, lungs clear, normal breath sounds, no respiratory distress, no accessory muscle use Cardiovascular: normal peripheral pulses, normal rate, regular rhythm - SR on tele Abdomen: normal bowel sounds, soft, non tender Extremities: no edema Neurologic/Psychiatric: alert, oriented x 3, responsive Musculoskeletal: normal muscle bulk Microbiology Date/Time Source Procedure Growth Status 05/06/17 20:00 Nasal Nares MRSA Culture - Final NO METHICILLIN RESISTANT STAPH AUREUS... Complete 05/06/17 20:00 Rectum VRE Culture - Final NO VANCOMYCIN RESISTANT ENTEROCOCCUS ... Complete Laboratory Tests 05/09/17 05:50: White Blood Count 5.6, Red Blood Count 2.66L, Hemoglobin 9.0L, Hematocrit 25.6L , Mean Corpuscular Volume 96, Mean Corpuscular Hemoglobin 33.8H, Mean Corpuscular Hemoglobin Concent 35.2, Red Cell Distribution Width 11.4L, Platelet Count 188, Mean Platelet Volume 6.4L, Neutrophils (%) (Auto) 53.4, Lymphocytes (%) (Auto) 29.6, Monocytes (%) (Auto) 10.8H, Eosinophils (%) (Auto) 5.1H, Basophils (%) (Auto) 1.1, Sodium Level 132L, Potassium Level 4.5, Chloride Level 104, Carbon Dioxide Level 21, Anion Gap 8, Blood Urea Nitrogen 11 , Creatinine 0.8, Estimat Glomerular Filtration Rate > 60, Glucose Level 89, Calcium Level 8.4L Current Medications Medications (Trade) Dose Ordered Sig/Oumar Route PRN Reason Start Time Stop Time Status Last Admin Dose Admin Acetaminophen (Tylenol) 650 mg Q4H PRN ORAL fever (temp>100.5F)/headache 05/07/17 15:45 06/06/17 15:44 05/07/17 17:01 Al Hydroxide/Mg Hydroxide (Mylanta II) 30 ml Q6H PRN ORAL dyspepsia 05/06/17 14:45 06/05/17 14:44 Albuterol/ Ipratropium (Albuterol/ Ipratropium) 3 ml Q4H PRN HHN Shortness of Breath 05/06/17 14:45 05/11/17 14:44 Clonidine HCl (Catapres Tab) 0.1 mg EVERY 8 HOURS ORAL 05/08/17 16:00 06/07/17 15:59 05/09/17 06:29 Clonidine HCl (Catapres Tab) 0.1 mg Q4H PRN ORAL For High Blood Pressure 05/06/17 14:45 06/05/17 14:44 05/08/17 08:57 Dextrose (Dextrose 50%) STAT PRN IV Hypoglycemia 05/06/17 14:45 06/05/17 14:44 Heparin Sodium (Porcine) (Heparin 5000 units/ml) 5,000 units EVERY 12 HOURS SUBQ 05/06/17 21:00 06/05/17 20:59 05/09/17 08:35 Lorazepam (Ativan 2mg/ml 1ml) 0.5 mg Q4H PRN IV For Anxiety 05/06/17 14:45 05/13/17 14:44 Morphine Sulfate (Morphine Sulfate) 1 mg Q4H PRN IVP For Pain 7-10 05/07/17 14:00 05/13/17 14:44 05/09/17 08:33 Nitroglycerin (Ntg) 0.4 mg Q5M X 3 DOSES PRN SL Prn Chest Pain 05/06/17 14:45 06/05/17 14:44 Ondansetron HCl (Zofran) 4 mg Q6H PRN IVP Nausea & Vomiting 05/06/17 14:45 06/05/17 14:44 Polyethylene Glycol (Miralax) 17 gm HSPRN PRN ORAL Constipation 05/06/17 14:45 06/05/17 14:44 05/09/17 08:32 Temazepam (Restoril) 15 mg HSPRN PRN ORAL Insomnia 05/06/17 14:45 05/13/17 14:44 05/06/17 23:47 [facility] HospitalIsela Ojeda NP May 09, 2017 11:48
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
--- NOTE | 2017-05-09 21:29 | Wound Care Consultation ---
Wound Assessment Wound Assessment #1: Wound Number: 1 Wound Present on Admission: Yes New Wound: No Status Change of Wound: No Wound Location Body Site: sacral Wound Type: scar - scattered Haven Test: Does not Haven Wound Thickness: Partial Thickness Percent of Wound [place]/Red: 100 Wound Drainage Amount: None Wound Drainage Odor: None/Absent Tissue Surrounding Wound: Intact Wound General Appearance: Reddened Wound Assessment #2: Wound Number: 2 Wound Present on Admission: No New Wound: Yes Status Change of Wound: No Wound Location Body Site Modif: left Wound Location Body Site: other - forearm Wound Type: blister - open Haven Test: Does not Haven Wound Thickness: Partial Thickness Percent of Wound [place]/Red: 100 Wound Drainage Description: Serosanguineous Wound Drainage Amount: Scant Wound Drainage Odor: None/Absent Tissue Surrounding Wound: Intact Wound General Appearance: Reddened Wound Comment #1 Sacral and right buttocks area with scattered scar tissue from open blisters #2 Left open blister Recommendation -Local wound care per protocol -Offload both heels -Heel protector on both heels -Turn and reposition -Optimize nutrition -Assess and f/u accordingly for any changes GINO REHMAN RN May 09, 2017 21:28
[2017-05-10] VITALS: BP 157/90
[2017-05-10 04:00] VITALS: BP 141/84
[2017-05-10 07:42] LABS: BASOPHILS % (AUTO) 1.3 % (0.0-2.0); EOSINOPHILS % (AUTO) 5.8 % (0.0-3.0); HEMATOCRIT 27.5 % (37.0-47.0); HEMOGLOBIN 9.6 G/DL (12.0-16.0); LYMPHOCYTES % (AUTO) 30.6 % (20.0-45.0); MEAN CORPUSCULAR VOLUME 96 FL (80-99); MONOCYTES % (AUTO) 9.7 % (1.0-10.0); NEUTROPHILS % (AUTO) 52.6 % (45.0-75.0); PLATELET COUNT 215 K/UL (150-450); RED BLOOD COUNT 2.87 M/UL (4.20-5.40); RED CELL DISTRIBUTION WIDTH 10.8 % (11.6-14.8); WHITE BLOOD COUNT 5.5 K/UL (4.8-10.8)
[2017-05-10 07:50] LABS: ANION GAP 9 mmol/L (5-15); BLOOD UREA NITROGEN 10 mg/dL (7-18); CALCIUM 9.1 MG/DL (8.5-10.1); CARBON DIOXIDE 23 MMOL/L (21-32); CHLORIDE 100 MMOL/L (98-107); CREATININE 0.8 MG/DL (0.55-1.30); POTASSIUM 4.4 MMOL/L (3.5-5.1); SODIUM 132 MMOL/L (136-145)
[2017-05-10 08:00] VITALS: BP 139/83
[2017-05-10] MEDS: Heparin 5000 units/ml inj SUBQ SCH ×2 (09:51→21:29)
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
--- NOTE | 2017-05-10 10:47 | Pulmonology Progress Note ---
Assessment/Plan Assessment/Plan ASSESSMENT Syncopal episode ( prob due to antiHTN medication and dehydration) Acute hypoNa (likely due to diuretic) JAKY (possibly due to dehydration~ and diuretic) HTN COPD L hip pain (after fall) Hx of CVA anemia PLAN OF CARE BP now stable started on Clonidine as per cardio hold other anti HTN for now hold diuretic IVF orthostatic VS -with small changes, but no significant, dizziness resovled O2 HHN prn cardio follows ECHO Fall precautions PT/OT epr pT/OT doing much better dizziness resolved X ray L hip no fracture CT L hip no fracture pain management PT/OT DVT prophylaxis Monitor renal parameters correct lytes as needed, avoid nephrotoxic monitor HH, anemia w/up c/w anemia of chronic disease may need short term rehab wants to go home, strong family support dc plan for today with home with HHS for PT and fup with cardio this coming week cardio eval and recs greatly appreciated case discussed and evaluated by supervising physician Subjective Allergies: Coded Allergies: No Known Allergies (Verified Allergy, Unknown, 12/19/05) Subjective no dizziness, no CP no SOB CT hip negative for fx working with PT/OT - per therapists doing much better Objective Last 24 Hour Vital Signs Date Time Temp Pulse Resp B/P (MAP) Pulse Ox O2 Delivery O2 Flow Rate FiO2 05/10/17 09:49 69 139/83 05/10/17 08:00 69 05/10/17 08:00 97.9 93 18 139/83 98 Room Air 05/10/17 04:00 98.4 71 19 141/84 99 Room Air 05/10/17 04:00 69 05/10/17 00:00 97.9 72 19 157/90 97 Room Air 05/10/17 00:00 69 05/09/17 20:00 73 05/09/17 20:00 96.7 84 18 151/89 96 Room Air 05/09/17 17:30 97.3 74 18 151/78 100 05/09/17 17:12 69 161/92 05/09/17 16:00 97.3 69 18 161/92 100 05/09/17 16:00 67 05/09/17 12:00 96.7 65 20 143/71 99 05/09/17 12:00 71 Intake and Output 05/09/17 05/10/17 19:00 07:00 Intake Total 352 ml 120 ml Output Total 650 ml Balance 352 ml -530 ml Intake Oral 352 ml 120 ml Output Urine Total 650 ml # Voids 2 1 Objective General Appearance: no acute distress HEENT: normocephalic, atraumatic, anicteric, mucous membranes moist, PERRL Respiratory/Chest: chest wall non-tender, lungs clear, normal breath sounds, no respiratory distress, no accessory muscle use Cardiovascular: normal peripheral pulses, normal rate, regular rhythm - SR on tele Abdomen: normal bowel sounds, soft, non tender Extremities: no edema Neurologic/Psychiatric: alert, oriented x 3, responsive Musculoskeletal: normal muscle bulk Laboratory Tests 05/10/17 06:30: White Blood Count 5.5, Red Blood Count 2.87L, Hemoglobin 9.6L, Hematocrit 27.5L , Mean Corpuscular Volume 96, Mean Corpuscular Hemoglobin 33.4H, Mean Corpuscular Hemoglobin Concent 35.0, Red Cell Distribution Width 10.8L, Platelet Count 215, Mean Platelet Volume 7.1, Neutrophils (%) (Auto) 52.6, Lymphocytes (%) (Auto) 30.6, Monocytes (%) (Auto) 9.7, Eosinophils (%) (Auto) 5.8H, Basophils (%) (Auto) 1.3, Sodium Level 132L, Potassium Level 4.4, Chloride Level 100, Carbon Dioxide Level 23, Anion Gap 9, Blood Urea Nitrogen 10 , Creatinine 0.8, Estimat Glomerular Filtration Rate > 60, Glucose Level 92, Calcium Level 9.1 05/10/17 07:20: Stool Occult Blood Negative Current Medications Medications (Trade) Dose Ordered Sig/Oumar Route PRN Reason Start Time Stop Time Status Last Admin Dose Admin Acetaminophen (Tylenol) 650 mg Q4H PRN ORAL fever (temp>100.5F)/headache 05/07/17 15:45 06/06/17 15:44 05/07/17 17:01 Al Hydroxide/Mg Hydroxide (Mylanta II) 30 ml Q6H PRN ORAL dyspepsia 05/06/17 14:45 06/05/17 14:44 Albuterol/ Ipratropium (Albuterol/ Ipratropium) 3 ml Q4H PRN HHN Shortness of Breath 05/06/17 14:45 05/11/17 14:44 Amlodipine Besylate (Norvasc) 5 mg DAILY ORAL 05/09/17 18:00 06/08/17 17:59 05/10/17 09:49 Clonidine HCl (Catapres Tab) 0.1 mg Q4H PRN ORAL For High Blood Pressure 05/06/17 14:45 06/05/17 14:44 05/08/17 08:57 Dextrose (Dextrose 50%) STAT PRN IV Hypoglycemia 05/06/17 14:45 06/05/17 14:44 Heparin Sodium (Porcine) (Heparin 5000 units/ml) 5,000 units EVERY 12 HOURS SUBQ 05/06/17 21:00 06/05/17 20:59 05/10/17 09:51 Lorazepam (Ativan 2mg/ml 1ml) 0.5 mg Q4H PRN IV For Anxiety 05/06/17 14:45 05/13/17 14:44 Morphine Sulfate (Morphine Sulfate) 1 mg Q4H PRN IVP For Pain 7-10 05/07/17 14:00 05/13/17 14:44 05/09/17 20:53 Nitroglycerin (Ntg) 0.4 mg Q5M X 3 DOSES PRN SL Prn Chest Pain 05/06/17 14:45 06/05/17 14:44 Ondansetron HCl (Zofran) 4 mg Q6H PRN IVP Nausea & Vomiting 05/06/17 14:45 06/05/17 14:44 Polyethylene Glycol (Miralax) 17 gm HSPRN PRN ORAL Constipation 05/06/17 14:45 06/05/17 14:44 05/09/17 08:32 Temazepam (Restoril) 15 mg HSPRN PRN ORAL Insomnia 05/06/17 14:45 05/13/17 14:44 05/06/17 23:47 Ty ([facility])Isela NP May 10, 2017 10:47
[2017-05-10 12:00] VITALS: BP 141/75
--- NOTE | 2017-05-10 13:00 | Diagnostic Imaging Report ---
Indication: . Syncope with fall last Technique: sagittal T1 fast spin echo, axial T1 FLAIR, axial T2 FLAIR, axial T2 FS PROPELLER, axial T2* GRE, axial diffusion weighted images. ADC and exponential ADC maps generated Comparison: To 228 Findings: No abnormal areas of restricted diffusion to suggest acute infarction. No acute hemorrhage or edema. No mass effect nor midline shift. There is mild age-related enlargement of the ventricles and extra axial CSF spaces. There is periventricular deep white matter confluent and punctate low-attenuation, most likely chronic ischemic change. The vascular flow voids are preserved.. Visualized orbits and sinuses are unremarkable. When compared to prior exam, no significant interim change Impression: Chronic and age-related changes, as described Negative for acute intracranial bleed, mass effect, or infarct
--- NOTE | 2017-05-10 13:04 | Cardiac Electrophysiology PN ---
Subjective Subjective EP consult dictated. [id number] Objective Last 24 Hour Vital Signs Date Time Temp Pulse Resp B/P (MAP) Pulse Ox O2 Delivery O2 Flow Rate FiO2 05/10/17 12:00 97.7 72 18 141/75 05/10/17 12:00 72 05/10/17 09:49 69 139/83 05/10/17 08:00 69 05/10/17 08:00 97.9 93 18 139/83 98 Room Air 05/10/17 04:00 98.4 71 19 141/84 99 Room Air 05/10/17 04:00 69 05/10/17 00:00 97.9 72 19 157/90 97 Room Air 05/10/17 00:00 69 05/09/17 20:00 73 05/09/17 20:00 96.7 84 18 151/89 96 Room Air 05/09/17 17:30 97.3 74 18 151/78 100 05/09/17 17:12 69 161/92 05/09/17 16:00 97.3 69 18 161/92 100 05/09/17 16:00 67 Intake and Output 05/09/17 05/10/17 19:00 07:00 Intake Total 352 ml 120 ml Output Total 650 ml Balance 352 ml -530 ml Intake Oral 352 ml 120 ml Output Urine Total 650 ml # Voids 2 1 Laboratory Tests Test 05/10/17 06:30 05/10/17 07:20 White Blood Count 5.5 K/UL (4.8-10.8) Red Blood Count 2.87 M/UL (4.20-5.40) L Hemoglobin 9.6 G/DL (12.0-16.0) L Hematocrit 27.5 % (37.0-47.0) L Mean Corpuscular Volume 96 FL (80-99) Mean Corpuscular Hemoglobin 33.4 PG (27.0-31.0) H Mean Corpuscular Hemoglobin Concent 35.0 G/DL (32.0-36.0) Red Cell Distribution Width 10.8 % (11.6-14.8) L Platelet Count 215 K/UL (150-450) Mean Platelet Volume 7.1 FL (6.5-10.1) Neutrophils (%) (Auto) 52.6 % (45.0-75.0) Lymphocytes (%) (Auto) 30.6 % (20.0-45.0) Monocytes (%) (Auto) 9.7 % (1.0-10.0) Eosinophils (%) (Auto) 5.8 % (0.0-3.0) H Basophils (%) (Auto) 1.3 % (0.0-2.0) Sodium Level 132 MMOL/L (136-145) L Potassium Level 4.4 MMOL/L (3.5-5.1) Chloride Level 100 MMOL/L (98-107) Carbon Dioxide Level 23 MMOL/L (21-32) Anion Gap 9 mmol/L (5-15) Blood Urea Nitrogen 10 mg/dL (7-18) Creatinine 0.8 MG/DL (0.55-1.30) Estimat Glomerular Filtration Rate > 60 mL/min (>60) Glucose Level 92 MG/DL (74-106) Calcium Level 9.1 MG/DL (8.5-10.1) Stool Occult Blood Negative (NEGATIVE) FLIP HOPE May 10, 2017 13:04
[2017-05-10 16:00] VITALS: BP 139/72
--- NOTE | 2017-05-10 16:22 | Diagnostic Imaging Report ---
Indication: Hip pain since fall last Technique: Coronal and axial T1 fast spin echo, coronal and axial FSE IR images of the pelvis, coronal, sagittal, and oblique proton-density fat-saturated images of the left hip Comparison: Reference made to CT of the left hip dated 05/08/2017 Findings: There is decreased T1 and increased T2 signal on both sides of the pubic symphysis, consistent with nondisplaced microfractures. There is a single small focus of low T1 signal in the left inferior pubic ramus on the coronal T1-weighted images, image 12 of series 3. No definite corresponding T2 signal abnormality. There is increased T2 signal and subtle decreased T1 signal in the left side of the sacrum. Markedly increased T2 signal is seen within the bilateral pectineus and obturator externus muscles. There is also edema of the anterolateral inferior pelvic sidewalls. No evidence of hip fracture. No evidence of hematoma The included pelvic viscera are unremarkable. Impression: Positive for nondisplaced left sided sacral fracture Bilateral pubic symphyseal and left inferior pubic ramus fractures, nondisplaced High T2 signal in the bilateral pectineus and obturator externus muscles,, consistent with injury of these, presumably related to the bony trauma No evidence of left hip fracture Findings discussed by phone with Dr. Enrique at the time of interpretation
--- NOTE | 2017-05-10 19:44 | Cardiology Progress Note ---
Assessment/Plan Assessment/Plan 1. Syncopal episode. 2. History of hypertension. 3. Recent upper respiratory tract infection. 4. Hypotension. 5. Hyponatremia. 6. AV block prolonged RR interval doing better keep off diuretic after my visit yest tele showed episodes of block with 3-4 seconds rr interval so clonidien was dcd , d/w dr keita to see in ep consult hip ct neg for fx off ivf janusz did not show any further episode of av block of sig degree since episode yest pt has declined ppi awaiting 2nd opinion i have explained to pt the risk of recurrent syncope fall collapse and injury should block occur before she has pacemaker implantation , she indicated understanding her bp is fien on norvasc alone at this time avoid neg chronotropic agent home soon Subjective Cardiovascular: Denies: chest pain, irregular heart rate, lightheadedness, palpitations Respiratory: Denies: shortness of breath, SOB with excertion Gastrointestinal/Abdominal: Denies: abdominal pain Genitourinary: Denies: burning Subjective pelvi and hip pain Objective Last 24 Hour Vital Signs Date Time Temp Pulse Resp B/P (MAP) Pulse Ox O2 Delivery O2 Flow Rate FiO2 05/10/17 16:00 85 05/10/17 16:00 98.4 90 18 139/72 97 05/10/17 12:00 97.7 72 18 141/75 05/10/17 12:00 72 05/10/17 09:49 69 139/83 05/10/17 08:00 69 05/10/17 08:00 97.9 93 18 139/83 98 Room Air 05/10/17 04:00 98.4 71 19 141/84 99 Room Air 05/10/17 04:00 69 05/10/17 00:00 97.9 72 19 157/90 97 Room Air 05/10/17 00:00 69 05/09/17 20:00 73 05/09/17 20:00 96.7 84 18 151/89 96 Room Air General Appearance: alert Rhythm: NSR Cardiovascular: normal rate, regular rhythm Respiratory/Chest: lungs clear, normal breath sounds Abdomen: normal bowel sounds, non tender, soft Extremities: no swelling Intake and Output 05/09/17 05/10/17 19:00 07:00 Intake Total 352 ml 120 ml Output Total 650 ml Balance 352 ml -530 ml Intake Oral 352 ml 120 ml Output Urine Total 650 ml # Voids 2 1 Laboratory Tests Test 05/10/17 06:30 05/10/17 07:20 White Blood Count 5.5 K/UL (4.8-10.8) Red Blood Count 2.87 M/UL (4.20-5.40) L Hemoglobin 9.6 G/DL (12.0-16.0) L Hematocrit 27.5 % (37.0-47.0) L Mean Corpuscular Volume 96 FL (80-99) Mean Corpuscular Hemoglobin 33.4 PG (27.0-31.0) H Mean Corpuscular Hemoglobin Concent 35.0 G/DL (32.0-36.0) Red Cell Distribution Width 10.8 % (11.6-14.8) L Platelet Count 215 K/UL (150-450) Mean Platelet Volume 7.1 FL (6.5-10.1) Neutrophils (%) (Auto) 52.6 % (45.0-75.0) Lymphocytes (%) (Auto) 30.6 % (20.0-45.0) Monocytes (%) (Auto) 9.7 % (1.0-10.0) Eosinophils (%) (Auto) 5.8 % (0.0-3.0) H Basophils (%) (Auto) 1.3 % (0.0-2.0) Sodium Level 132 MMOL/L (136-145) L Potassium Level 4.4 MMOL/L (3.5-5.1) Chloride Level 100 MMOL/L (98-107) Carbon Dioxide Level 23 MMOL/L (21-32) Anion Gap 9 mmol/L (5-15) Blood Urea Nitrogen 10 mg/dL (7-18) Creatinine 0.8 MG/DL (0.55-1.30) Estimat Glomerular Filtration Rate > 60 mL/min (>60) Glucose Level 92 MG/DL (74-106) Calcium Level 9.1 MG/DL (8.5-10.1) Stool Occult Blood Negative (NEGATIVE) REJI SALDANA May 10, 2017 19:44
[2017-05-10 20:00] VITALS: BP 164/91
--- NOTE | 2017-05-10 20:30 | Consultation ---
DATE OF CONSULTATION: 05/10/2017 CARDIAC ELECTROPHYSIOLOGY CONSULTATION CONSULTING PHYSICIAN: Andrew Sandoval M.D. REFERRING PHYSICIANS: 1. Tommy Enrique M.D. 2. Phan Singleton M.D. REASON FOR CONSULTATION: Consideration for permanent pacemaker implantation. HISTORY OF PRESENT ILLNESS: The patient is a 67-year-old lady with history of hypertension, COPD, and history of bradycardia was admitted on 05/05/2017 for syncope. The patient was evaluated by Dr. Singleton from Cardiology perspective and noted that the patient had first-degree AV block at baseline as well as second-degree AV block on a just routine 12-lead EKG. The patient also had episodes of complete heart block of more than four seconds at around 8 o'clock in the morning on 05/09/2017. Cardiac Electrophysiology consultation was requested for consideration of a permanent pacemaker. It is of note that the patient was not on digoxin or beta antonio or calcium channel antonio. The patient was on low-dose clonidine that has already been discontinued. PAST MEDICAL HISTORY: As mentioned above. FAMILY HISTORY: Noncontributory. SOCIAL HISTORY: She lives at home. Does not smoke or drink alcohol. REVIEW OF SYSTEMS: Thoroughly performed and was negative other than what was mentioned in the history of present illness. PHYSICAL EXAMINATION: VITAL SIGNS: Blood pressure is 130/70, pulse 70, respirations 18, and she is afebrile. HEAD AND NECK: Shows no JVD or carotid bruits. LUNGS: Clear. CARDIOVASCULAR: Shows regular S1 and S2 with no gallop or murmur. ABDOMEN: Soft. EXTREMITIES: No pitting edema. LABORATORY DATA: White count of 5.5, hemoglobin of 9.6, hematocrit of 27.5, and platelet count of 215. Sodium 132, potassium 4.4, BUN of 10, creatinine 0.8, and glucose of 92. Troponin is negative. ASSESSMENT AND PLAN: 1. Intermittent complete heart block while the patient is awake. The patient is currently off any sinus adelaide or AV adelaide blocking agents. She was on small dose of clonidine . We will watch the patient on telemetry for another 24 hours. At this time, the patient is reluctant about a permanent pacemaker. Anyways, I would like to discuss with her family members if she needs one. 2. Hypertension. Currently, on Norvasc 5 mg daily. Further evaluation by Dr. Singleton. 3. Hyponatremia. 4. Chronic obstructive pulmonary disease. 5. History of cerebrovascular accident. 6. Anemia. Thank you very much, Dr. Enrique and Dr. Singleton, for allowing me to participate in the care of this patient. Please do not hesitate to contact me for any questions regarding my evaluation. Andrew Sandoval M.D. DR: MCKENNA JOB#: [id number] CC:
[2017-05-11] VITALS: BP 146/94
[2017-05-11 04:00] VITALS: BP 140/86
[2017-05-11 08:00] VITALS: BP 148/82
[2017-05-11 08:58] LABS: EOSINOPHILS % (AUTO) 5.4 % (0.0-3.0); HEMATOCRIT 29.7 % (37.0-47.0); HEMOGLOBIN 10.5 G/DL (12.0-16.0); LYMPHOCYTES % (AUTO) 27.6 % (20.0-45.0); MEAN CORPUSCULAR VOLUME 95 FL (80-99); MONOCYTES % (AUTO) 11.7 % (1.0-10.0); NEUTROPHILS % (AUTO) 54.3 % (45.0-75.0); PLATELET COUNT 259 K/UL (150-450); RED BLOOD COUNT 3.14 M/UL (4.20-5.40); RED CELL DISTRIBUTION WIDTH 11.1 % (11.6-14.8); WHITE BLOOD COUNT 6.8 K/UL (4.8-10.8)
[2017-05-11 09:31] LABS: ANION GAP 11 mmol/L (5-15); BLOOD UREA NITROGEN 17 mg/dL (7-18); CALCIUM 9.6 MG/DL (8.5-10.1); CARBON DIOXIDE 23 MMOL/L (21-32); CHLORIDE 100 MMOL/L (98-107); CREATININE 0.9 MG/DL (0.55-1.30); POTASSIUM 4.1 MMOL/L (3.5-5.1); SODIUM 133 MMOL/L (136-145)
[2017-05-11] MEDS: Heparin 5000 units/ml inj SUBQ SCH ×2 (09:55→20:15)
[2017-05-11 12:00] VITALS: BP 158/96
--- NOTE | 2017-05-11 14:16 | Cardiology Progress Note ---
Assessment/Plan Assessment/Plan 1. Syncopal episode. 2. History of hypertension. 3. Recent upper respiratory tract infection. 4. Hypotension. 5. Hyponatremia. 6. AV block prolonged RR interval doing better keep off diuretic no further blocks hip ct neg for fx off ivf i have explained to pt the risk of recurrent syncope fall collapse and injury should block occur before she has pacemaker implantation , she indicated understanding her bp is elevated will increase norvasc she will need to see her associate teacher soon after dc to watch bp and address she has appoint with dr de leon as soon as she gets discharged she indicates i have given her copies of the avblock episodes to show her cards avoid neg chronotropic agent for now home soon Subjective Cardiovascular: Denies: chest pain, irregular heart rate, lightheadedness, palpitations, syncope Respiratory: Denies: shortness of breath, SOB with excertion Gastrointestinal/Abdominal: Denies: abdominal pain, black stools Genitourinary: Denies: burning Subjective pelvicand hip pain better Objective Last 24 Hour Vital Signs Date Time Temp Pulse Resp B/P (MAP) Pulse Ox O2 Delivery O2 Flow Rate FiO2 05/11/17 12:00 98.1 97 20 158/96 98 05/11/17 12:00 7 05/11/17 09:52 92 148/82 05/11/17 08:00 98.1 92 20 148/82 100 05/11/17 08:00 88 05/11/17 04:00 97.7 72 18 140/86 96 05/11/17 04:00 82 05/11/17 00:00 91 05/11/17 00:00 96.8 83 18 146/94 99 05/10/17 20:00 97.5 78 18 164/91 98 05/10/17 20:00 85 05/10/17 16:00 85 05/10/17 16:00 98.4 90 18 139/72 97 Intake and Output 05/10/17 05/11/17 19:00 07:00 Intake Total 870 ml Output Total 250 ml 750 ml Balance 620 ml -750 ml Intake Oral 870 ml Output Urine Total 250 ml 750 ml # Bowel Movements 2 1 Laboratory Tests Test 05/11/17 07:30 White Blood Count 6.8 K/UL (4.8-10.8) Red Blood Count 3.14 M/UL (4.20-5.40) L Hemoglobin 10.5 G/DL (12.0-16.0) L Hematocrit 29.7 % (37.0-47.0) L Mean Corpuscular Volume 95 FL (80-99) Mean Corpuscular Hemoglobin 33.5 PG (27.0-31.0) H Mean Corpuscular Hemoglobin Concent 35.4 G/DL (32.0-36.0) Red Cell Distribution Width 11.1 % (11.6-14.8) L Platelet Count 259 K/UL (150-450) Mean Platelet Volume 6.8 FL (6.5-10.1) Neutrophils (%) (Auto) 54.3 % (45.0-75.0) Lymphocytes (%) (Auto) 27.6 % (20.0-45.0) Monocytes (%) (Auto) 11.7 % (1.0-10.0) H Eosinophils (%) (Auto) 5.4 % (0.0-3.0) H Basophils (%) (Auto) 1.0 % (0.0-2.0) Sodium Level 133 MMOL/L (136-145) L Potassium Level 4.1 MMOL/L (3.5-5.1) Chloride Level 100 MMOL/L (98-107) Carbon Dioxide Level 23 MMOL/L (21-32) Anion Gap 11 mmol/L (5-15) Blood Urea Nitrogen 17 mg/dL (7-18) Creatinine 0.9 MG/DL (0.55-1.30) Estimat Glomerular Filtration Rate > 60 mL/min (>60) Glucose Level 92 MG/DL (74-106) Calcium Level 9.6 MG/DL (8.5-10.1) REJI SALDANA May 11, 2017 14:16
[2017-05-11] MEDS: Morphine Sulfate 4mg/ml Inj IVP PRN ×2 (14:49→22:42)
--- NOTE | 2017-05-11 15:15 | Pulmonology Progress Note ---
Assessment/Plan Assessment/Plan ASSESSMENT Syncopal episode ( prob due to antiHTN medication and dehydration) Acute hypoNa (likely due to diuretic) JAKY (possibly due to dehydration~ and diuretic) HTN COPD L hip pain (after fall) nondisplaced left sided sacral fracture bilateral pubic symphyseal and left inferior pubic ramus fractures, nondisplaced Hx of CVA anemia PLAN OF CARE BP now stable started on Clonidine as per cardio hold other anti HTN for now hold diuretic IVF orthostatic VS -with small changes, but no significant, dizziness resovled O2 HHN prn cardio follows per cardio: keep off diuretic no further blocks avoid negative chronotropic Fall precautions PT/OT doing much better dizziness resolved MRI brain negative for any acute IC pathology X ray L hip no fracture CT L hip no fracture MRI was Positive for nondisplaced left sided sacral fracture Bilateral pubic symphyseal and left inferior pubic ramus fractures, nondisplaced pain management PT/OT consider ortho eval per PMD however, already feeling better, non- operable fx, rest , pain management and PT Rx DVT prophylaxis Monitor renal parameters correct lytes as needed, avoid nephrotoxic monitor HH, anemia w/up c/w anemia of chronic disease may need short term rehab wants to go home, strong family support dc plan for today with home with [facility] for PT and fup with cardio this coming week cardio eval and recs greatly appreciated case discussed and evaluated by supervising physician Subjective Allergies: Coded Allergies: No Known Allergies (Verified Allergy, Unknown, 12/19/05) Subjective no dizziness, no CP no SOB CT hip negative for fx working with PT/OT - per therapists doing much better Objective Last 24 Hour Vital Signs Date Time Temp Pulse Resp B/P (MAP) Pulse Ox O2 Delivery O2 Flow Rate FiO2 05/11/17 12:00 98.1 97 20 158/96 98 05/11/17 12:00 7 05/11/17 09:52 92 148/82 05/11/17 08:00 98.1 92 20 148/82 100 05/11/17 08:00 88 05/11/17 04:00 97.7 72 18 140/86 96 05/11/17 04:00 82 05/11/17 00:00 91 05/11/17 00:00 96.8 83 18 146/94 99 2/19/18 20:00 97.5 78 18 164/91 98 05/10/17 20:00 85 05/10/17 16:00 85 05/10/17 16:00 98.4 90 18 139/72 97 Intake and Output 05/10/17 05/11/17 19:00 07:00 Intake Total 870 ml Output Total 250 ml 750 ml Balance 620 ml -750 ml Intake Oral 870 ml Output Urine Total 250 ml 750 ml # Bowel Movements 2 1 Objective General Appearance: no acute distress HEENT: normocephalic, atraumatic, anicteric, mucous membranes moist, PERRL Respiratory/Chest: chest wall non-tender, lungs clear, normal breath sounds, no respiratory distress, no accessory muscle use Cardiovascular: normal peripheral pulses, normal rate, regular rhythm - SR on tele Abdomen: normal bowel sounds, soft, non tender Extremities: no edema Neurologic/Psychiatric: alert, oriented x 3, responsive Musculoskeletal: normal muscle bulk Laboratory Tests 05/11/17 07:30: White Blood Count 6.8, Red Blood Count 3.14L, Hemoglobin 10.5L, Hematocrit 29.7L , Mean Corpuscular Volume 95, Mean Corpuscular Hemoglobin 33.5H, Mean Corpuscular Hemoglobin Concent 35.4, Red Cell Distribution Width 11.1L, Platelet Count 259, Mean Platelet Volume 6.8, Neutrophils (%) (Auto) 54.3, Lymphocytes (%) (Auto) 27.6, Monocytes (%) (Auto) 11.7H, Eosinophils (%) (Auto) 5.4H, Basophils (%) (Auto) 1.0, Sodium Level 133L, Potassium Level 4.1, Chloride Level 100, Carbon Dioxide Level 23, Anion Gap 11, Blood Urea Nitrogen 17, Creatinine 0.9, Estimat Glomerular Filtration Rate > 60, Glucose Level 92, Calcium Level 9.6 Current Medications Medications (Trade) Dose Ordered Sig/Oumar Route PRN Reason Start Time Stop Time Status Last Admin Dose Admin Acetaminophen (Tylenol) 650 mg Q4H PRN ORAL fever (temp>100.5F)/headache 05/07/17 15:45 06/06/17 15:44 05/07/17 17:01 Al Hydroxide/Mg Hydroxide (Mylanta II) 30 ml Q6H PRN ORAL dyspepsia 05/06/17 14:45 06/05/17 14:44 Amlodipine Besylate (Norvasc) 7.5 mg DAILY ORAL 05/12/17 09:00 06/11/17 08:59 Dextrose (Dextrose 50%) STAT PRN IV Hypoglycemia 05/06/17 14:45 06/05/17 14:44 Heparin Sodium (Porcine) (Heparin 5000 units/ml) 5,000 units EVERY 12 HOURS SUBQ 05/06/17 21:00 06/05/17 20:59 05/11/17 09:55 Lorazepam (Ativan 2mg/ml 1ml) 0.5 mg Q4H PRN IV For Anxiety 05/06/17 14:45 05/13/17 14:44 Morphine Sulfate (Morphine Sulfate) 1 mg Q4H PRN IVP For Pain 7-10 05/07/17 14:00 05/13/17 14:44 05/11/17 14:49 Nitroglycerin (Ntg) 0.4 mg Q5M X 3 DOSES PRN SL Prn Chest Pain 05/06/17 14:45 06/05/17 14:44 Ondansetron HCl (Zofran) 4 mg Q6H PRN IVP Nausea & Vomiting 05/06/17 14:45 06/05/17 14:44 Polyethylene Glycol (Miralax) 17 gm HSPRN PRN ORAL Constipation 05/06/17 14:45 06/05/17 14:44 05/09/17 08:32 Temazepam (Restoril) 15 mg HSPRN PRN ORAL Insomnia 05/06/17 14:45 05/13/17 14:44 05/06/17 23:47 Isela Crawford NP (Vanchtein) May 11, 2017 15:15
--- NOTE | 2017-05-11 15:32 | Cardiology Report ---
APPROVED REPORT EKG Measurement Heart [id number] Sinus rhythm with 1st degree AV block Low voltage QRS Borderline ECG
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
--- NOTE | 2017-05-11 15:55 | Cardiac Electrophysiology PN ---
Assessment/Plan Assessment/Plan 1. Syncope and Intermittent complete heart block while the patient is awake at 8 AM. The patient is currently off any sinus adelaide or AV adelaide blocking agents. She was on small dose of clonidine that was DCed. Watch the patient on telemetry for another 24 hours. Likely needs pacer as also has 1st degree and intermittent second degree AVB. 2. Hypertension. Currently, on Norvasc 7.[address] Singleton. 3. Hyponatremia. 4. Chronic obstructive pulmonary disease. 5. History of cerebrovascular accident. 6. Anemia. Subjective Subjective Remained in SR with 1:1 overnight. No chest pain or SOB. Objective Last 24 Hour Vital Signs Date Time Temp Pulse Resp B/P (MAP) Pulse Ox O2 Delivery O2 Flow Rate FiO2 05/11/17 12:00 98.1 97 20 158/96 98 05/11/17 12:00 7 05/11/17 09:52 92 148/82 05/11/17 08:00 98.1 92 20 148/82 100 05/11/17 08:00 88 05/11/17 04:00 97.7 72 18 140/86 96 05/11/17 04:00 82 05/11/17 00:00 91 05/11/17 00:00 96.8 83 18 146/94 99 05/10/17 20:00 97.5 78 18 164/91 98 05/10/17 20:00 85 05/10/17 16:00 85 05/10/17 16:00 98.4 90 18 139/72 97 Intake and Output 05/10/17 05/11/17 19:00 07:00 Intake Total 870 ml Output Total 250 ml 750 ml Balance 620 ml -750 ml Intake Oral 870 ml Output Urine Total 250 ml 750 ml # Bowel Movements 2 1 Laboratory Tests Test 05/11/17 07:30 White Blood Count 6.8 K/UL (4.8-10.8) Red Blood Count 3.14 M/UL (4.20-5.40) L Hemoglobin 10.5 G/DL (12.0-16.0) L Hematocrit 29.7 % (37.0-47.0) L Mean Corpuscular Volume 95 FL (80-99) Mean Corpuscular Hemoglobin 33.5 PG (27.0-31.0) H Mean Corpuscular Hemoglobin Concent 35.4 G/DL (32.0-36.0) Red Cell Distribution Width 11.1 % (11.6-14.8) L Platelet Count 259 K/UL (150-450) Mean Platelet Volume 6.8 FL (6.5-10.1) Neutrophils (%) (Auto) 54.3 % (45.0-75.0) Lymphocytes (%) (Auto) 27.6 % (20.0-45.0) Monocytes (%) (Auto) 11.7 % (1.0-10.0) H Eosinophils (%) (Auto) 5.4 % (0.0-3.0) H Basophils (%) (Auto) 1.0 % (0.0-2.0) Sodium Level 133 MMOL/L (136-145) L Potassium Level 4.1 MMOL/L (3.5-5.1) Chloride Level 100 MMOL/L (98-107) Carbon Dioxide Level 23 MMOL/L (21-32) Anion Gap 11 mmol/L (5-15) Blood Urea Nitrogen 17 mg/dL (7-18) Creatinine 0.9 MG/DL (0.55-1.30) Estimat Glomerular Filtration Rate > 60 mL/min (>60) Glucose Level 92 MG/DL (74-106) Calcium Level 9.6 MG/DL (8.5-10.1) Objective HEAD AND NECK: Shows no JVD or carotid bruits. LUNGS: Clear. CARDIOVASCULAR: Shows regular S1 and S2 with no gallop or murmur. ABDOMEN: Soft. EXTREMITIES: No pitting edema. FLIP HOPE May 11, 2017 15:55
[2017-05-11 16:00] VITALS: BP 171/98
[2017-05-11 20:00] VITALS: BP 153/97
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
[2017-05-12] VITALS: BP 155/82
--- NOTE | 2017-05-12 00:15 | Progress Note ---
DATE: 05/11/2017 SUBJECTIVE: The patient had an MRI yesterday. She is still having pain on the left, difficulty getting up. She is able to ambulate, but does feel some discomfort on the left side. She had no issues over the weekend. PHYSICAL EXAMINATION: The patient is alert and oriented. She is resting comfortably on exam bed. Posterior calf is soft. Tender to palpation on pubic rami as well as the left SI joint area. LABORATORY AND DIAGNOSTIC DATA: MRI of the pelvis was reviewed, which showed bilateral pubic symphysis signal changes as well as a pressure in the left inferior pubic rami. ASSESSMENT: Left pubic rami fracture with sacral impaction. DISCUSSION: At this point, she does have an occult fracture of the pelvis and this could be treated with closed treatment. No operative intervention is required. She will be weightbearing as tolerated with a walker. Clearly at this point, she has some cardiac issues and is a candidate for pacemaker placement, therefore, cannot start physical therapy until she is cleared by Cardiology. I discussed with her it takes 6 to 12 weeks for this to heal. She gets appropriate pain medication with anti-inflammatories and Tylenol. If she still has issues, Miacalcin nose spray may also be an alternative. Kalia Hayward M.D. DR: JOHN PAUL JOB#: [id number] CC: DAJA
[2017-05-12 04:00] VITALS: BP 135/86
[2017-05-12 08:26] LABS: BASOPHILS % (AUTO) 1.1 % (0.0-2.0); EOSINOPHILS % (AUTO) 6.9 % (0.0-3.0); HEMOGLOBIN 10.8 G/DL (12.0-16.0); LYMPHOCYTES % (AUTO) 28.2 % (20.0-45.0); MEAN CORPUSCULAR VOLUME 95 FL (80-99); MONOCYTES % (AUTO) 11.6 % (1.0-10.0); NEUTROPHILS % (AUTO) 52.3 % (45.0-75.0); PLATELET COUNT 282 K/UL (150-450); RED BLOOD COUNT 3.28 M/UL (4.20-5.40); RED CELL DISTRIBUTION WIDTH 11.4 % (11.6-14.8)
[2017-05-12 08:36] LABS: ANION GAP 10 mmol/L (5-15); BLOOD UREA NITROGEN 14 mg/dL (7-18); CALCIUM 9.3 MG/DL (8.5-10.1); CARBON DIOXIDE 24 MMOL/L (21-32); CHLORIDE 99 MMOL/L (98-107); CREATININE 0.8 MG/DL (0.55-1.30); POTASSIUM 4.1 MMOL/L (3.5-5.1); SODIUM 132 MMOL/L (136-145)
[2017-05-12 09:00] VITALS: BP 152/84
[2017-05-12] MEDS: Heparin 5000 units/ml inj SUBQ SCH ×2 (09:09→21:05)
[2017-05-12] MEDS: Morphine Sulfate 4mg/ml Inj IVP PRN ×2 (09:18→21:05)
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
[2017-05-12 12:00] VITALS: BP 156/88
--- NOTE | 2017-05-12 12:23 | Pulmonology Progress Note ---
Assessment/Plan Problems: (1) Syncope (2) AV block (3) Hypertension (4) COPD (chronic obstructive pulmonary disease) (5) Polypharmacy Assessment/Plan pt is thinking about pace maker monitor BP respiratory treatment titrate fio2 to sat of 92% f/u cardiology recommendations. avoid negative chronotropic agents dc home if pt doesn't want pacemaker Subjective ROS Limited/Unobtainable: No Interval Events: no new complains Constitutional: Reports: no symptoms HEENT: Repors: no symptoms Allergies: Coded Allergies: No Known Allergies (Verified Allergy, Unknown, 12/19/05) Objective Last 24 Hour Vital Signs Date Time Temp Pulse Resp B/P (MAP) Pulse Ox O2 Delivery O2 Flow Rate FiO2 05/12/17 09:51 97.9 05/12/17 09:18 97.9 05/12/17 09:07 78 152/84 05/12/17 09:00 99.0 78 20 152/84 100 99.0 05/12/17 08:00 71 05/12/17 04:00 82 05/12/17 04:00 97.9 87 16 135/86 100 97.9 05/12/17 00:00 94 05/12/17 00:00 97.6 81 16 155/82 100 97.6 05/11/17 22:42 97.9 05/11/17 20:00 97.9 78 18 153/97 100 97.9 05/11/17 20:00 88 05/11/17 16:00 96.8 93 18 171/98 100 96.8 05/11/17 16:00 89 Intake and Output 05/11/17 05/12/17 19:00 07:00 Intake Total 708 ml Balance 708 ml Intake Oral 708 ml # Voids 3 2 # Bowel Movements 1 General Appearance: cachetic HEENT: normocephalic, atraumatic Respiratory/Chest: chest wall non-tender, lungs clear Breasts: no masses Cardiovascular: normal rate, regular rhythm Abdomen: normal bowel sounds, soft, non tender Genitourinary: normal external genitalia Extremities: no clubbing Neurologic/Psychiatric: 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 waxer 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 normal, no motor/sensory deficits Lymphatic: no groin adenopathy Laboratory Tests 05/12/17 07:10: White Blood Count 6.0, Red Blood Count 3.28L, Hemoglobin 10.8L, Hematocrit 31.0L , Mean Corpuscular Volume 95, Mean Corpuscular Hemoglobin 32.9H, Mean Corpuscular Hemoglobin Concent 34.8, Red Cell Distribution Width 11.4L, Platelet Count 282, Mean Platelet Volume 6.4L, Neutrophils (%) (Auto) 52.3, Lymphocytes (%) (Auto) 28.2, Monocytes (%) (Auto) 11.6H, Eosinophils (%) (Auto) 6.9H, Basophils (%) (Auto) 1.1, Sodium Level 132L, Potassium Level 4.1, Chloride Level 99, Carbon Dioxide Level 24, Anion Gap 10, Blood Urea Nitrogen 14 , Creatinine 0.8, Estimat Glomerular Filtration Rate > 60, Glucose Level 94, Calcium Level 9.3 Current Medications Medications (Trade) Dose Ordered Sig/Oumar Route PRN Reason Start Time Stop Time Status Last Admin Dose Admin Acetaminophen (Tylenol) 650 mg Q4H PRN ORAL fever (temp>100.5F)/headache 05/07/17 15:45 06/06/17 15:44 05/07/17 17:01 Al Hydroxide/Mg Hydroxide (Mylanta II) 30 ml Q6H PRN ORAL dyspepsia 05/06/17 14:45 06/05/17 14:44 Amlodipine Besylate (Norvasc) 7.5 mg DAILY ORAL 05/12/17 09:00 06/11/17 08:59 05/12/17 09:07 Dextrose (Dextrose 50%) STAT PRN IV Hypoglycemia 05/06/17 14:45 06/05/17 14:44 Heparin Sodium (Porcine) (Heparin 5000 units/ml) 5,000 units EVERY 12 HOURS SUBQ 05/06/17 21:00 06/05/17 20:59 05/12/17 09:09 Lorazepam (Ativan 2mg/ml 1ml) 0.5 mg Q4H PRN IV For Anxiety 05/06/17 14:45 05/13/17 14:44 Morphine Sulfate (Morphine Sulfate) 1 mg Q4H PRN IVP For Pain 7-10 05/07/17 14:00 05/13/17 14:44 05/12/17 09:18 Nitroglycerin (Ntg) 0.4 mg Q5M X 3 DOSES PRN SL Prn Chest Pain 05/06/17 14:45 06/05/17 14:44 Ondansetron HCl (Zofran) 4 mg Q6H PRN IVP Nausea & Vomiting 05/06/17 14:45 06/05/17 14:44 Polyethylene Glycol (Miralax) 17 gm HSPRN PRN ORAL Constipation 05/06/17 14:45 06/05/17 14:44 05/09/17 08:32 Temazepam (Restoril) 15 mg HSPRN PRN ORAL Insomnia 05/06/17 14:45 05/13/17 14:44 05/06/17 23:47 EVANS ELLIS May 12, 2017 12:23
[2017-05-12 16:00] VITALS: BP 146/85
--- NOTE | 2017-05-12 16:25 | Cardiac Electrophysiology PN ---
Assessment/Plan Assessment/Plan 1. Syncope and Intermittent complete heart block while the patient is awake at 8 AM. The patient is currently off any sinus adelaide or AV adelaide blocking agents. She was on small dose of clonidine that was DCed. Had 2 other episodes of second degree AVB overnight. Likely needs pacer as also has 1st degree and intermittent second degree AVB and CHB. Patient still undecided re PPM implant. 2. Hypertension. Currently, on Norvasc 7.[address] Singleton. 3. Hyponatremia. 4. Chronic obstructive pulmonary disease. 5. History of cerebrovascular accident. 6. Anemia. Subjective Subjective Had 2 episodes of Mobitz type 2 overnight. No chest pain or SOB. Objective Last 24 Hour Vital Signs Date Time Temp Pulse Resp B/P (MAP) Pulse Ox O2 Delivery O2 Flow Rate FiO2 05/12/17 16:00 97.7 91 20 146/85 100 97.7 05/12/17 12:00 76 05/12/17 12:00 98.4 80 20 156/88 98 98.4 05/12/17 09:51 97.9 05/12/17 09:18 97.9 05/12/17 09:07 78 152/84 05/12/17 09:00 99.0 78 20 152/84 100 99.0 05/12/17 08:00 71 05/12/17 04:00 82 05/12/17 04:00 97.9 87 16 135/86 100 97.9 05/12/17 00:00 94 05/12/17 00:00 97.6 81 16 155/82 100 97.6 05/11/17 22:42 97.9 05/11/17 20:00 97.9 78 18 153/97 100 97.9 05/11/17 20:00 88 Intake and Output 05/11/17 05/12/17 19:00 07:00 Intake Total 708 ml Balance 708 ml Intake Oral 708 ml # Voids 3 2 # Bowel Movements 1 Laboratory Tests Test 05/12/17 07:10 White Blood Count 6.0 K/UL (4.8-10.8) Red Blood Count 3.28 M/UL (4.20-5.40) L Hemoglobin 10.8 G/DL (12.0-16.0) L Hematocrit 31.0 % (37.0-47.0) L Mean Corpuscular Volume 95 FL (80-99) Mean Corpuscular Hemoglobin 32.9 PG (27.0-31.0) H Mean Corpuscular Hemoglobin Concent 34.8 G/DL (32.0-36.0) Red Cell Distribution Width 11.4 % (11.6-14.8) L Platelet Count 282 K/UL (150-450) Mean Platelet Volume 6.4 FL (6.5-10.1) L Neutrophils (%) (Auto) 52.3 % (45.0-75.0) Lymphocytes (%) (Auto) 28.2 % (20.0-45.0) Monocytes (%) (Auto) 11.6 % (1.0-10.0) H Eosinophils (%) (Auto) 6.9 % (0.0-3.0) H Basophils (%) (Auto) 1.1 % (0.0-2.0) Sodium Level 132 MMOL/L (136-145) L Potassium Level 4.1 MMOL/L (3.5-5.1) Chloride Level 99 MMOL/L (98-107) Carbon Dioxide Level 24 MMOL/L (21-32) Anion Gap 10 mmol/L (5-15) Blood Urea Nitrogen 14 mg/dL (7-18) Creatinine 0.8 MG/DL (0.55-1.30) Estimat Glomerular Filtration Rate > 60 mL/min (>60) Glucose Level 94 MG/DL (74-106) Calcium Level 9.3 MG/DL (8.5-10.1) Objective HEAD AND NECK: Shows no JVD or carotid bruits. LUNGS: Clear. CARDIOVASCULAR: Shows regular S1 and S2 with no gallop or murmur. ABDOMEN: Soft. EXTREMITIES: No pitting edema. FLIP HOPE May 12, 2017 16:25
--- NOTE | 2017-05-12 19:47 | Cardiology Progress Note ---
Assessment/Plan Assessment/Plan 1. Syncopal episode. 2. History of hypertension. 3. Recent upper respiratory tract infection. 4. Hypotension. 5. Hyponatremia. 6. AV block prolonged RR interval doing better keep off diuretic occasion 2:1 block no sig pauses hip ct neg for fx off ivf i have explained to pt the risk of recurrent syncope fall collapse and injury should block occur before she has pacemaker implantation , she indicated understanding her bp is elevated will increase norvasc she will need to see her keno terminal operator soon after dc to watch bp and address she has appoint with dr de leon as soon as she gets discharged she indicates i have given her copies of the av block episodes to show her cards avoid neg chronotropic agent for now home soon norvasc to 10 mg dialy Subjective Cardiovascular: Denies: chest pain, lightheadedness, palpitations, syncope Respiratory: Denies: shortness of breath Gastrointestinal/Abdominal: Denies: abdominal pain Genitourinary: Denies: burning Subjective pelvicand hip pain better Objective Last 24 Hour Vital Signs Date Time Temp Pulse Resp B/P (MAP) Pulse Ox O2 Delivery O2 Flow Rate FiO2 05/12/17 16:00 97.7 91 20 146/85 100 97.7 05/12/17 16:00 91 05/12/17 12:00 76 05/12/17 12:00 98.4 80 20 156/88 98 98.4 05/12/17 09:51 97.9 05/12/17 09:18 97.9 05/12/17 09:07 78 152/84 05/12/17 09:00 99.0 78 20 152/84 100 99.0 05/12/17 08:00 71 05/12/17 04:00 82 05/12/17 04:00 97.9 87 16 135/86 100 97.9 05/12/17 00:00 94 05/12/17 00:00 97.6 81 16 155/82 100 97.6 05/11/17 22:42 97.9 05/11/17 20:00 97.9 78 18 153/97 100 97.9 05/11/17 20:00 88 General Appearance: no apparent distress, alert Neck: supple Cardiovascular: normal rate, regular rhythm, regularly irregular Respiratory/Chest: lungs clear, normal breath sounds Abdomen: normal bowel sounds, non tender, soft Extremities: no swelling Intake and Output 05/11/17 05/12/17 19:00 07:00 Intake Total 708 ml Balance 708 ml Intake Oral 708 ml # Voids 3 2 # Bowel Movements 1 Laboratory Tests Test 05/12/17 07:10 White Blood Count 6.0 K/UL (4.8-10.8) Red Blood Count 3.28 M/UL (4.20-5.40) L Hemoglobin 10.8 G/DL (12.0-16.0) L Hematocrit 31.0 % (37.0-47.0) L Mean Corpuscular Volume 95 FL (80-99) Mean Corpuscular Hemoglobin 32.9 PG (27.0-31.0) H Mean Corpuscular Hemoglobin Concent 34.8 G/DL (32.0-36.0) Red Cell Distribution Width 11.4 % (11.6-14.8) L Platelet Count 282 K/UL (150-450) Mean Platelet Volume 6.4 FL (6.5-10.1) L Neutrophils (%) (Auto) 52.3 % (45.0-75.0) Lymphocytes (%) (Auto) 28.2 % (20.0-45.0) Monocytes (%) (Auto) 11.6 % (1.0-10.0) H Eosinophils (%) (Auto) 6.9 % (0.0-3.0) H Basophils (%) (Auto) 1.1 % (0.0-2.0) Sodium Level 132 MMOL/L (136-145) L Potassium Level 4.1 MMOL/L (3.5-5.1) Chloride Level 99 MMOL/L (98-107) Carbon Dioxide Level 24 MMOL/L (21-32) Anion Gap 10 mmol/L (5-15) Blood Urea Nitrogen 14 mg/dL (7-18) Creatinine 0.8 MG/DL (0.55-1.30) Estimat Glomerular Filtration Rate > 60 mL/min (>60) Glucose Level 94 MG/DL (74-106) Calcium Level 9.3 MG/DL (8.5-10.1) REJI SALDANA May 12, 2017 19:47
[2017-05-12 20:00] VITALS: BP 148/85
--- NOTE | 2017-05-12 21:53 | Diagnostic Imaging Report ---
APPROVED REPORT CPT Code: 32013 Vascular Symptoms Syncope Doppler Spectral Velocity Analysis RightLeft RIGHT SIDE: CCA/ECA - Imaging reveals no significant plaque in the common carotid and external carotid arteries. ICA - Imaging reveals irregular plaque in the internal carotid artery. The Doppler signal indicates the degree of stenosis is minimal (10%) in the internal carotid artery. VERTEBRAL - The vertebral artery is patent, without evidence of stenosis or steal. carotid arteries. ECA - Imaging reveals irregular plaque in the external carotid artery. The Doppler signal indicates the degree of stenosis is minimal (10%) in the external carotid artery. VERTEBRAL - The vertebral artery is patent, without evidence of stenosis or steal.
--- NOTE | 2017-05-12 21:56 | Diagnostic Imaging Report ---
APPROVED REPORT CPT Code: 03263 Vascular Symptoms Syncope Doppler Spectral Velocity Analysis RightLeft BILATERAL: CCA/BULB - Imaging reveals irregular, minimal plaque (10-20%) in both carotid internal and external carotid arteries. The Doppler spectral flow analysis is within normal limits throughout the internal and external carotid arteries. VERTEBRALS - Imaging reveals both vertebral arteries to be patent, without evidence of stenosis or steal.
[2017-05-13] VITALS: BP 158/65
[2017-05-13 04:00] VITALS: BP 151/87
[2017-05-13 07:20] LABS: BASOPHILS % (AUTO) 1.2 % (0.0-2.0); EOSINOPHILS % (AUTO) 7.8 % (0.0-3.0); HEMOGLOBIN 10.4 G/DL (12.0-16.0); LYMPHOCYTES % (AUTO) 30.8 % (20.0-45.0); MEAN CORPUSCULAR VOLUME 95 FL (80-99); MONOCYTES % (AUTO) 13.6 % (1.0-10.0); NEUTROPHILS % (AUTO) 46.6 % (45.0-75.0); PLATELET COUNT 309 K/UL (150-450); RED BLOOD COUNT 3.05 M/UL (4.20-5.40); RED CELL DISTRIBUTION WIDTH 11.2 % (11.6-14.8); WHITE BLOOD COUNT 6.3 K/UL (4.8-10.8)
[2017-05-13 07:22] LABS: ANION GAP 8 mmol/L (5-15); BLOOD UREA NITROGEN 15 mg/dL (7-18); CALCIUM 9.4 MG/DL (8.5-10.1); CARBON DIOXIDE 24 MMOL/L (21-32); CHLORIDE 98 MMOL/L (98-107); CREATININE 0.9 MG/DL (0.55-1.30); POTASSIUM 4.1 MMOL/L (3.5-5.1); SODIUM 130 MMOL/L (136-145)
[2017-05-13 08:00] VITALS: BP 155/94
[2017-05-13] MEDS: Heparin 5000 units/ml inj SUBQ SCH (10:07)
[2017-05-13] MEDS: Morphine Sulfate 4mg/ml Inj IVP PRN (11:18)
[2017-05-13 12:00] VITALS: BP 161/89
--- NOTE | 2017-05-13 13:01 | Pulmonology Progress Note ---
Assessment/Plan Problems: (1) Syncope (2) AV block (3) Hypertension (4) COPD (chronic obstructive pulmonary disease) (5) Polypharmacy Assessment/Plan still waiting for the cardiologists to communicate. pt is thinking about pace maker monitor BP respiratory treatment titrate fio2 to sat of 92% f/u cardiology recommendations. avoid negative chronotropic agents dc home if pt doesn't want pacemaker and if cleared by cardio Subjective ROS Limited/Unobtainable: No Constitutional: Reports: no symptoms HEENT: Repors: no symptoms Respiratory: Reports: no symptoms Allergies: Coded Allergies: No Known Allergies (Verified Allergy, Unknown, 12/19/05) Objective Last 24 Hour Vital Signs Date Time Temp Pulse Resp B/P (MAP) Pulse Ox O2 Delivery O2 Flow Rate FiO2 05/13/17 12:00 97.7 79 20 161/89 98 97.7 05/13/17 10:06 94 155/90 05/13/17 08:00 97.0 94 21 155/94 98 97.0 05/13/17 04:00 81 05/13/17 04:00 97.0 90 20 151/87 97 97.0 05/13/17 00:00 97.0 96 158/65 97.0 05/13/17 00:00 89 05/12/17 20:00 81 05/12/17 20:00 98.9 74 20 148/85 99 98.9 05/12/17 16:00 97.7 91 20 146/85 100 97.7 05/12/17 16:00 91 Intake and Output 05/12/17 05/13/17 19:00 07:00 Intake Total 588 ml Balance 588 ml Intake Oral 588 ml # Voids 2 3 General Appearance: WD/WN HEENT: normocephalic, atraumatic Respiratory/Chest: chest wall non-tender, normal breath sounds Breasts: no masses Cardiovascular: normal peripheral pulses Abdomen: normal bowel sounds, soft, non tender Genitourinary: normal external genitalia Extremities: no cyanosis Skin: no lesions Neurologic/Psychiatric: no motor/sensory deficits, alert, normal mood/affect Lymphatic: no neck adenopathy Musculoskeletal: normal muscle bulk Laboratory Tests 05/13/17 06:30: White Blood Count 6.3, Red Blood Count 3.05L, Hemoglobin 10.4L, Hematocrit 29.0L , Mean Corpuscular Volume 95, Mean Corpuscular Hemoglobin 34.1H, Mean Corpuscular Hemoglobin Concent 35.8, Red Cell Distribution Width 11.2L, Platelet Count 309, Mean Platelet Volume 6.9, Neutrophils (%) (Auto) 46.6, Lymphocytes (%) (Auto) 30.8, Monocytes (%) (Auto) 13.6H, Eosinophils (%) (Auto) 7.8H, Basophils (%) (Auto) 1.2, Sodium Level 130L, Potassium Level 4.1, Chloride Level 98, Carbon Dioxide Level 24, Anion Gap 8, Blood Urea Nitrogen 15 , Creatinine 0.9, Estimat Glomerular Filtration Rate > 60, Glucose Level 91, Calcium Level 9.4 Current Medications Medications (Trade) Dose Ordered Sig/Oumar Route PRN Reason Start Time Stop Time Status Last Admin Dose Admin Acetaminophen (Tylenol) 650 mg Q4H PRN ORAL fever (temp>100.5F)/headache 05/07/17 15:45 06/06/17 15:44 05/07/17 17:01 Al Hydroxide/Mg Hydroxide (Mylanta II) 30 ml Q6H PRN ORAL dyspepsia 05/06/17 14:45 06/05/17 14:44 Amlodipine Besylate (Norvasc) 10 mg DAILY ORAL 05/13/17 09:00 06/12/17 08:59 05/13/17 10:06 Dextrose (Dextrose 50%) STAT PRN IV Hypoglycemia 05/06/17 14:45 06/05/17 14:44 Heparin Sodium (Porcine) (Heparin 5000 units/ml) 5,000 units EVERY 12 HOURS SUBQ 05/06/17 21:00 06/05/17 20:59 05/13/17 10:07 Lorazepam (Ativan 2mg/ml 1ml) 0.5 mg Q4H PRN IV For Anxiety 05/06/17 14:45 05/13/17 14:44 Morphine Sulfate (Morphine Sulfate) 1 mg Q4H PRN IVP For Pain 7-10 05/07/17 14:00 05/13/17 14:44 05/13/17 11:18 Nitroglycerin (Ntg) 0.4 mg Q5M X 3 DOSES PRN SL Prn Chest Pain 05/06/17 14:45 06/05/17 14:44 Ondansetron HCl (Zofran) 4 mg Q6H PRN IVP Nausea & Vomiting 05/06/17 14:45 06/05/17 14:44 Polyethylene Glycol (Miralax) 17 gm HSPRN PRN ORAL Constipation 05/06/17 14:45 06/05/17 14:44 05/09/17 08:32 Temazepam (Restoril) 15 mg HSPRN PRN ORAL Insomnia 05/06/17 14:45 05/13/17 14:44 05/06/17 23:47 EVANS ELLIS May 13, 2017 13:01
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
--- NOTE | 2017-05-13 16:46 | Cardiac Electrophysiology PN ---
Assessment/Plan Assessment/Plan 1. Syncope and Intermittent complete heart block while the patient is awake at 8 AM. The patient is currently off any sinus adelaide or AV adelaide blocking agents. She was on small dose of clonidine that was DCed. Had 2 other episodes of second degree AVB yesterday Needs pacer as also has 1st degree and intermittent second degree AVB and CHB. Patient still undecided . 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 2. Hypertension. Currently, on Norvasc 7.[address] Singleton. 3. Hyponatremia. 4. Chronic obstructive pulmonary disease. 5. History of cerebrovascular accident. 6. Anemia. Subjective Subjective No chest pain or SOB.Awaiting her ride. Refusing pacer. Objective Last 24 Hour Vital Signs Date Time Temp Pulse Resp B/P (MAP) Pulse Ox O2 Delivery O2 Flow Rate FiO2 05/13/17 12:00 97.7 79 20 161/89 98 97.7 05/13/17 12:00 83 05/13/17 10:06 94 155/90 05/13/17 08:00 80 05/13/17 08:00 97.0 94 21 155/94 98 97.0 05/13/17 04:00 81 05/13/17 04:00 97.0 90 20 151/87 97 97.0 05/13/17 00:00 97.0 96 158/65 97.0 05/13/17 00:00 89 05/12/17 20:00 81 05/12/17 20:00 98.9 74 20 148/85 99 98.9 Intake and Output 05/12/17 05/13/17 19:00 07:00 Intake Total 588 ml Balance 588 ml Intake Oral 588 ml # Voids 2 3 Laboratory Tests Test 05/13/17 06:30 White Blood Count 6.3 K/UL (4.8-10.8) Red Blood Count 3.05 M/UL (4.20-5.40) L Hemoglobin 10.4 G/DL (12.0-16.0) L Hematocrit 29.0 % (37.0-47.0) L Mean Corpuscular Volume 95 FL (80-99) Mean Corpuscular Hemoglobin 34.1 PG (27.0-31.0) H Mean Corpuscular Hemoglobin Concent 35.8 G/DL (32.0-36.0) Red Cell Distribution Width 11.2 % (11.6-14.8) L Platelet Count 309 K/UL (150-450) Mean Platelet Volume 6.9 FL (6.5-10.1) Neutrophils (%) (Auto) 46.6 % (45.0-75.0) Lymphocytes (%) (Auto) 30.8 % (20.0-45.0) Monocytes (%) (Auto) 13.6 % (1.0-10.0) H Eosinophils (%) (Auto) 7.8 % (0.0-3.0) H Basophils (%) (Auto) 1.2 % (0.0-2.0) Sodium Level 130 MMOL/L (136-145) L Potassium Level 4.1 MMOL/L (3.5-5.1) Chloride Level 98 MMOL/L (98-107) Carbon Dioxide Level 24 MMOL/L (21-32) Anion Gap 8 mmol/L (5-15) Blood Urea Nitrogen 15 mg/dL (7-18) Creatinine 0.9 MG/DL (0.55-1.30) Estimat Glomerular Filtration Rate > 60 mL/min (>60) Glucose Level 91 MG/DL (74-106) Calcium Level 9.4 MG/DL (8.5-10.1) Objective HEAD AND NECK: Shows no JVD or carotid bruits. LUNGS: Clear. CARDIOVASCULAR: Shows regular S1 and S2 with no gallop or murmur. ABDOMEN: Soft. EXTREMITIES: No pitting edema. FLIP HOPE May 13, 2017 16:46
--- NOTE | 2017-05-14 14:38 | Discharge Summary ---
Discharge Summary Hospital Course Date of Admission May 06, 2017 at 13:40 Date of Discharge May 13, 2017 at 16:50 Admitting Diagnosis SYNCOPE HPI Magda Jeffrey is a 67 year old female who was admitted on May 06, 2017 at 13: 40 for Syncope Hospital Course [id number] Discharge Discharge Disposition Patient was discharged to Home (01) Discharge Diagnoses: Nano Villarreal NP May 14, 2017 14:38
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
== END 2017-05-13 16:50 | disposition home or self-care (01) | DRG 309 ==
LOC: EMR 13:08 → 2E 13:40 → EDBEDREQ 18:45 → 2E 20:13
DX: I44.2 Atrioventricular block, complete (principal); S32.591A Other specified fracture of right pubis, initial encounter for closed fracture; N17.9 Acute kidney failure, unspecified; S32.10XA Unspecified fracture of sacrum, initial encounter for closed fracture; E87.1 Hypo-osmolality and hyponatremia; J44.9 Chronic obstructive pulmonary disease, unspecified; S32.592A Other specified fracture of left pubis, initial encounter for closed fracture; I44.1 Atrioventricular block, second degree; E86.0 Dehydration; I10 Essential (primary) hypertension; M25.551 Pain in right hip; W19.XXXA Unspecified fall, initial encounter; Y92.000 Kitchen of unspecified non-institutional (private) residence as the place of occurrence of the external cause; R55 Syncope and collapse; F17.200 Nicotine dependence, unspecified, uncomplicated; Z86.73 Personal history of transient ischemic attack (TIA), and cerebral infarction without residual deficits; T22.212A Burn of second degree of left forearm, initial encounter; R00.1 Bradycardia, unspecified; Z53.29 Procedure and treatment not carried out because of patient's decision for other reasons; D64.9 Anemia, unspecified
CPT/HCPCS: 36415; 70551; 71045; 72170; 73502; 80048; 80053; 80061; 81001; 82270; 82550; 82553; 82607; 82728; 82746; 83540; 83550; 84443; 84484; 85025; 85610; 85730; 87081; 93005; 93880; 99285

== ENCOUNTER 2017-09-10 16:43 | Emergency (ER) | payer MEDICARE, MEDICAID ==
[~2017-09-10] VITALS: Ht 165.1 cm; Wt 49.9 kg
[2017-09-10 17:32] VITALS: BP 193/98
--- NOTE | 2017-09-10 17:39 | Emergency Room Report ---
History of Present Illness General Chief Complaint: Pain Source: Patient Present Illness HPI Patient presents with complaints of right-sided rib cage pain Reports that yesterday she was reaching across her consult to adjust her rearview mirror When she injured the right rib cage area patient had taken some Tylenol however reports the pain continues Denies any vomiting or diarrhea denies any neck pain or photophobia Patient also now reports some distant history of fractures Allergies: Coded Allergies: No Known Allergies (Verified Allergy, Unknown, 12/19/05) Patient History Past Medical History: see triage record Pertinent Family History: none Reviewed Nursing Documentation: PMH: Agreed; PSxH: Agreed Nursing Documentation-PMH Past Medical History: No History, Except For Hx Cardiac Problems: Yes Hx Hypertension: Yes Hx COPD: Yes Hx Cancer: No Hx Gastrointestinal Problems: No Hx Neurological Problems: Yes Hx Cerebrovascular Accident: Yes - 2010 Review of Systems All Other Systems: negative except mentioned in HPI Physical Exam Vital Signs Date Time Temp Pulse Resp B/P (MAP) Pulse Ox O2 Delivery O2 Flow Rate FiO2 09/10/17 17:06 98.0 91 19 192/107 98 Room Air 98.1 Sp02 EP Interpretation: reviewed, normal General Appearance: well appearing, no apparent distress Head: normocephalic, atraumatic Eyes: bilateral eye PERRL, bilateral eye EOMI ENT: hearing grossly normal, normal pharynx Neck: full range of motion, supple Respiratory: lungs clear Cardiovascular #1: regular rate, rhythm, other - Tender on palpation of the mid axillary line just below the breast no obvious ecchymosis Gastrointestinal: non tender, soft Genitourinary: no CVA tenderness Musculoskeletal: back normal Neurologic: alert, oriented x3, responsive Skin: normal color, no rash Lymphatic: no adenopathy Medical Decision Making Diagnostic Impression: Primary Impression: Contusion ER Course Given the patient's discomfort in the location CT imaging is obtained there is no obvious signs of injury and the thorax region with the pain is patient has incidental findings with previous L-spine fractures patient does not have any discomfort in that area Provided with further pain medicine and requires close outpatient follow-up Rhythm Strip Diag. Results EP Interpretation: yes Rate: 77 Rhythm: NSR, no PVC's, no ectopy CT/MRI/US Diagnostic Results CT/MRI/US Diagnostic Results : Impression CT chestIMPRESSION: 1. No intrathoracic injury. 2. Age indeterminate compression fractures of the inferior endplate of L2 and the superior endplate of L3. Last Vital Signs Date Time Temp Pulse Resp B/P (MAP) Pulse Ox O2 Delivery O2 Flow Rate FiO2 09/10/17 17:32 98.2 74 16 193/98 100 Room Air 98.2 Status: improved Disposition: HOME, SELF-CARE Condition: Improved Scripts Acetaminophen With Codeine (T#3) (TYLENOL #3 TAB*) Y Tab 1 TAB ORAL Q8H PRN for For Pain, #10 TAB Prov: Karthik Jarrett DO 09/10/17 Ibuprofen* (MOTRIN*) 600 Mg Tablet 600 MG ORAL Q8H PRN for For Pain, #20 TAB 0 Refills Prov: Karthik Jarrett DO 09/10/17 Additional Instructions: Patient is provided with the discharge instructions notified to follow up with primary doctor in the next 2-3 days otherwise return to the er with any worsening symptoms. Please note that this report is being documented using [employer] technology. This can lead to erroneous entry secondary to incorrect interpretation by the dictating instrument. Karthik Jarrett DO Sep 10, 2017 17:39
[2017-09-10] MEDS ORDERED: Tylenol #3 tab (300mg/30mg) ORAL ONE (17:45)
[2017-09-10] MEDS ORDERED: Methocarbamol 750mg tab ORAL ONE (17:45)
[2017-09-10] MEDS ORDERED: cloNIDine 0.2mg Tab ORAL ONE (18:15)
[2017-09-10 18:46] VITALS: BP 207/103
[2017-09-10 19:25] VITALS: BP 192/103
--- NOTE | 2017-09-10 19:25 | Diagnostic Imaging Report ---
EXAM: CT Chest Without Intravenous Contrast CLINICAL HISTORY: TRAUMA TECHNIQUE: Axial computed tomography images of the chest without intravenous contrast. One or more of the following dose reduction techniques were used: automated exposure control, adjustment of the mA and/or kV according to patient size, use of iterative reconstruction technique. CTDI is 14.96 + 0.15 mGy and DLP is 549 mGy-cm. COMPARISON: No comparison FINDINGS: Lungs: No mass. No consolidation. Pleural space: Unremarkable. No pneumothorax. No effusion. Heart: Cardiomegaly. Bones/joints: Age indeterminate compression fractures of the inferior endplate of L2 and the superior endplate of L3. Soft tissues: Unremarkable. Vasculature: Unremarkable. Lymph nodes: No enlarged lymph nodes. Liver: Calcified granuloma in the liver.4 mm low attenuation focus in the left lobe of the liver. Kidneys and ureters: Left renal cyst. Stomach and bowel: Colonic diverticula. IMPRESSION: 1. No intrathoracic injury. 2. Age indeterminate compression fractures of the inferior endplate of L2 and the superior endplate of L3.
[2017-09-10] MEDS ORDERED: IBUPROFEN600 MG ORAL (20:12)
[2017-09-10] MEDS ORDERED: ACETAMINOPHEN-1 EAC1 ORAL (20:12)
[2017-09-10 20:19] VITALS: BP 179/99
[2017-09-10 20:21] VITALS: BP 179/99
== END 2017-09-10 20:25 | disposition home or self-care (01) ==
LOC: EMR 17:42
DX: S20.211A Contusion of right front wall of thorax, initial encounter (principal); X58.XXXA Exposure to other specified factors, initial encounter; Y92.9 Unspecified place or not applicable
CPT/HCPCS: 71250; 99283